=== PATIENT | male | born 1965 | race Caucasian/White ===

== ENCOUNTER 2016-11-26 17:28 | Emergency (ER) | payer MEDICARE, MEDICAID ==
[~2016-11-26] VITALS: Ht 167.6 cm; Wt 93.3 kg
[~2016-11-26 17:28] MED LIST: ALBUAER3 INH; ASPI1TAB69 PO; ATOR40TA16 PO; AZIT250T3 PO; BACT800T5 PO; CYCL1TAB29 PO; GABA300C5 PO; GLIP5TAB8 PO; HYDR-3535 PO; ISOS120T PO; LANTUS2P SQ; LYRI100C PO; MEDR4PAK PO; METO25TA6 PO; NITR0.4S SL; NYST10007 TOPICAL; PANT40TA3 PO; POTA10TA15 PO; PRED20 PO; PROM12.54 PO; RANI150C PO; SPIR25TA PO; SUMA100T2 PO
[2016-11-26 17:36] VITALS: BP 143/63; PULSE 106; RESP 18; TEMP 97.6; O2SAT 97
--- NOTE | 2016-11-26 17:53 | PD ---
HPI Chief Complaint: Pain: Acute or Chronic Time Seen by Provider: 17:47 Travel History International Travel<30 days: No Contact w/Intl Traveler<30days: No Traveled to known affect area: No History of Present Illness HPI PATIENT C/O ACUTE ON CHRONIC RLE PAIN FOR WHICH HE IS BEING FOLLOWED AND HAS HAD AN MRI FOR.....HOWEVER, HE ALSO C/O N/V WHICH OCCURRED [facility]OC WITH SEVERE RT HIP PAIN /LE PAIN.. .AFTER REVIEWING REPORT ON MRI FROM [facility]: MRI LUMBAR SPINE IMPRESSION: SMALL CENTRAL RIGHT PARACENTRAL DISC PROTRUSION AT L4/5 ABUTS THE RIGHT L5 NERVE ROOT IN LATERAL RECESS. THERE IS ARTHROPATHY AND FLUID IN THE FACETS AT L3/4. ALSO MILD BROAD BASED PROTRUSION AT L3/4 ABUTS BOTH L4 NERVE ROOTS IN LATERAL RECESS WELL THE EXITING BILATERAL L3 NERVE ROOTS. Past Medical History Diabetes mellitus type 2, on insulin History of CABG at age 37 5 vessel disease Hyperlipidemia Hypertension Chronic pain: Primarily located in his right leg and buttock. Tobacco abuse, current ENA Heartburn Peripheral neuropathy Past Surgical History Past Surgical History Triple bypass 2002 Stimulator placed 2015 Back surgery 2016 PFS Past Medical History Hx Anticoagulant Therapy: Yes (asa 81mg) Anxiety: Yes Depression: Yes Cardiac Catheterization: Yes Cardiovascular Problems: Yes (triple bypass mar 2003) High Cholesterol: Yes Chest Pain: Yes Coronary Artery Disease: Yes (TRIPLE BYPASS) Diabetes: Yes Diminished Hearing: No GERD: Yes Genitourinary: Yes (IBS) Headaches: Yes (Migraines) Hypertension: Yes Musculoskeletal: Yes ( CHRONIC BACK PROBLEMS) Neurologic: Yes (Neuropathy) Integumentary: Yes (CELLULITIS LEFT LEG 2006) Immunizations Current: Yes Migraines: Yes Myocardial Infarction: Yes ("FIVE HEART ATTACKS SINCE 2002.") Renal Failure: Yes Past Surgical History Body Medical Devices: Implanted spinal cord stimulator Coronary Artery Bypass Graft: Yes (2002) Other Surgery: Yes (Spinal cord stimulator) Social History Alcohol Use: No Tobacco Use: Yes (1 ppd) Substance Use: No Allergies-Medications (Allergen,Severity, Reaction): Coded Allergies: Lipitor (Verified Allergy, Mild, Pt denies allergy- states he currently takes this medication, 11/26/16) Pt denies allergy- states he currently takes this medication 03/08/15 Morphine (Verified Adverse Reaction, Mild, vomiting, 11/26/16) Reported Meds & Prescriptions Reported Meds & Active Scripts Active Proair Hfa 8.5 GM Inh (Albuterol Sulfate) 90 Mcg/Act Aer 1 Puff INH Q4H PRN 108 mcg/actuation Glipizide 5 Mg Tab 5 Mg PO BIDAC Take 30 minutes before a meal Sumatriptan (Sumatriptan Succinate) 100 Mg Tab 100 Mg PO ONCE PRN If a satisfactory response has not been obtained at 2 hours, a second dose may be administered Metoprolol Succinate ER 24 HR (Metoprolol Succinate) 25 Mg Tab 12.5 Mg PO DAILY Potassium Chloride Microencaps 10 Meq Tab 10 Meq PO DAILY Reported Percocet (Oxycodone-Acetaminophen) 10-325 mg Tab 1 Tab PO Q6H PRN Aspirin 81 Mg Chew 81 Mg CHEW DAILY Lantus Inj (Insulin Glargine) 1,000 Unit/10 Ml Vial 45 Units SQ DAILY Nitrostat SL (Nitroglycerin) 0.4 Mg Subl 0.4 Mg SL DIRECTED PRN 1 tablet under the tongue as needed for chest pain. Repeat every 5 minutes for a total of 3 DOSES or call 911 if NO relief. Atorvastatin (Atorvastatin Calcium) 40 Mg Tab 40 Mg PO HS Ranitidine (Ranitidine HCl) 150 Mg Cap 150 Mg PO BID Lyrica (Pregabalin) 100 Mg Cap 150 Mg PO BID Pantoprazole (Pantoprazole Sodium) 40 Mg Tab 40 Mg PO BID Isosorbide Mononitrate ER (Isosorbide Mononitrate) 120 Mg Cat 120 Mg PO DAILY Gabapentin 300 Mg Cap 400 Mg PO TID Review of Systems Except as stated in HPI: all other systems reviewed are Neg Gastrointestinal: Positive: Nausea, Vomiting Physical Exam Narrative GENERAL: SKIN: Warm and dry. HEAD: Atraumatic. Normocephalic. EYES: Pupils equal and round. No scleral icterus. No injection or drainage. ENT: No nasal bleeding or discharge. Mucous membranes pink and moist. NECK: Trachea midline. No JVD. CARDIOVASCULAR: Regular rate and rhythm. RESPIRATORY: No accessory muscle use. Clear to auscultation. Breath sounds equal bilaterally. GASTROINTESTINAL: Abdomen soft, non-tender, nondistended. Hepatic and splenic margins not palpable. MUSCULOSKELETAL: Extremities without clubbing, cyanosis, or edema. No obvious deformities. NEUROLOGICAL: Awake and alert. No obvious cranial nerve deficits. Motor grossly within normal limits. Five out of 5 muscle strength in the arms and legs. Normal speech. PSYCHIATRIC: Appropriate mood and affect; insight and judgment normal. Data Data Last Documented VS Vital Signs Date Time Temp Pulse Resp B/P Pulse Ox O2 Delivery O2 Flow Rate FiO2 11/26/16 19:13 16 11/26/16 18:48 74 110/57 100 Room Air 11/26/16 17:36 97.6 Orders Electrocardiogram (11/26/16 17:54) Complete Blood Count With Diff (11/26/16 17:54) Comprehensive Metabolic Panel (11/26/16 17:54) Ckmb (Isoenzyme) Profile (11/26/16 17:54) Troponin I (11/26/16 17:54) B-Type Natriuretic Peptide (11/26/16 17:54) Prothrombin Time / Inr (Pt) (11/26/16 17:54) Act Partial Throm Time (Ptt) (11/26/16 17:54) Lipase (11/26/16 17:54) Urinalysis - C+S If Indicated (11/26/16 17:54) Influenzae A/B Antigen (11/26/16 17:54) Chest, Single Ap (11/26/16 17:54) Salicylates (Aspirin) (11/26/16 17:54) Tylenol (Acetaminophen) (11/26/16 17:54) Hydromorphone Pf Inj (Dilaudid Pf Inj) (11/26/16 18:15) Ondansetron Inj (Zofran Inj) (11/26/16 18:15) Sodium Chlorid 0.9% 500 Ml Inj (Ns 500 M (11/26/16 18:15) Labs Laboratory Tests Test 11/26/16 11/26/16 11/26/16 18:15 18:30 19:15 Urine Color YELLOW Urine Turbidity CLEAR Urine pH 6.0 Urine Specific [place] 1.035 Urine Protein 30 mg/dL Urine Glucose (UA) 1000 OR GREATER mg/dL Urine Ketones 80 OR GREATER mg/dL Urine Occult Blood NEG Urine Nitrite NEG Urine Bilirubin MOD Urine Leukocyte Esterase NEG Urine RBC 0-3 /hpf Urine WBC 0-2 /hpf Urine Squamous Epithelial 0-5 /hpf Cells Microscopic Urinalysis Comment CULT NOT INDICATED White Blood Count 12.7 TH/MM3 Red Blood Count 6.09 MIL/MM3 Hemoglobin 16.4 GM/DL Hematocrit 49.2 % Mean Corpuscular Volume 80.9 FL Mean Corpuscular Hemoglobin 26.9 PG Mean Corpuscular Hemoglobin 33.3 % Concent Red Cell Distribution Width 13.4 % Platelet Count 199 TH/MM3 Mean Platelet Volume 9.2 FL Neutrophils (%) (Auto) 79.1 % Lymphocytes (%) (Auto) 12.8 % Monocytes (%) (Auto) 5.3 % Eosinophils (%) (Auto) 0.2 % Basophils (%) (Auto) 2.6 % Neutrophils # (Auto) 10.1 TH/MM3 Lymphocytes # (Auto) 1.6 TH/MM3 Monocytes # (Auto) 0.7 TH/MM3 Eosinophils # (Auto) 0.0 TH/MM3 Basophils # (Auto) 0.3 TH/MM3 CBC Comment DIFF FINAL Differential Comment B-Type Natriuretic Peptide 43 PG/ML Prothrombin Time 11.0 SEC Prothromb Time International 1.0 RATIO Ratio Activated Partial 29.9 SEC Thromboplast Time Sodium Level 139 MEQ/L Potassium Level 4.3 MEQ/L Chloride Level 102 MEQ/L Carbon Dioxide Level 25.9 MEQ/L Anion Gap 11 MEQ/L Blood Urea Nitrogen 20 MG/DL Creatinine 1.20 MG/DL Estimat Glomerular Filtration 64 ML/MIN Rate Random Glucose 152 MG/DL Calcium Level 9.2 MG/DL Total Bilirubin 0.5 MG/DL Aspartate Amino Transf 25 U/L (AST/SGOT) Alanine Aminotransferase 30 U/L (ALT/SGPT) Total Protein 7.0 GM/DL Albumin 3.5 GM/DL Lipase 83 U/L [facility] Medical Decision Making Medical Screen Exam Complete: Yes Emergency Medical Condition: Yes Medical Record Reviewed: Yes Interpretation(s) NSR 89, IRBBB, LVH, NONSPECIFIC STT CHANGES Differential Diagnosis ACUTE ON CHRONIC BREAKTHROUGH PAIN V ENTERITIS V SBO V ILEUS V ATYPICAL ND V NONSTEMI Narrative Course PATIENT NO E/O ND ON EKG, NO E/O SBO CLINICALLY, AND TOLERATED PO WELL ( FURTHERMORE PATIENT HIMSELF REFUSED CT HE WAS FEELING GREAT AFTER INITIAL DOSING OF PAIN MEDICATION). Diagnosis Primary Impression: ACUTE ON CHRONIC BREAKTHROUGH PAIN Disposition: 01 DISCHARGE HOME Condition: Stable Anant Morrow MD Nov 26, 2016 17:53
[2016-11-26] MEDS ORDERED: HYDROmorphone HCL PF 1 MG/ML VIAL IV PUSH ONE ×2 (18:15→20:00)
[2016-11-26] MEDS ORDERED: ONDANSETRON HCL 4 MG/2 ML VIAL IV PUSH ONE ×2 (18:15→20:00)
[2016-11-26] MEDS ORDERED: SODIUM CHLORID 0.9% 500 ML INJ 500 ML IV ONE (18:15)
--- NOTE | 2016-11-26 18:15 | RADRPT ---
EXAM DATE/TIME: 11/26/2016 18:00 [facility] COMPARISON: No previous studies available for comparison. INDICATIONS : Shortness of breath. MEDICAL HISTORY : Cardiovascular disease. Hypercholesterolemia. SURGICAL HISTORY : CABG. Spinal stimulator. ENCOUNTER: Initial ACUITY: 1 day PAIN SCORE: 0/10 LOCATION: Bilateral chest FINDINGS: A single view of the chest demonstrates the lungs to be symmetrically aerated without evidence of mas s, infiltrate or effusion. The cardiomediastinal contours are unremarkable. Osseous structures are intact. Evidence of prior median sternotomy.. CONCLUSION: The lungs are clear. Fabio Dockery MD on November 26, 2016 at 18:13 Board Certified Radiologist. This report was verified electronically.
[2016-11-26 18:41] LABS: AUTOMATED NEUTROPHIL # 10.1 TH/MM3 (1.8-7.7); BASOPHIL # 0.3 TH/MM3 (0-0.2); BASOPHIL % 2.6 % (0.0-2.0); EOSINOPHIL % 0.2 % (0.0-4.0); HEMATOCRIT 49.2 % (39.0-51.0); HEMO FLAGS DIFF FINAL; LYMPH % 12.8 % (9.0-44.0); LYMPHOCYTE # 1.6 TH/MM3 (1.0-4.8); MEAN CELL VOLUME 80.9 FL (80.0-100.0); MEAN CORPUSCULAR HEMOGLOBIN 26.9 PG (27.0-34.0); MEAN CORPUSCULAR HGB CONC 33.3 % (32.0-36.0); MONO % 5.3 % (0.0-8.0); NEUT % 79.1 % (16.0-70.0); PLATELET COUNT 199 TH/MM3 (150-450); RED BLOOD COUNT 6.09 MIL/MM3 (4.50-5.90); RED CELL DISTRIBUTION WIDTH 13.4 % (11.6-17.2); WHITE BLOOD COUNT 12.7 TH/MM3 (4.0-11.0)
[2016-11-26 18:45] LABS: BLOOD, URINE NEG (NEG); NITRITE,URINE NEG (NEG)
[2016-11-26] MEDS ORDERED: ASPI81CH CHEW (18:46)
[2016-11-26] MEDS ORDERED: PERC10TA27 PO (18:46)
[2016-11-26 18:48] VITALS: BP 110/57; PULSE 74; RESP 18; O2SAT 100
[2016-11-26 18:51] LABS: GLUCOSE,URINE 1000 OR GREATER mg/dL (NEG); KETONE, URINE 80 OR GREATER mg/dL (NEG)
[2016-11-26 18:52] LABS: URINE COLOR YELLOW (YELLW/STRAW)
[2016-11-26 18:53] LABS: COMMENT (UR) CULT NOT INDICATED; CULTURE IF INDICATED CULT NOT INDICATED; RBC, URINE 0-3 /hpf (0-3); SQUAMOUS EPITHELIAL CELL URINE 0-5 /hpf (0-5); WBC, URINE 0-2 /hpf (0-5)
[2016-11-26 19:06] VITALS: BP 120/63; PULSE 78; RESP 17; O2SAT 95
[2016-11-26 19:35] LABS: CHLORIDE 102 MEQ/L (98-107); POTASSIUM 4.3 MEQ/L (3.5-5.1); SODIUM (NA) 139 MEQ/L (136-145)
[2016-11-26 19:39] LABS: ANION GAP 11 MEQ/L (5-15); BICARBONATE 25.9 MEQ/L (21.0-32.0); BLOOD UREA NITROGEN 20 MG/DL (7-18)
[2016-11-26 19:40] LABS: APTT (PATIENT) 29.9 SEC (24.3-30.1)
[2016-11-26 19:41] LABS: ALT (GPT) 30 U/L (12-78)
[2016-11-26 19:42] LABS: AST (GOT) 25 U/L (15-37); GLOMERULAR FILTRATION RATE 64 ML/MIN (>89)
[2016-11-26 19:43] LABS: TOTAL BILIRUBIN ADULT 0.5 MG/DL (0.2-1.0)
[2016-11-26 19:44] LABS: ALKALINE PHOSPHATASE 97 U/L (45-117)
[2016-11-26] MEDS ORDERED: DEXAMETHASONE SOD PHOS 20 MG/5 ML VIAL IM ONE (20:00)
[2016-11-26 20:23] LABS: CREATINE KINASE 100 U/L (39-308)
[2016-11-26 20:38] VITALS: BP 105/55; PULSE 71; RESP 18; O2SAT 93
[2016-11-26 21:26] LABS: ACETAMINOPHEN LESS THAN 2.0 MCG/ML (10.0-30.0)
[2016-11-26 21:46] VITALS: BP 110/55; TEMP 97.8
--- NOTE | 2016-11-27 13:53 | EKG ---
Date Performed: 11/26/2016 Time Performed: 18:11:17 PTAGE: 51 years EKG: Sinus rhythm MARKED LEFT AXIS DEVIATION PATTERN CONSISTENT WITH PULMONARY DISEASE INCOMPLETE RIGHT BUNDLE BRANCH BLOCK LEFT VENTRICULAR HYPERTROPHY AND ST-T CHANGE Since previous tracing, no significant change note d ABNORMAL ECG PREVIOUS TRACING : 05/06/2015 10.24 DOCTOR: Jarvis Morton Interpretating Date/Time 11/27/2016 13:51:45
== END 2016-11-26 21:56 | disposition home or self-care (01) ==
LOC: PHED 17:28
DX: M79.604 Pain in right leg (principal); M25.551 Pain in right hip; G89.29 Other chronic pain; R11.2 Nausea with vomiting, unspecified; R94.31 Abnormal electrocardiogram [ECG] [EKG]; E11.9 Type 2 diabetes mellitus without complications; E78.5 Hyperlipidemia, unspecified; I10 Essential (primary) hypertension; G47.33 Obstructive sleep apnea (adult) (pediatric); N19 Unspecified kidney failure; I25.2 Old myocardial infarction; F17.200 Nicotine dependence, unspecified, uncomplicated; Z79.4 Long term (current) use of insulin; Z95.1 Presence of aortocoronary bypass graft; Z87.39 Personal history of other diseases of the musculoskeletal system and connective tissue; Z87.19 Personal history of other diseases of the digestive system; Z86.69 Personal history of other diseases of the nervous system and sense organs
CPT/HCPCS: 71010; 80053; 80307; 81001; 82550; 83690; 83880; 84484; 85025; 85610; 85730; 87804; 93005; 96361; 96374; 96375; 96376; 99285; J1100; J1170; J2405; J7040

== ENCOUNTER 2016-11-28 08:28 | Emergency (ER) | payer MEDICARE, MEDICAID ==
[~2016-11-28] VITALS: Ht 167.6 cm; Wt 93.0 kg
[~2016-11-28 08:28] MED LIST changes: +ASPI81CH CHEW; +PERC10TA27 PO
[2016-11-28 08:33] VITALS: BP 113/66; PULSE 82; RESP 16; TEMP 97.3; O2SAT 99
[2016-11-28] MEDS ORDERED: CYCLOBENZAPRINE HCL 10 MG TAB PO ONE (09:00)
[2016-11-28] MEDS ORDERED: HYDROmorphone HCL PF 1 MG/ML VIAL IM ONE (09:00)
[2016-11-28] MEDS ORDERED: KETOROLAC TROMETHAMINE 60 MG/2 ML (IM) VIAL IM ONE (09:00)
[2016-11-28] MEDS ORDERED: MEDR4PAK PO (09:06)
[2016-11-28] MEDS ORDERED: CYCL1TAB29 PO (09:06)
--- NOTE | 2016-11-28 09:07 | PD ---
HPI Chief Complaint: Musculoskeletal Complaint Time Seen by Provider: 08:40 Travel History International Travel<30 days: No Contact w/Intl Traveler<30days: No Traveled to known affect area: No History of Present Illness HPI Patient is a 51 year old male, with history of chronic pain, who comes in complaining of pain to his right hip. He was here 2 days ago for the same thing. He takes Percocet, 10mg, at home, which he says has not been helping. He had an MRI 3 weeks ago that showed and pinched nerve. He says he has been trying to get in to see his doctor because he believes a surgery would help him feel better. He says Saturday, he was helping his son lifting bowling balls when the increased pain started. The pain is in his right hip and shoots down his leg. He denies any direct trauma or falls. He denies any redness or warmth to his joint. PFSH Past Medical History Hx Anticoagulant Therapy: Yes (asa 81mg) Anxiety: Yes Depression: Yes Cardiac Catheterization: Yes Cardiovascular Problems: Yes (triple bypass mar 2003, [place] X 5) High Cholesterol: Yes Chest Pain: Yes Coronary Artery Disease: Yes (TRIPLE BYPASS) Diabetes: Yes Patient Takes Glucophage: No Diminished Hearing: No GERD: Yes Genitourinary: Yes (IBS) Headaches: Yes (Migraines) Hypertension: Yes Musculoskeletal: Yes ( CHRONIC BACK PROBLEMS) Neurologic: Yes (Neuropathy) Integumentary: Yes (CELLULITIS LEFT LEG 2006) Immunizations Current: Yes Migraines: Yes Myocardial Infarction: Yes ("FIVE HEART ATTACKS SINCE 2002.") Renal Failure: Yes Past Surgical History Body Medical Devices: Implanted spinal cord stimulator Coronary Artery Bypass Graft: Yes (2002) Other Surgery: Yes (Spinal cord stimulator) Social History Alcohol Use: No Tobacco Use: No (QUIT 15 DAYS AGO) Substance Use: No Allergies-Medications (Allergen,Severity, Reaction): Coded Allergies: Lipitor (Verified Allergy, Mild, Pt denies allergy- states he currently takes this medication, 11/28/16) Pt denies allergy- states he currently takes this medication 03/08/15 Morphine (Verified Adverse Reaction, Mild, vomiting, 11/28/16) Reported Meds & Prescriptions Reported Meds & Active Scripts Active Proair Hfa 8.5 GM Inh (Albuterol Sulfate) 90 Mcg/Act Aer 1 Puff INH Q4H PRN 108 mcg/actuation Glipizide 5 Mg Tab 5 Mg PO BIDAC Take 30 minutes before a meal Sumatriptan (Sumatriptan Succinate) 100 Mg Tab 100 Mg PO ONCE PRN If a satisfactory response has not been obtained at 2 hours, a second dose may be administered Metoprolol Succinate ER 24 HR (Metoprolol Succinate) 25 Mg Tab 12.5 Mg PO DAILY Potassium Chloride Microencaps 10 Meq Tab 10 Meq PO DAILY Reported Percocet (Oxycodone-Acetaminophen) 10-325 mg Tab 1 Tab PO Q6H PRN Aspirin 81 Mg Chew 81 Mg CHEW DAILY Lantus Inj (Insulin Glargine) 1,000 Unit/10 Ml Vial 45 Units SQ DAILY Nitrostat SL (Nitroglycerin) 0.4 Mg Subl 0.4 Mg SL DIRECTED PRN 1 tablet under the tongue as needed for chest pain. Repeat every 5 minutes for a total of 3 DOSES or call 911 if NO relief. Atorvastatin (Atorvastatin Calcium) 40 Mg Tab 40 Mg PO HS Ranitidine (Ranitidine HCl) 150 Mg Cap 150 Mg PO BID Lyrica (Pregabalin) 100 Mg Cap 150 Mg PO BID Pantoprazole (Pantoprazole Sodium) 40 Mg Tab 40 Mg PO BID Isosorbide Mononitrate ER (Isosorbide Mononitrate) 120 Mg Cat 120 Mg PO DAILY Gabapentin 300 Mg Cap 400 Mg PO TID Review of Systems General / Constitutional: No: Fever HENT: No: Headaches, Lightheadedness Cardiovascular: No: Chest Pain or Discomfort Respiratory: No: Shortness of Breath Gastrointestinal: No: Nausea, Vomiting Genitourinary: No: Dysuria, Decreased Urinary Output Musculoskeletal: Positive: Pain Skin: No Rash, No Change in Pigmentation Neurologic: No: Weakness, Dizziness, Sensory Disturbance Physical Exam Narrative GENERAL: Awake and alert, in no acute distress. SKIN: Focused skin assessment warm/dry. HEAD: Atraumatic. Normocephalic. EYES: Pupils equal and round. No scleral icterus. ENT: Mucous membranes pink and moist. CARDIOVASCULAR: Regular rate and rhythm. No murmur appreciated. RESPIRATORY: No accessory muscle use. Clear to auscultation. Breath sounds equal bilaterally. MUSCULOSKELETAL: No obvious deformities. No clubbing. No cyanosis. No edema. Pain with movement of the right hip. Tender to palpation of the hip and sacroiliac area on the right. No joint erythema, warmth or swelling. NEUROLOGICAL: Awake and alert. No obvious cranial nerve deficits. Motor grossly within normal limits. Normal speech. Data Data Last Documented VS Vital Signs Date Time Temp Pulse Resp B/P Pulse Ox O2 Delivery O2 Flow Rate FiO2 11/28/16 08:33 97.3 82 16 113/66 99 Orders Ketorolac Inj (Toradol Inj) (11/28/16 09:00) Cyclobenzaprine (Flexeril) (11/28/16 09:00) Hydromorphone Pf Inj (Dilaudid Pf Inj) (11/28/16 09:00) [facility] Medical Decision Making Medical Screen Exam Complete: Yes Emergency Medical Condition: Yes Medical Record Reviewed: Yes Differential Diagnosis muscle strain vs sciatica vs chronic pain Narrative Course Patient is a 51 year old male who comes in complaining of pain to his right hip. Exam shows pain with movement and tenderness to palpation. Patient given pain medicine. Will be discharged with Flexeril and a medrol dose pack. He is advised the steroids will raise his blood sugars and to adjust his medications for this. I spent time counseling the patient on other options besides opiates for pain control. I suggested he try NSAIDs and meet with his doctor to get back in physical therapy. Patient advised to follow up with his doctors. Advised to return to the ED as needed for any worsening symptoms. Diagnosis Primary Impression: Hip pain Qualified Code: M25.551 - Pain of right hip joint Patient Instructions: General Instructions, Hip Pain (ED) Additional Instructions: Follow up with your doctor. Try NSAIDs and physical therapy to help with pain. Monitor your sugar while taking the steroids as it will be increased due to the medication. Return to the ED as needed for any worsening symptoms. Scripts Methylprednisolone Dosepak (Medrol Dosepak)4 Mg Dspk4 Mg PO DIRECTED #1 DSPK Ref 0 Per Pharmacist direction Prov:Kimberly Torres MD 11/28/16 Cyclobenzaprine (Flexeril)10 Mg Tab10 Mg PO TID #15 TAB Ref 0 Prov:Kimberly Torres MD 11/28/16 Disposition: 01 DISCHARGE HOME Condition: Stable Kimberly Torres MD Nov 28, 2016 09:06
[2016-11-28 09:43] VITALS: BP 101/61
== END 2016-11-28 09:45 | disposition home or self-care (01) ==
LOC: PHED 08:28
DX: M25.551 Pain in right hip (principal); I10 Essential (primary) hypertension; I25.2 Old myocardial infarction
CPT/HCPCS: 96372; 99284; J1170; J1885

== ENCOUNTER 2016-12-25 09:57 | Emergency (ER) | payer MEDICARE, MEDICAID ==
[~2016-12-25] VITALS: Ht 170.2 cm; Wt 92.0 kg
[~2016-12-25 09:57] MED LIST changes: -ASPI1TAB69 PO; -AZIT250T3 PO; -BACT800T5 PO; -HYDR-3535 PO; -NYST10007 TOPICAL; -PRED20 PO; -PROM12.54 PO; -SPIR25TA PO
[2016-12-25 10:05] VITALS: BP 127/70; PULSE 110; RESP 18; TEMP 97.2; O2SAT 98
--- NOTE | 2016-12-25 11:17 | PD ---
HPI Chief Complaint: Skin Problem Time Seen by Provider: 11:05 Travel History International Travel<30 days: No Contact w/Intl Traveler<30days: No Traveled to known affect area: No History of Present Illness HPI 51-year-old male with past medical history of DM type II since emergency department for evaluation of a groin and penile rash 7 days. Patient reports that the rash is pruritic and painful and weeping. It is not responding to jock itch cream. He reports similar symptoms in the past but this one is more severe. He denies fever or chills. He denies dysuria, frequency, urgency, or testicular pain. Symptom severity moderate. Pain scale 3/10. PFSH Past Medical History Hx Anticoagulant Therapy: Yes (asa 81mg) Anxiety: Yes Depression: Yes Cardiac Catheterization: Yes Cardiovascular Problems: Yes (triple bypass mar 2003, [place] X 5) High Cholesterol: Yes Chest Pain: Yes Coronary Artery Disease: Yes (TRIPLE BYPASS) Diabetes: Yes Patient Takes Glucophage: No Diminished Hearing: No GERD: Yes Genitourinary: Yes (IBS) Headaches: Yes (Migraines) Hypertension: Yes Musculoskeletal: Yes ( CHRONIC BACK PROBLEMS) Neurologic: Yes (Neuropathy) Integumentary: Yes (CELLULITIS LEFT LEG 2006) Immunizations Current: Yes Migraines: Yes Myocardial Infarction: Yes ("FIVE HEART ATTACKS SINCE 2002.") Renal Failure: Yes ?: Not Past Surgical History Body Medical Devices: Implanted spinal cord stimulator Coronary Artery Bypass Graft: Yes (2002) Other Surgery: Yes (Spinal cord stimulator, removed) Social History Alcohol Use: No Tobacco Use: No (QUIT 15 DAYS AGO) Substance Use: No Allergies-Medications (Allergen,Severity, Reaction): Coded Allergies: atorvastatin (Unverified Allergy, Mild, Pt denies allergy- states he currently takes this medication, 12/25/16) Pt denies allergy- states he currently takes this medication 03/08/15 morphine (Unverified Adverse Reaction, Mild, vomiting, 12/25/16) Reported Meds & Prescriptions Reported Meds & Active Scripts Active Proair Hfa 8.5 GM Inh (Albuterol Sulfate) 90 Mcg/Act Aer 1 Puff INH Q4H PRN 108 mcg/actuation Glipizide 5 Mg Tab 5 Mg PO BIDAC Take 30 minutes before a meal Sumatriptan (Sumatriptan Succinate) 100 Mg Tab 100 Mg PO ONCE PRN If a satisfactory response has not been obtained at 2 hours, a second dose may be administered Metoprolol Succinate ER 24 HR (Metoprolol Succinate) 25 Mg Tab 12.5 Mg PO DAILY Potassium Chloride Microencaps 10 Meq Tab 10 Meq PO DAILY Reported Percocet (Oxycodone-Acetaminophen) 10-325 mg Tab 1 Tab PO Q6H PRN Aspirin 81 Mg Chew 81 Mg CHEW DAILY Lantus Inj (Insulin Glargine) 1,000 Unit/10 Ml Vial 45 Units SQ DAILY Nitrostat SL (Nitroglycerin) 0.4 Mg Subl 0.4 Mg SL DIRECTED PRN 1 tablet under the tongue as needed for chest pain. Repeat every 5 minutes for a total of 3 DOSES or call 911 if NO relief. Atorvastatin (Atorvastatin Calcium) 40 Mg Tab 40 Mg PO HS Ranitidine (Ranitidine HCl) 150 Mg Cap 150 Mg PO BID Lyrica (Pregabalin) 100 Mg Cap 150 Mg PO BID Pantoprazole (Pantoprazole Sodium) 40 Mg Tab 40 Mg PO BID Isosorbide Mononitrate ER (Isosorbide Mononitrate) 120 Mg Cat 120 Mg PO DAILY Gabapentin 300 Mg Cap 400 Mg PO TID Review of Systems Except as stated in HPI: all other systems reviewed are Neg General / Constitutional: No: Fever Eyes: No: Visual changes HENT: No: Headaches Cardiovascular: No: Chest Pain or Discomfort Respiratory: No: Shortness of Breath Gastrointestinal: No: Abdominal Pain Genitourinary: No: Dysuria Musculoskeletal: No: Pain Skin: Positive Rash (groin and penile) Physical Exam Narrative GENERAL: Well-nourished, well-developed patient. HEAD: Normocephalic. EYES: No scleral icterus. No injection or drainage. NECK: Supple, trachea midline. No JVD or lymphadenopathy. CARDIOVASCULAR: Regular rate and rhythm without murmurs, gallops, or rubs. RESPIRATORY: Breath sounds equal bilaterally. No accessory muscle use. GASTROINTESTINAL: Abdomen soft, non-tender, nondistended. GENITOURINARY: Circumcised. Testes descended bilaterally without evidence of rotation. No lesions or erythema. No urethral discharge. Confluent erythematous rash to bilateral groins and glans penis. The area has satellite lesions consistent with fungal rash. The area is weeping clear yellowish fluid. There is no induration, abscess, surrounding cellulitis. Data Data Last Documented VS Vital Signs Date Time Temp Pulse Resp B/P (MAP) Pulse Ox O2 Delivery O2 Flow Rate FiO2 12/25/16 10:05 97.2 110 18 127/70 (89) 98 MDM Medical Decision Making Medical Screen Exam Complete: Yes Emergency Medical Condition: Yes Differential Diagnosis Tinea cruris, balanitis, cellulitis Narrative Course 51-year-old male with history of type 2 diabetes presents emergency department for evaluation of painful pruritic weeping rash to his groin and penis 7 days. The rash is not responding to [id number] antifungal cream. Patient reports he's had similar symptoms in the past with jock itch. He reports this rash is more severe than the past. He reports his blood sugars have been under 200. On exam patient has what is consistent with tinea cruris and balanitis. There is areas of excoriation that are weeping and open. Patient will be treated for both fungal and bacterial infection with Diflucan and Keflex. He was instructed to follow-up his primary doctor. Patient verbalizes understanding and agrees to plan Diagnosis Primary Impression: Tinea cruris Additional Impression: Balanitis Referrals: Primary Care Physician Additional Instructions: Take the medication as prescribed. Wash the area with soap and water daily. Keep the area clean and dry. Follow-up with your primary doctor. Scripts Cephalexin (Keflex) 500 Mg Cap 500 MG PO Q12H for Infection for 7 Days, CAP 0 Refills Prov: Lisa Copeland 12/25/16 Fluconazole (Diflucan) 150 Mg Tab 150 MG PO ONCE for Infection, #1 TAB 0 Refills Prov: Lisa Copeland 12/25/16 Disposition: 01 DISCHARGE HOME Condition: Stable Lisa Copeland Dec 25, 2016 11:17
[2016-12-25] MEDS ORDERED: CEPH-460 PO (11:27)
[2016-12-25] MEDS ORDERED: DIFL150T PO (11:27)
[2016-12-25 11:31] VITALS: BP 119/83; PULSE 79; RESP 17; O2SAT 99
== END 2016-12-25 11:40 | disposition home or self-care (01) ==
LOC: PHEFT 09:57
DX: B35.6 Tinea cruris (principal); N48.1 Balanitis; E11.9 Type 2 diabetes mellitus without complications; I10 Essential (primary) hypertension; I25.10 Atherosclerotic heart disease of native coronary artery without angina pectoris; I25.2 Old myocardial infarction; Z79.82 Long term (current) use of aspirin; Z95.1 Presence of aortocoronary bypass graft
CPT/HCPCS: 99284

== ENCOUNTER 2017-01-08 11:00 | Emergency (ER) | payer MEDICAID, MEDICARE ==
[~2017-01-08] VITALS: Ht 170.2 cm; Wt 99.7 kg
[~2017-01-08 11:00] MED LIST changes: +CEPH-460 PO; -CYCL1TAB29 PO; +DIFL150T PO; -MEDR4PAK PO
[2017-01-08 11:29] VITALS: BP 118/75; PULSE 85; RESP 16; TEMP 98.9; O2SAT 94
== END 2017-01-08 13:30 | disposition left against medical advice (07) ==
LOC: PHED 11:00
DX: Z53.9 Procedure and treatment not carried out, unspecified reason (principal)
CPT/HCPCS: 99281

== ENCOUNTER 2017-01-11 10:48 | Emergency (ER) | payer MEDICAID, MEDICARE ==
[~2017-01-11] VITALS: Ht 170.2 cm; Wt 89.8 kg
[2017-01-11 10:54] VITALS: BP 115/70; PULSE 97; RESP 16; TEMP 97.5; O2SAT 97
--- NOTE | 2017-01-11 11:58 | PD ---
HPI Chief Complaint: Skin Problem Time Seen by Provider: 11:44 Travel History International Travel<30 days: No Contact w/Intl Traveler<30days: No Traveled to known affect area: No History of Present Illness HPI This 51-year-old male is complaining of infection of his right second finger in his left leg. He banged the right second finger while sleeping and had a blister. The blister popped and there was pus inside the blister. He has had some redness and swelling of his left leg he has a history of diabetes. He has a history of coronary artery bypass. He has a history of chronic back pain. PFSH Past Medical History Hx Anticoagulant Therapy: Yes Anxiety: Yes Depression: Yes Cardiac Catheterization: Yes Cardiovascular Problems: Yes High Cholesterol: Yes Chest Pain: Yes Coronary Artery Disease: Yes (TRIPLE BYPASS) Diabetes: Yes Patient Takes Glucophage: Yes Diminished Hearing: No GERD: Yes Genitourinary: Yes (IBS) Headaches: Yes (Migraines) Hypertension: Yes Medical other: Yes (BACK STIMULATER REMOVED) Musculoskeletal: Yes ( CHRONIC BACK PROBLEMS) Neurologic: Yes (Neuropathy) Integumentary: Yes (CELLULITIS LEFT LEG 2006) Immunizations Current: Yes Migraines: Yes Myocardial Infarction: Yes ("FIVE HEART ATTACKS SINCE 2002.") Renal Failure: Yes Tetanus Vaccination: > 5 Years Influenza Vaccination: Yes ?: Not Past Surgical History Body Medical Devices: Implanted spinal cord stimulator Coronary Artery Bypass Graft: Yes (2002) Other Surgery: Yes (Spinal cord stimulator, removed) Social History Alcohol Use: No Tobacco Use: No Substance Use: No Allergies-Medications (Allergen,Severity, Reaction): Coded Allergies: atorvastatin (Unverified Allergy, Mild, Pt denies allergy- states he currently takes this medication, 01/11/17) Pt denies allergy- states he currently takes this medication 03/08/15 morphine (Unverified Adverse Reaction, Mild, vomiting, 01/11/17) Reported Meds & Prescriptions Reported Meds & Active Scripts Active Proair Hfa 8.5 GM Inh (Albuterol Sulfate) 90 Mcg/Act Aer 1 Puff INH Q4H PRN 108 mcg/actuation Glipizide 5 Mg Tab 5 Mg PO BIDAC Take 30 minutes before a meal Sumatriptan (Sumatriptan Succinate) 100 Mg Tab 100 Mg PO ONCE PRN If a satisfactory response has not been obtained at 2 hours, a second dose may be administered Metoprolol Succinate ER 24 HR (Metoprolol Succinate) 25 Mg Tab 12.5 Mg PO DAILY Potassium Chloride Microencaps 10 Meq Tab 10 Meq PO DAILY Reported Percocet (Oxycodone-Acetaminophen) 10-325 mg Tab 1 Tab PO Q6H PRN Aspirin 81 Mg Chew 81 Mg CHEW DAILY Lantus Inj (Insulin Glargine) 1,000 Unit/10 Ml Vial 45 Units SQ DAILY Nitrostat SL (Nitroglycerin) 0.4 Mg Subl 0.4 Mg SL DIRECTED PRN 1 tablet under the tongue as needed for chest pain. Repeat every 5 minutes for a total of 3 DOSES or call 911 if NO relief. Atorvastatin (Atorvastatin Calcium) 40 Mg Tab 40 Mg PO HS Ranitidine (Ranitidine HCl) 150 Mg Cap 150 Mg PO BID Lyrica (Pregabalin) 100 Mg Cap 150 Mg PO BID Pantoprazole (Pantoprazole Sodium) 40 Mg Tab 40 Mg PO BID Isosorbide Mononitrate ER (Isosorbide Mononitrate) 120 Mg Cat 120 Mg PO DAILY Gabapentin 300 Mg Cap 400 Mg PO TID Review of Systems General / Constitutional: Positive: Chills, No: Fever Eyes: No: Diploplia, Blurred Vision HENT: No: Headaches, Vertigo Cardiovascular: No: Chest Pain or Discomfort, Palpitations Respiratory: No: Cough, Shortness of Breath Gastrointestinal: No: Nausea, Vomiting Genitourinary: No: Urgency, Frequency Musculoskeletal: No: Myalgias Skin: Positive Rash Neurologic: No: Weakness, Dizziness Physical Exam Narrative GENERAL: Well-developed male SKIN: Focused skin assessment warm/dry. On the right second finger there is an area overlying the proximal phalanx on the dorsum of the finger which appears to be a ruptured blister. He has good flexion and extension of the finger. On the left leg there is erythema and warmth from the knee to the ankle on the lateral aspect of the leg HEAD: Atraumatic. Normocephalic. EYES: Pupils equal and round. No scleral icterus. No injection or drainage. ENT: No nasal bleeding or discharge. Mucous membranes pink and moist. NECK: Trachea midline. No JVD. CARDIOVASCULAR: Regular rate and rhythm. No murmur appreciated. RESPIRATORY: No accessory muscle use. Clear to auscultation. Breath sounds equal bilaterally. GASTROINTESTINAL: Abdomen soft, non-tender, nondistended. Hepatic and splenic margins not palpable. MUSCULOSKELETAL: No obvious deformities. No clubbing. No cyanosis. No edema. NEUROLOGICAL: Awake and alert. No obvious cranial nerve deficits. Motor grossly within normal limits. Normal speech. PSYCHIATRIC: Appropriate mood and affect; insight and judgment normal. Data Data Last Documented VS Vital Signs Date Time Temp Pulse Resp B/P (MAP) Pulse Ox O2 Delivery O2 Flow Rate FiO2 01/11/17 10:54 97.5 97 16 115/70 (85) 97 Orders Orders Piperacil-Tazo 4.5 Gm Premix (Zosyn 4.5 (01/11/17 12:00) Vancomycin Inj (Vancomycin Inj) (01/11/17 12:00) Complete Blood Count With Diff (01/11/17 12:08) Comprehensive Metabolic Panel (01/11/17 12:08) Lactic Acid Sepsis Protocol (01/11/17 12:08) Urinalysis - C+S If Indicated (01/11/17 12:08) Blood Culture (01/11/17 12:08) Wound Culture And Gram Stain (01/11/17 12:08) Blood Glucose (01/11/17 12:08) Ecg Monitoring (01/11/17 12:08) Iv Access Insert/Monitor (01/11/17 12:08) Oximetry (01/11/17 12:08) Oxygen Administration (01/11/17 12:08) Labs Laboratory Tests Test 01/11/17 12:25 White Blood Count 15.3 TH/MM3 Red Blood Count 5.42 MIL/MM3 Hemoglobin 14.6 GM/DL Hematocrit 43.8 % Mean Corpuscular Volume 81.0 FL Mean Corpuscular Hemoglobin 27.0 PG Mean Corpuscular Hemoglobin Concent 33.3 % Red Cell Distribution Width 13.4 % Platelet Count 175 TH/MM3 Mean Platelet Volume 9.8 FL Neutrophils (%) (Auto) 89.7 % Lymphocytes (%) (Auto) 4.3 % Monocytes (%) (Auto) 2.7 % Eosinophils (%) (Auto) 2.7 % Basophils (%) (Auto) 0.6 % Neutrophils # (Auto) 13.7 TH/MM3 Lymphocytes # (Auto) 0.7 TH/MM3 Monocytes # (Auto) 0.4 TH/MM3 Eosinophils # (Auto) 0.4 TH/MM3 Basophils # (Auto) 0.1 TH/MM3 CBC Comment DIFF FINAL Differential Comment Blood Urea Nitrogen 32 MG/DL Creatinine 1.30 MG/DL Random Glucose 191 MG/DL Total Protein 7.5 GM/DL Albumin 3.0 GM/DL Calcium Level 9.5 MG/DL Alkaline Phosphatase 104 U/L Aspartate Amino Transf (AST/SGOT) 20 U/L Alanine Aminotransferase (ALT/SGPT) 34 U/L Total Bilirubin 0.7 MG/DL Sodium Level 130 MEQ/L Potassium Level 4.5 MEQ/L Chloride Level 96 MEQ/L Carbon Dioxide Level 23.4 MEQ/L Anion Gap 11 MEQ/L Estimat Glomerular Filtration Rate 58 ML/MIN Lactic Acid Level 1.6 mmol/L [facility] Medical Decision Making Medical Screen Exam Complete: Yes Emergency Medical Condition: Yes Medical Record Reviewed: Yes Differential Diagnosis Differential includes cellulitis Narrative Course White count is 15,000. Patient was given an initial dose of Zosyn and vancomycin. Initial plan was to admit the patient. He wishes to try outpatient treatment have explained to him that he is at risk for treatment failure due to his diabetes and he understands this. He wishes to try outpatient treatment. I will prescribe Keflex and Bactrim Diagnosis Primary Impression: Cellulitis of left leg Scripts Sulfamethoxazole-Trimethoprim (Bactrim DS) 800-160 Mg Tab 1 TAB PO BID for Infection, #14 TAB 0 Refills Prov: Fritz Ma MD 01/11/17 Cephalexin (Keflex) 500 Mg Capsule 500 MG PO QID for Infection for 7 Days, CAP 0 Refills Prov: Fritz Ma MD 01/11/17 Disposition: 01 DISCHARGE HOME Condition: Stable Fritz Ma MD Jan 11, 2017 11:58
[2017-01-11] MEDS ORDERED: VANCOMYCIN INJ 1,250 MG in SODIUM CHLOR 0.9% 250 ML INJ 250 ML IV ONE (12:00)
[2017-01-11] MEDS ORDERED: PIPERACIL-TAZO 4.5 GM PREMIX 100 ML IV ONE (12:00)
[2017-01-11 12:43] LABS: AUTOMATED NEUTROPHIL # 13.7 TH/MM3 (1.8-7.7); BASOPHIL # 0.1 TH/MM3 (0-0.2); BASOPHIL % 0.6 % (0.0-2.0); EOSINOPHIL # 0.4 TH/MM3 (0-0.4); EOSINOPHIL % 2.7 % (0.0-4.0); HEMATOCRIT 43.8 % (39.0-51.0); LYMPH % 4.3 % (9.0-44.0); LYMPHOCYTE # 0.7 TH/MM3 (1.0-4.8); MEAN CORPUSCULAR HGB CONC 33.3 % (32.0-36.0); MONO % 2.7 % (0.0-8.0); NEUT % 89.7 % (16.0-70.0); PLATELET COUNT 175 TH/MM3 (150-450); RED BLOOD COUNT 5.42 MIL/MM3 (4.50-5.90); RED CELL DISTRIBUTION WIDTH 13.4 % (11.6-17.2); WHITE BLOOD COUNT 15.3 TH/MM3 (4.0-11.0)
[2017-01-11 12:47] LABS: HEMO FLAGS DIFF FINAL
[2017-01-11 12:53] LABS: CHLORIDE 96 MEQ/L (98-107); POTASSIUM 4.5 MEQ/L (3.5-5.1); SODIUM (NA) 130 MEQ/L (136-145)
[2017-01-11 12:57] LABS: ANION GAP 11 MEQ/L (5-15); BICARBONATE 23.4 MEQ/L (21.0-32.0); BLOOD UREA NITROGEN 32 MG/DL (7-18)
[2017-01-11 13:00] LABS: ALT (GPT) 34 U/L (12-78); AST (GOT) 20 U/L (15-37); GLOMERULAR FILTRATION RATE 58 ML/MIN (>89)
[2017-01-11 13:01] LABS: TOTAL BILIRUBIN ADULT 0.7 MG/DL (0.2-1.0)
[2017-01-11 13:03] LABS: ALKALINE PHOSPHATASE 104 U/L (45-117)
[2017-01-11] MEDS ORDERED: CEPH-460 PO (13:48)
[2017-01-11] MEDS ORDERED: BACT800T5 PO (13:48)
[2017-01-11 14:40] LABS: BLOOD, URINE NEG (NEG); GLUCOSE,URINE 1000 OR GREATER mg/dL (NEG); KETONE, URINE 40 mg/dL (NEG); NITRITE,URINE NEG (NEG); PH, URINE 5.5 (5.0-8.5)
[2017-01-11 14:45] LABS: METHOD OF COLLECTION CLEAN CATCH; URINE COLOR YELLOW (YELLW/STRAW)
[2017-01-11 14:46] LABS: COMMENT (UR) CULT NOT INDICATED; CULTURE IF INDICATED CULT NOT INDICATED; RBC, URINE 0-3 /hpf (0-3); SQUAMOUS EPITHELIAL CELL URINE 0-5 /hpf (0-5)
[2017-01-11 15:26] VITALS: O2SAT 98
[2017-01-11 15:27] VITALS: BP 102/56
== END 2017-01-11 15:41 | disposition home or self-care (01) ==
LOC: PHED 10:48
DX: L03.116 Cellulitis of left lower limb (principal); B95.0 Streptococcus, group A, as the cause of diseases classified elsewhere; E11.9 Type 2 diabetes mellitus without complications; Z95.1 Presence of aortocoronary bypass graft; Z79.4 Long term (current) use of insulin
CPT/HCPCS: 80053; 81001; 83605; 85025; 86403; 87040; 87070; 87184; 87186; 87205; 96365; 96366; 96367; 99284; J2543; J3370; J7050

== ENCOUNTER 2017-01-12 10:30 | Inpatient (IN) | payer MEDICARE, MEDICAID ==
[~2017-01-12] VITALS: Ht 170.2 cm; Wt 95.9 kg
[~2017-01-12 10:30] MED LIST changes: +BACT800T5 PO; -DIFL150T PO
[2017-01-12 10:35] VITALS: BP 128/74; PULSE 102; RESP 16; TEMP 97.9; O2SAT 97
[2017-01-12] MEDS ORDERED: SODIUM CHLOR 0.9% 1000 ML INJ 1,000 ML IV ONE ×2 (10:50)
[2017-01-12] MEDS ORDERED: SODIUM CHLOR 0.9% 1000 ML INJ 700 ML IV ONE (10:50)
[2017-01-12] MEDS ORDERED: ACETAMINOPHEN 325 MG TAB PO ONE (11:00)
[2017-01-12] MEDS ORDERED: VANCOMYCIN INJ 1,000 MG in SODIUM CHLOR 0.9% 250 ML INJ 250 ML IV ONE (11:00)
[2017-01-12] MEDS ORDERED: PIPERACIL-TAZO 4.5 GM PREMIX 100 ML IV ONE (11:00)
[2017-01-12] MEDS ORDERED: HYDROmorphone HCL PF 1 MG/ML VIAL IV ONE (11:00)
[2017-01-12] MEDS ORDERED: ONDANSETRON HCL 4 MG/2 ML VIAL IV ONE (11:00)
--- NOTE | 2017-01-12 11:01 | PD ---
HPI Chief Complaint: Skin Problem Time Seen by Provider: 10:41 Travel History International Travel<30 days: No Contact w/Intl Traveler<30days: No Traveled to known affect area: No History of Present Illness HPI The patient is a 51-year-old male who presents to the emergency department for left lower extremity pain. The patient was seen in emergency department on January 11, 2017 and diagnosed with cellulitis of the left lower extremity was recommended to have admission. The patient blood cultures drawn at that time, was noted to have an elevated white count of 15.6 and a normal lactic acid. Dr. Rhodes recommended admission, however, the patient wanted to try outpatient therapy. The patient was discharged home on oral antibiotics, however, his blood cultures became positive this morning a call was placed back to the patient to return to the emergency department. The patient notes no improvement in the left lower extremity cellulitis which extends from the ankle to the knee. He does know some generalized malaise, pain with place the legs down, but denies any actual fever. The patient does have a history of diabetes and is currently on insulin. The patient denies any known trauma to left lower extremity. Symptoms are moderate without any alleviating or exacerbating factors. PFSH Past Medical History Hx Anticoagulant Therapy: Yes Anxiety: Yes Depression: Yes Cardiac Catheterization: Yes Cardiovascular Problems: Yes High Cholesterol: Yes Chest Pain: Yes Coronary Artery Disease: Yes (TRIPLE BYPASS) Diabetes: Yes Patient Takes Glucophage: Yes (not for 4 days) Diminished Hearing: No GERD: Yes Genitourinary: Yes (IBS) Headaches: Yes (Migraines) Hypertension: Yes Musculoskeletal: Yes ( CHRONIC BACK PROBLEMS) Neurologic: Yes (Neuropathy) Integumentary: Yes (cellulitis) Immunizations Current: Yes Migraines: Yes Myocardial Infarction: Yes Renal Failure: Yes Tetanus Vaccination: > 5 Years Influenza Vaccination: Yes Past Surgical History Body Medical Devices: Implanted spinal cord stimulator Coronary Artery Bypass Graft: Yes (2002) Other Surgery: Yes (Spinal cord stimulator, removed) Social History Alcohol Use: No Tobacco Use: Yes (04/30) Substance Use: No Allergies-Medications (Allergen,Severity, Reaction): Coded Allergies: atorvastatin (Unverified Allergy, Mild, Pt denies allergy- states he currently takes this medication, 01/12/17) Pt denies allergy- states he currently takes this medication 03/08/15 morphine (Unverified Adverse Reaction, Mild, vomiting, 01/12/17) Reported Meds & Prescriptions Reported Meds & Active Scripts Active Bactrim DS (Sulfamethoxazole-Trimethoprim) 800-160 Mg Tab 1 Tab PO BID Keflex (Cephalexin) 500 Mg Capsule 500 Mg PO QID 7 Days Proair Hfa 8.5 GM Inh (Albuterol Sulfate) 90 Mcg/Act Aer 1 Puff INH Q4H PRN 108 mcg/actuation Glipizide 5 Mg Tab 5 Mg PO BIDAC Take 30 minutes before a meal Sumatriptan (Sumatriptan Succinate) 100 Mg Tab 100 Mg PO ONCE PRN If a satisfactory response has not been obtained at 2 hours, a second dose may be administered Metoprolol Succinate ER 24 HR (Metoprolol Succinate) 25 Mg Tab 12.5 Mg PO DAILY Potassium Chloride Microencaps 10 Meq Tab 10 Meq PO DAILY Reported Percocet (Oxycodone-Acetaminophen) 10-325 mg Tab 1 Tab PO Q6H PRN Aspirin 81 Mg Chew 81 Mg CHEW DAILY Lantus Inj (Insulin Glargine) 1,000 Unit/10 Ml Vial 45 Units SQ DAILY Nitrostat SL (Nitroglycerin) 0.4 Mg Subl 0.4 Mg SL DIRECTED PRN 1 tablet under the tongue as needed for chest pain. Repeat every 5 minutes for a total of 3 DOSES or call 911 if NO relief. Atorvastatin (Atorvastatin Calcium) 40 Mg Tab 40 Mg PO HS Ranitidine (Ranitidine HCl) 150 Mg Cap 150 Mg PO BID Lyrica (Pregabalin) 100 Mg Cap 150 Mg PO BID Pantoprazole (Pantoprazole Sodium) 40 Mg Tab 40 Mg PO BID Isosorbide Mononitrate ER (Isosorbide Mononitrate) 120 Mg Cat 120 Mg PO DAILY Gabapentin 300 Mg Cap 400 Mg PO TID Review of Systems Except as stated in HPI: all other systems reviewed are Neg General / Constitutional: No: Fever Cardiovascular: No: Chest Pain or Discomfort Respiratory: No: Shortness of Breath Gastrointestinal: Positive: Loss of Appetite, No: Nausea, Vomiting, Abdominal Pain Musculoskeletal: Positive: Weakness, Edema, Pain Neurologic: Positive: Weakness Physical Exam Narrative GENERAL: Awake, alert, pleasant 51-year-old male who appears his stated age and is in no acute respiratory distress. SKIN: Focused skin assessment warm/dry. HEAD: Atraumatic. Normocephalic. EYES: Pupils equal and round. No scleral icterus. No injection or drainage. ENT: No nasal bleeding or discharge. Mucous membranes pink and moist. NECK: Trachea midline. No JVD. CARDIOVASCULAR: Regular, tachycardic with a heart rate of 100, well-healed midline surgical scar. RESPIRATORY: No accessory muscle use. Clear to auscultation. Breath sounds equal bilaterally. GASTROINTESTINAL: Abdomen soft, non-tender, nondistended. No rebound tenderness. MUSCULOSKELETAL: The left lower extremity reveals erythema from the knee inferiorly to the ankle. It is circumferential. Positive dorsalis pedal pulse. Previous vein harvesting scar noted on the left lower extremity. Neurologic: A and O 4. Follows commands without difficulty. Sensation is intact on the left lower extremity. PSYCHIATRIC: Appropriate mood and affect; insight and judgment normal. Data Data Last Documented VS Vital Signs Date Time Temp Pulse Resp B/P (MAP) Pulse Ox O2 Delivery O2 Flow Rate FiO2 01/12/17 10:35 97.9 102 16 128/74 (92) 97 Orders Orders Electrocardiogram (01/12/17 10:50) Complete Blood Count With Diff (01/12/17 10:50) Comprehensive Metabolic Panel (01/12/17 10:50) Lactic Acid Sepsis Protocol (01/12/17 10:50) Urinalysis - C+S If Indicated (01/12/17 10:50) Blood Culture (01/12/17 10:50) Blood Glucose (01/12/17 10:50) Ecg Monitoring (01/12/17 10:50) Iv Access Insert/Monitor (01/12/17 10:50) Oximetry (01/12/17 10:50) Oxygen Administration (01/12/17 10:50) Acetaminophen (Tylenol) (01/12/17 11:00) Hydromorphone Pf Inj (Dilaudid Pf Inj) (01/12/17 11:00) Ondansetron Inj (Zofran Inj) (01/12/17 11:00) Sodium Chlor 0.9% 1000 Ml Inj (Ns 1000 M (01/12/17 10:50) Sodium Chlor 0.9% 1000 Ml Inj (Ns 1000 M (01/12/17 10:50) Sodium Chlor 0.9% 1000 Ml Inj (Ns 1000 M (01/12/17 10:50) Vancomycin Inj (Vancomycin Inj) (01/12/17 11:00) Piperacil-Tazo 4.5 Gm Premix (Zosyn 4.5 (01/12/17 11:00) Admit Order (Ed Use Only) (01/12/17 11:07) Labs Laboratory Tests Test 01/12/17 10:38 01/12/17 11:03 White Blood Count 13.8 TH/MM3 Red Blood Count 5.59 MIL/MM3 Hemoglobin 15.1 GM/DL Hematocrit 45.0 % Mean Corpuscular Volume 80.5 FL Mean Corpuscular Hemoglobin 27.1 PG Mean Corpuscular Hemoglobin Concent 33.6 % Red Cell Distribution Width 13.6 % Platelet Count 199 TH/MM3 Mean Platelet Volume 9.3 FL Neutrophils (%) (Auto) 87.2 % Lymphocytes (%) (Auto) 5.5 % Monocytes (%) (Auto) 3.9 % Eosinophils (%) (Auto) 2.4 % Basophils (%) (Auto) 1.0 % Neutrophils # (Auto) 12.1 TH/MM3 Lymphocytes # (Auto) 0.8 TH/MM3 Monocytes # (Auto) 0.5 TH/MM3 Eosinophils # (Auto) 0.3 TH/MM3 Basophils # (Auto) 0.1 TH/MM3 CBC Comment DIFF FINAL Differential Comment Blood Urea Nitrogen 26 MG/DL Creatinine 1.20 MG/DL Random Glucose 311 MG/DL Total Protein 8.0 GM/DL Albumin 3.0 GM/DL Calcium Level 9.5 MG/DL Alkaline Phosphatase 111 U/L Aspartate Amino Transf (AST/SGOT) 19 U/L Alanine Aminotransferase (ALT/SGPT) 26 U/L Total Bilirubin 0.8 MG/DL Sodium Level 129 MEQ/L Potassium Level 4.2 MEQ/L Chloride Level 94 MEQ/L Carbon Dioxide Level 21.6 MEQ/L Anion Gap 13 MEQ/L Estimat Glomerular Filtration Rate 64 ML/MIN Lactic Acid Level 1.6 mmol/L MDM Medical Decision Making Medical Screen Exam Complete: Yes Emergency Medical Condition: Yes Medical Record Reviewed: Yes Interpretation(s) EKG reveals normal sinus rhythm with a rate 84. RSR prime in V1 with QRS of 114 ms consistent with incomplete right bundle branch block. Nonspecific T wave changes. Differential Diagnosis Differential diagnosis includes cellulitis, sepsis, bacteremia, septicemia, infected wound, diabetes, dehydration. Narrative Course IV was established, labs are drawn and sent, and the patient was placed on cardiac telemetry monitoring and continuous pulse oximetry monitoring. EKG was ordered and interpreted. I reviewed the EMR from the patient's visit yesterday , 3-4 blood cultures are growing gram-positive cocci, the fourth one is currently pending. The patient's white count at that time was 15.6, lactic acid was normal at 1.6. With a white count greater than 15 and tachycardia the patient meets sepsis criteria. Therefore, repeat blood culture and lactic gas were sent to lab. 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 A call was placed to the on-call medical service for admission. The patient's primary physician is Dr. Asiya Cerna. Sepsis Criteria SIRS Criteria (2 or more): Heart rate over 90, WBC > 14108, < 4000 or > 10% bands Sepsis Criteria (SIRS+source): Infect source susp/known Criteria Outcome: Meets sepsis criteria Physician Communication Physician Communication [facility] were paged for admission. I discussed the patient with Dr. Tarango who agrees with admission. Diagnosis Primary Impression: Sepsis affecting skin Additional Impression: Cellulitis of left leg Condition: Stable Chacho Wiseman MD Jan 12, 2017 11:01
[2017-01-12 11:14] LABS: AUTOMATED NEUTROPHIL # 12.1 TH/MM3 (1.8-7.7); BASOPHIL # 0.1 TH/MM3 (0-0.2); EOSINOPHIL # 0.3 TH/MM3 (0-0.4); EOSINOPHIL % 2.4 % (0.0-4.0); LYMPH % 5.5 % (9.0-44.0); LYMPHOCYTE # 0.8 TH/MM3 (1.0-4.8); MEAN CELL VOLUME 80.5 FL (80.0-100.0); MEAN CORPUSCULAR HEMOGLOBIN 27.1 PG (27.0-34.0); MEAN CORPUSCULAR HGB CONC 33.6 % (32.0-36.0); MONO % 3.9 % (0.0-8.0); NEUT % 87.2 % (16.0-70.0); PLATELET COUNT 199 TH/MM3 (150-450); RED BLOOD COUNT 5.59 MIL/MM3 (4.50-5.90); RED CELL DISTRIBUTION WIDTH 13.6 % (11.6-17.2); WHITE BLOOD COUNT 13.8 TH/MM3 (4.0-11.0)
[2017-01-12 11:15] LABS: HEMO FLAGS DIFF FINAL
[2017-01-12 11:21] VITALS: O2SAT 97
[2017-01-12 11:24] LABS: CHLORIDE 94 MEQ/L (98-107); POTASSIUM 4.2 MEQ/L (3.5-5.1); SODIUM (NA) 129 MEQ/L (136-145)
[2017-01-12 11:27] LABS: ANION GAP 13 MEQ/L (5-15); BICARBONATE 21.6 MEQ/L (21.0-32.0)
[2017-01-12 11:37] LABS: ALKALINE PHOSPHATASE 111 U/L (45-117); ALT (GPT) 26 U/L (12-78); AST (GOT) 19 U/L (15-37); BLOOD UREA NITROGEN 26 MG/DL (7-18); GLOMERULAR FILTRATION RATE 64 ML/MIN (>89); TOTAL BILIRUBIN ADULT 0.8 MG/DL (0.2-1.0)
[2017-01-12 11:48] LABS: BLOOD, URINE NEG (NEG); GLUCOSE,URINE 1000 OR GREATER mg/dL (NEG); KETONE, URINE 40 mg/dL (NEG); NITRITE,URINE NEG (NEG)
[2017-01-12 11:49] LABS: METHOD OF COLLECTION CATH; URINE COLOR YELLOW (YELLW/STRAW)
[2017-01-12 11:53] LABS: COMMENT (UR) CULT NOT INDICATED; CULTURE IF INDICATED CULT NOT INDICATED; SQUAMOUS EPITHELIAL CELL URINE 0-5 /hpf (0-5)
[2017-01-12 12:02] VITALS: BP 122/65; PULSE 78; RESP 18; TEMP 98.2; O2SAT 97
[2017-01-12 12:15] VITALS: BP 118/81; PULSE 84; RESP 20; TEMP 96.8; O2SAT 98
[2017-01-12] MEDS ORDERED: GLUCAGON 1 MG/ML VIAL OTHER PRN (14:15)
[2017-01-12] MEDS ORDERED: ONDANSETRON HCL 4 MG/2 ML VIAL IVP PRN (14:15)
[2017-01-12] MEDS ORDERED: SODIUM CHLORIDE 0.9% FLUSH 10 ML FLUSH IV FLUSH PRN (14:15)
[2017-01-12] MEDS ORDERED: DEXTROSE 50% IN WATER 50 ML VIAL(D50) IV PRN (14:15)
[2017-01-12] MEDS ORDERED: NALOXONE HCL 0.4 MG/ML AMP IV PUSH PRN (14:15)
[2017-01-12] MEDS ORDERED: LACTULOSE SYRUP 20 GM/30 ML CUP PO PRN (14:15)
[2017-01-12] MEDS ORDERED: MAGNESIUM HYDROXIDE SUSP 30 ML CUP PO PRN (14:15)
[2017-01-12] MEDS ORDERED: BISACODYL 10 MG SUPP RECTAL PRN (14:15)
[2017-01-12] MEDS ORDERED: ACETAMINOPHEN/HYDROcodone 325 MG/5 MG TAB PO PRN (14:15)
[2017-01-12] MEDS ORDERED: SENNOSIDES 8.6 MG TAB PO PRN (14:15)
[2017-01-12] MEDS ORDERED: VANCOMYCIN TROUGH ONE (15:00)
[2017-01-12] MEDS ORDERED: Vancomycin Consult Pharmacy 1 EA OTHER SCH (15:00)
[2017-01-12] MEDS: SODIUM CHLOR 0.9% 1000 ML INJ 1,000 ML IV SCH (15:01)
[2017-01-12 15:54] VITALS: BP 124/79; PULSE 83; RESP 20; TEMP 96; O2SAT 95
[2017-01-12] MEDS: ENOXAPARIN SODIUM 40 MG/0.4 ML SYRINGE SQ SCH (16:18)
[2017-01-12] MEDS: INSULIN ASPART SUPPLEMENTAL SCALE SQ SCH ×2 (16:43→20:37)
--- NOTE | 2017-01-12 17:32 | HHI.HP ---
HPI Service [facility] Primary Care Physician Asiya Cerna MD Admission Diagnosis sepsis, cellulitis left lower extremity Diagnoses: (1) Sepsis Diagnosis: Principal (2) Bacteremia Diagnosis: Principal (3) Cellulitis of left leg Diagnosis: Principal (4) Wound, open, finger Diagnosis: Principal Chief Complaint: Patient called to come in because of positive blood cultures Travel History International Travel<30 Days: No Contact w/Intl Traveler <30 Da: No Traveled to Known Affected Are: No History of Present Illness Written by Robert Quick, acting as scribe for Dr. Tarango on on 01/12/17 at 17:24. 51-year-old male with known history of hypertension, hyperlipidemia, coronary artery disease, diabetes, gastroesophageal reflux, chronic kidney disease stage II, chronic back pain who presented to the hospital at the request of the ER because of positive blood cultures. Patient indicates that 4 days ago he started developing some erythema and pain in his left lower extremity as well as a blister type wound on his finger in which he states that he accidentally hit his head board while he was asleep. It progressively got worse so he came to the hospital yesterday. Patient was evaluated in emergency department and was recommended by the ER physician that the patient be admitted for further evaluation management, however the patient wanted outpatient treatment and was discharged home on Bactrim and Keflex. Patient had blood cultures drawn at that time and has subsequently became positive with 3/4 blood cultures with gram-positive cocci. Wound culture of the finger does indicate a beta strep. Patient came back into the hospital at the request of the ER and was admitted for IV antibiotics and further evaluation and management. Review of Systems Musculoskeletal: COMPLAINS OF: Muscle aches Except as stated in HPI: all other systems reviewed are Neg Past Family Social History Past Medical History Hypertension Hyperlipidemia Coronary artery disease Anxiety/depression Diabetes Gastroesophageal reflux Chronic back pain Migraine cephalgia Peripheral neuropathy Chronic kidney disease stage II Past Surgical History Coronary bypass surgery Spinal stimulator insertion and removal Reported Medications Reported Meds & Active Scripts Active Bactrim DS (Sulfamethoxazole-Trimethoprim) 800-160 Mg Tab 1 Tab PO BID Keflex (Cephalexin) 500 Mg Capsule 500 Mg PO QID 7 Days Proair Hfa 8.5 GM Inh (Albuterol Sulfate) 90 Mcg/Act Aer 1 Puff INH Q4H PRN 108 mcg/actuation Glipizide 5 Mg Tab 5 Mg PO BIDAC Take 30 minutes before a meal Sumatriptan (Sumatriptan Succinate) 100 Mg Tab 100 Mg PO ONCE PRN If a satisfactory response has not been obtained at 2 hours, a second dose may be administered Metoprolol Succinate ER 24 HR (Metoprolol Succinate) 25 Mg Tab 12.5 Mg PO DAILY Potassium Chloride Microencaps 10 Meq Tab 10 Meq PO DAILY Reported Percocet (Oxycodone-Acetaminophen) 10-325 mg Tab 1 Tab PO Q6H PRN Aspirin 81 Mg Chew 81 Mg CHEW DAILY Lantus Inj (Insulin Glargine) 1,000 Unit/10 Ml Vial 45 Units SQ DAILY Nitrostat SL (Nitroglycerin) 0.4 Mg Subl 0.4 Mg SL DIRECTED PRN 1 tablet under the tongue as needed for chest pain. Repeat every 5 minutes for a total of 3 DOSES or call 911 if NO relief. Atorvastatin (Atorvastatin Calcium) 40 Mg Tab 40 Mg PO HS Ranitidine (Ranitidine HCl) 150 Mg Cap 150 Mg PO BID Lyrica (Pregabalin) 100 Mg Cap 150 Mg PO BID Pantoprazole (Pantoprazole Sodium) 40 Mg Tab 40 Mg PO BID Isosorbide Mononitrate ER (Isosorbide Mononitrate) 120 Mg Cat 120 Mg PO DAILY Gabapentin 300 Mg Cap 400 Mg PO TID Allergies: Coded Allergies: atorvastatin (Unverified Allergy, Mild, Pt denies allergy- states he currently takes this medication, 01/12/17) Pt denies allergy- states he currently takes this medication 03/08/15 morphine (Unverified Adverse Reaction, Mild, vomiting, 01/12/17) Family History Reviewed is significant for mother at age 70 from renal failure, heart disease, father at age 55 from not getting attention to his medical conditions Social History Patient continues to smoke one half pack a cigarettes a day since he was 15 years old. Patient denies any alcohol or illicit drugs Physical Exam Vital Signs Vital Signs Date Time Temp Pulse Resp B/P (MAP) Pulse Ox O2 Delivery O2 Flow Rate FiO2 01/12/17 15:54 96.0 83 20 124/79 (94) 95 01/12/17 12:25 01/12/17 12:15 96.8 84 20 118/81 (93) 98 01/12/17 12:02 98.2 78 18 122/65 (84) 97 Room Air 01/12/17 11:21 97 Room Air 01/12/17 11:21 97 Room Air 01/12/17 10:35 97.9 102 16 128/74 (92) 97 Physical Exam GENERAL: Well-developed, well-nourished, in no acute distress. alert and orientated HEENT: Head is normocephalic without any lesions or masses noted. Facial features are symmetric. Eyes: Pupils equal round reactive to light. Extraocular muscles are intact. Conjunctivae were clear. Oropharyngeal: Pharynx without any erythema edema. Tongue is midline without deviation. Buccal mucosa is moist without any masses or lesions NECK: Supple without any masses. Trachea midline no deviation. No JVD, no bruits are appreciated CARDIAC: Regular rhythm, regular rate. S1/S2 are heard. No murmurs gallops or rubs. LUNGS: Clear to auscultation bilaterally. No wheeze, rhonchi or rales. No use of accessory muscles on inspiration or expiration. ABDOMEN: Soft, nontender. Nondistended. Bowel sounds heard in all 4 quadrants. No organomegaly or masses. Negative rebound, negative guarding EXTREMITIES: No edema, pulses are equal bilaterally. No cyanosis or clubbing NEUROLOGY: Mood and affect appear appropriate. Cranial nerves II through XII grossly intact. Muscle strength 5/5 in upper and lower extremities bilaterally. Deep tendon reflexes are 2+ in upper and lower extremities bilaterally. LEFT LOWER EXTREMITY: Patient does have significant cellulitis marked from just distal to the patella down to his ankle with circumferential erythema. Worsening darker cellulitis noted on the lateral aspect of his mid tibia, patient does have vein harvesting scar noted on the medial aspect of his lower extremity. BRIGHT HAND: Patient second digit does have a blister type wound noted that encompasses the entire area from the metacarpal joint to the proximal interphalangeal joint Laboratory Laboratory Tests Test 01/12/17 10:38 01/12/17 11:03 01/12/17 11:30 White Blood Count 13.8 Red Blood Count 5.59 Hemoglobin 15.1 Hematocrit 45.0 Mean Corpuscular Volume 80.5 Mean Corpuscular Hemoglobin 27.1 Mean Corpuscular Hemoglobin Concent 33.6 Red Cell Distribution Width 13.6 Platelet Count 199 Mean Platelet Volume 9.3 Neutrophils (%) (Auto) 87.2 Lymphocytes (%) (Auto) 5.5 Monocytes (%) (Auto) 3.9 Eosinophils (%) (Auto) 2.4 Basophils (%) (Auto) 1.0 Neutrophils # (Auto) 12.1 Lymphocytes # (Auto) 0.8 Monocytes # (Auto) 0.5 Eosinophils # (Auto) 0.3 Basophils # (Auto) 0.1 CBC Comment DIFF FINAL Differential Comment Blood Urea Nitrogen 26 Creatinine 1.20 Random Glucose 311 Total Protein 8.0 Albumin 3.0 Calcium Level 9.5 Alkaline Phosphatase 111 Aspartate Amino Transf (AST/SGOT) 19 Alanine Aminotransferase (ALT/SGPT) 26 Total Bilirubin 0.8 Sodium Level 129 Potassium Level 4.2 Chloride Level 94 Carbon Dioxide Level 21.6 Anion Gap 13 Estimat Glomerular Filtration Rate 64 Lactic Acid Level 1.6 Urine Collection Type CATH Urine Color YELLOW Urine Turbidity CLEAR Urine pH 6.0 Urine Specific [place] 1.030 Urine Protein NEG Urine Glucose (UA) 1000 OR GREATER Urine Ketones 40 Urine Occult Blood NEG Urine Nitrite NEG Urine Bilirubin NEG Urine Leukocyte Esterase NEG Urine Squamous Epithelial Cells 0-5 Microscopic Urinalysis Comment CULT NOT INDICATED Date/Time Source Procedure Growth Status 01/12/17 11:03 Blood Peripheral Aerobic Blood Culture Pending Received 01/12/17 11:03 Blood Peripheral Anaerobic Blood Culture Pending Received 01/12/17 11:30 Wound Finger Gram Stain Pending Received 01/12/17 11:30 Wound Finger Wound Culture Pending Received Result Diagram: 01/12/17 1038 01/12/17 1038 Septic Shock Reassessment Heart: Regular rate and rhythm Lungs: Clear Skin: Warm, [place] Peripheral Pulses: Bounding Right Radial Bounding Left Radial Capillary Refill: Brisk, <2 seconds Caprini VTE Risk Assessment Caprini VTE Risk Assessment: Mod/High Risk (score >= 2) Caprini Risk Assessment Model Point Value = 1 Point Value = 2 Point Value = 3 Point Value = 5 Age 41-60 Minor surgery BMI > 25 kg/m2 Swollen legs Varicose veins or History of unexplained or recurrent spontaneous Oral contraceptives or hormone replacement Sepsis (< 1 month) Serious lung disease, including pneumonia (< 1 month) Abnormal pulmonary function Acute myocardial infarction Congestive heart failure (< 1 month) History of inflammatory bowel disease Medical patient at bed rest Age 61-74 Arthroscopic surgery Major open surgery (> 45 min) Laparoscopic surgery (> 45 min) Malignancy Confined to bed (> 72 hours) Immobilizing plaster cast Central venous access Age >= 75 History of VTE Family history of VTE Factor V Leiden Prothrombin [id number] Lupus anticoagulant Anticardiolipin antibodies Elevated serum homocysteine Heparin-induced thrombocytopenia Other congenital or acquired thrombophilia Stroke (< 1 month) Elective arthroplasty Hip, pelvis, or leg fracture Acute spinal cord injury (< 1 month) Prophylaxis Regimen Total Risk Factor Score Risk Level Prophylaxis Regimen 0-1 Low Early ambulation 2 Moderate Order ONE of the following: *Sequential Compression Device (SCD) *Heparin 5000 units SQ BID 3-4 Higher Order ONE of the following medications: *Heparin 5000 units SQ TID *Enoxaparin/Lovenox 40 mg SQ daily (WT < 150 kg, CrCl > 30 mL/min) *Enoxaparin/Lovenox 30 mg SQ daily (WT < 150 kg, CrCl > 10-29 mL/min) *Enoxaparin/Lovenox 30 mg SQ BID (WT < 150 kg, CrCl > 30 mL/min) AND/OR *Sequential Compression Device (SCD) 5 or more Highest Order ONE of the following medications: *Heparin 5000 units SQ TID (Preferred with Epidurals) *Enoxaparin/Lovenox 40 mg SQ daily (WT < 150 kg, CrCl > 30 mL/min) *Enoxaparin/Lovenox 30 mg SQ daily (WT < 150 kg, CrCl > 10-29 mL/min) *Enoxaparin/Lovenox 30 mg SQ BID (WT < 150 kg, CrCl > 30 mL/min) AND *Sequential Compression Device (SCD) Assessment and Plan Assessment and Plan Sepsis Patient with leukocytosis, tachycardia, positive blood cultures, cellulitis of the lower extremity and finger Patient made with vancomycin and Zosyn Initial blood cultures show 3/4 positive blood cultures with gram-positive cocci Repeat blood cultures have been ascertained Continue to follow finger culture Continue pain control Diabetes Accu-Cheks with sliding scale insulin Hypertension, hyperlipidemia, coronary disease Continue home medications Right index finger wound - no sign of infection, continue dressing changes daily DVT prevention Subcutaneous Lovenox Discussed Condition With This note was transcribed by scribe. I, Dr. Smitha Tarango personally performed the history, physical exam, and medical decision making; and confirmed the accuracy of the information in the transcribed note. Physician Certification 2 Midnight Certification Type: Admission for Inpatient Services Order for Inpatient Services The services are ordered in accordance with Medicare regulations or non- Medicare payer requirements, as applicable. In the case of services not specified as inpatient-only, they are appropriately provided as inpatient services in accordance with the 2-midnight benchmark. Estimated LOS (days): 2 days is the estimated time the patient will need to remain in the hospital, assuming treatment plan goals are met and no additional complications. Post-Hospital Plan: Not yet determined Robert Quick Jan 12, 2017 17:32 Smitha Tarango MD Jan 12, 2017 17:35
[2017-01-12] MEDS ORDERED: PILL SPLITTER OTHER PRN (18:00)
[2017-01-12] MEDS: PIPERACIL-TAZO 3.375 GM PREMIX 50 ML IV SCH ×2 (18:11→22:43)
[2017-01-12] MEDS: GABAPENTIN 400 MG CAP PO SCH (18:11)
[2017-01-12] MEDS: PANTOPRAZOLE SOD 40 MG DELAYED RELEASE TAB PO SCH (20:33)
[2017-01-12] MEDS: PREGABALIN 75 MG CAP PO SCH (20:33)
[2017-01-12] MEDS: DOCUSATE SODIUM 50 MG/SENNA 8.6 MG TAB PO SCH (20:33)
[2017-01-12] MEDS: ATORVASTATIN 40 MG TAB PO SCH (20:33)
[2017-01-12] MEDS: SODIUM CHLORIDE 0.9% FLUSH 10 ML FLUSH IV FLUSH SCH (20:35)
[2017-01-12 21:27] VITALS: BP 159/72; PULSE 86; RESP 20; TEMP 98.8; O2SAT 94
[2017-01-12] MEDS ORDERED: HYDROmorphone HCL PF 1 MG/ML VIAL IV PUSH ONE (21:45)
[2017-01-12] MEDS: VANCOMYCIN INJ 1,400 MG in SODIUM CHLORID 0.9% 500 ML INJ 500 ML IV SCH (23:44)
[2017-01-13] MEDS: SODIUM CHLOR 0.9% 1000 ML INJ 1,000 ML IV SCH ×2 (00:12→08:14)
[2017-01-13 01:15] VITALS: BP 140/68; PULSE 80; RESP 16; TEMP 98; O2SAT 95
[2017-01-13] MEDS: ISOSORBIDE MONONITRATE 60 MG TAB PO SCH (05:57)
[2017-01-13] MEDS: PIPERACIL-TAZO 3.375 GM PREMIX 50 ML IV SCH ×4 (05:57→23:15)
[2017-01-13 07:17] LABS: AUTOMATED NEUTROPHIL # 5.2 TH/MM3 (1.8-7.7); BASOPHIL # 0.2 TH/MM3 (0-0.2); BASOPHIL % 2.4 % (0.0-2.0); EOSINOPHIL # 0.7 TH/MM3 (0-0.4); EOSINOPHIL % 8.3 % (0.0-4.0); HEMATOCRIT 41.9 % (39.0-51.0); HEMO FLAGS DIFF FINAL; LYMPH % 15.3 % (9.0-44.0); LYMPHOCYTE # 1.2 TH/MM3 (1.0-4.8); MEAN CELL VOLUME 81.4 FL (80.0-100.0); MEAN CORPUSCULAR HEMOGLOBIN 26.8 PG (27.0-34.0); MEAN CORPUSCULAR HGB CONC 32.9 % (32.0-36.0); MONO % 8.1 % (0.0-8.0); NEUT % 65.9 % (16.0-70.0); PLATELET COUNT 180 TH/MM3 (150-450); RED BLOOD COUNT 5.15 MIL/MM3 (4.50-5.90); RED CELL DISTRIBUTION WIDTH 13.7 % (11.6-17.2); WHITE BLOOD COUNT 7.9 TH/MM3 (4.0-11.0)
[2017-01-13 07:50] LABS: BICARBONATE 24.3 MEQ/L (21.0-32.0); POTASSIUM 3.7 MEQ/L (3.5-5.1)
[2017-01-13 08:00] VITALS: BP 99/63; PULSE 65; RESP 18; TEMP 97.9; O2SAT 95
[2017-01-13] MEDS: INSULIN ASPART SUPPLEMENTAL SCALE SQ SCH ×4 (08:00→21:15)
[2017-01-13] MEDS: GABAPENTIN 400 MG CAP PO SCH ×3 (08:11→17:45)
[2017-01-13] MEDS: POTASSIUM CHLORIDE 10 MEQ CONTROLLED RELEASE TAB PO SCH (08:11)
[2017-01-13] MEDS: PREGABALIN 75 MG CAP PO SCH ×2 (08:11→21:05)
[2017-01-13] MEDS: PANTOPRAZOLE SOD 40 MG DELAYED RELEASE TAB PO SCH ×2 (08:12→21:05)
[2017-01-13] MEDS: ASPIRIN 81 MG CHEW TAB CHEW SCH (08:12)
[2017-01-13] MEDS: METOPROLOL SUCCINATE 25 MG EXTENDED RELEASE TAB PO SCH (08:12)
[2017-01-13] MEDS: DOCUSATE SODIUM 50 MG/SENNA 8.6 MG TAB PO SCH ×3 (08:24→21:05)
[2017-01-13] MEDS: SODIUM CHLORIDE 0.9% FLUSH 10 ML FLUSH IV FLUSH SCH ×2 (08:25→21:06)
[2017-01-13 12:00] VITALS: BP 100/70; PULSE 62; RESP 18; TEMP 97.7; O2SAT 95
--- NOTE | 2017-01-13 13:01 | EKG ---
Date Performed: 01/12/2017 Time Performed: 11:21:02 PTAGE: 51 years EKG: Sinus rhythm LEFT AXIS DEVIATION INCOMPLETE RIGHT BUNDLE BRANCH BLOCK MINIMAL VOLTAGE CRITERIA FOR LVH, CONSIDER NORMAL VARIANT NONSPECIFIC ST & T-WAVE ABNORMALITY ABNORMAL ECG PREVIOUS TRACING : 11/26/2016 18.11 No significant change from previous tracing noted. DOCTOR: Girma Pham Interpretating Date/Time 01/13/2017 13:00:52
--- NOTE | 2017-01-13 13:25 | HHI.PR ---
Subjective Remarks Redness and pain of LLE improved, he has been ambulating. No fevers/ chills. Patient states that he stubbed his middle left toe a week ago. Objective Vitals Vital Signs Date Time Temp Pulse Resp B/P (MAP) Pulse Ox O2 Delivery O2 Flow Rate FiO2 01/13/17 12:00 97.7 62 18 100/70 (80) 95 01/13/17 09:11 18 01/13/17 09:11 18 01/13/17 08:00 97.9 65 18 99/63 (75) 95 01/13/17 05:05 01/13/17 01:15 98.0 80 16 140/68 (92) 95 01/12/17 21:27 98.8 86 20 159/72 (101) 94 01/12/17 15:54 96.0 83 20 124/79 (94) 95 I/O 01/12/17 01/12/17 01/12/17 01/13/17 01/13/17 01/13/17 07:00 15:00 23:00 07:00 15:00 23:00 Intake Total 4150 ml 220 ml 1000 ml Output Total 600 ml 750 ml Balance 4150 ml -380 ml -750 ml 1000 ml Intake IV Total 4150 ml 220 ml 1000 ml Output Urine Total 600 ml 750 ml # Bowel Movements 0 Result Diagram: 01/13/17 0647 01/13/17 0647 Objective Remarks GENERAL: Well-developed, well-nourished, in no acute distress. alert and orientated HEENT: Head is normocephalic without any lesions or masses noted. Facial features are symmetric. Eyes: Pupils equal round reactive to light. Extraocular muscles are intact. Conjunctivae were clear. Oropharyngeal: Pharynx without any erythema edema. Tongue is midline without deviation. Buccal mucosa is moist without any masses or lesions NECK: Supple without any masses. Trachea midline no deviation. No JVD, no bruits are appreciated CARDIAC: Regular rhythm, regular rate. S1/S2 are heard. No murmurs gallops or rubs. LUNGS: Clear to auscultation bilaterally. No wheeze, rhonchi or rales. No use of accessory muscles on inspiration or expiration. ABDOMEN: Soft, nontender. Nondistended. Bowel sounds heard in all 4 quadrants. No organomegaly or masses. Negative rebound, negative guarding LEFT LOWER EXTREMITY: improving cellulitis/erythema of LLE much receded from pen markings. middle toe has small wound on posterior metatarsal phalangeal joint with scant yellow drainage. RIGHT HAND: Patient second digit does have a blister type wound noted that encompasses the entire area from the metacarpal joint to the proximal interphalangeal joint A/P Problem List: (1) Sepsis ICD Code: A41.9 - Sepsis, unspecified organism (2) Bacteremia ICD Code: R78.81 - Bacteremia (3) Cellulitis of left leg ICD Code: L03.116 - Cellulitis of left lower limb Status: Acute (4) Wound, open, finger ICD Code: S61.209A - Unspecified open wound of unspecified finger without damage to nail, initial encounter Assessment and Plan Sepsis/cellulitis Patient with leukocytosis, tachycardia, positive blood cultures group A beta strep, cellulitis of the lower extremity and finger cont vancomycin and Zosyn Repeat blood cultures have been ascertained infectious disease consult -Right index finger wound - no evidence of infection, cont dressing changes daily. -Diabetes type 2 Accu-Cheks with sliding scale insulin -Small wound posterior right third toe - check xray r/o foreign body, monitor site, consult podiatry if worsens Hypertension, hyperlipidemia, coronary disease Continue home medications Right index finger wound - no sign of infection, continue dressing changes daily DVT prevention Subcutaneous Lovenox Smitha Tarango MD Jan 13, 2017 13:25
[2017-01-13] MEDS ORDERED: TETANUS/DIPHTHERIA TOXOID ADULT 0.5 ML VIAL IM ONE (14:00)
--- NOTE | 2017-01-13 14:52 | RADRPT ---
EXAM DATE/TIME: 01/13/2017 14:22 [facility] COMPARISON: FOOT RIGHT COMPLETE ([id number]), October 06, 2014, 11:46. INDICATIONS : Cellulitis left lower leg, has wound from plywood to base 3rd toe MEDICAL HISTORY : Renal failure, chronic. Diabetes mellitus type II. Cardiovascular disease. SURGICAL HISTORY : CABG. ENCOUNTER: Subsequent ACUITY: 1 week PAIN SCORE: 0/10 LOCATION: Left foot FINDINGS: There is a slightly expansile somewhat ill-defined lytic lesion involving the distal third metatarsal with central increased density. No significant associated periosteal reaction. The osseous structure s are otherwise intact. There is soft tissue prominence overlying the plantar forefoot. CONCLUSION: Slightly expansile somewhat ill-defined lytic lesion involving the distal third metatarsal, as above. This may reflect a small Saravanan's abscess in the appropriate clinical setting. Further evaluation ma y be performed with MRI exam as clinically warranted. Hay Tierney MD on January 13, 2017 at 14:46 Board Certified Radiologist. This report was verified electronically.
[2017-01-13 16:00] VITALS: BP 103/67; PULSE 74; RESP 18; TEMP 97.9; O2SAT 95
[2017-01-13] MEDS: ENOXAPARIN SODIUM 40 MG/0.4 ML SYRINGE SQ SCH (16:19)
[2017-01-13] MEDS: VANCOMYCIN INJ 1,400 MG in SODIUM CHLORID 0.9% 500 ML INJ 500 ML IV SCH (16:46)
[2017-01-13 20:00] VITALS: BP 105/69; PULSE 75; RESP 16; TEMP 98; O2SAT 97
[2017-01-13] MEDS: ATORVASTATIN 40 MG TAB PO SCH (21:05)
[2017-01-13] MEDS: HYDROmorphone HCL PF 1 MG/ML VIAL IV PUSH PRN (21:09)
[2017-01-14] VITALS: BP 100/64; PULSE 74; RESP 16; TEMP 98.6; O2SAT 98
[2017-01-14] MEDS: ISOSORBIDE MONONITRATE 60 MG TAB PO SCH (05:59)
[2017-01-14] MEDS: PIPERACIL-TAZO 3.375 GM PREMIX 50 ML IV SCH ×4 (05:59→23:18)
[2017-01-14 08:00] VITALS: BP_SYST 104; BP_SYST 106; BP_DIAS 76; BP_DIAS 77; PULSE 76; PULSE 88; RESP 18; TEMP 96.9; TEMP 98.1; O2SAT 95; O2SAT 97
[2017-01-14] MEDS: INSULIN ASPART SUPPLEMENTAL SCALE SQ SCH ×4 (08:28→21:04)
[2017-01-14] MEDS: GABAPENTIN 400 MG CAP PO SCH ×3 (08:29→17:23)
[2017-01-14] MEDS: PREGABALIN 75 MG CAP PO SCH ×2 (08:29→20:48)
[2017-01-14] MEDS: SODIUM CHLORIDE 0.9% FLUSH 10 ML FLUSH IV FLUSH SCH ×2 (08:30→20:48)
[2017-01-14] MEDS: PANTOPRAZOLE SOD 40 MG DELAYED RELEASE TAB PO SCH ×2 (08:30→20:47)
[2017-01-14] MEDS: METOPROLOL SUCCINATE 25 MG EXTENDED RELEASE TAB PO SCH (08:30)
[2017-01-14] MEDS: ASPIRIN 81 MG CHEW TAB CHEW SCH (08:30)
[2017-01-14] MEDS: HYDROmorphone HCL PF 1 MG/ML VIAL IV PUSH PRN ×3 (08:31→23:20)
[2017-01-14] MEDS: DOCUSATE SODIUM 50 MG/SENNA 8.6 MG TAB PO SCH ×2 (08:31→20:48)
[2017-01-14] MEDS: POTASSIUM CHLORIDE 10 MEQ CONTROLLED RELEASE TAB PO SCH (08:32)
--- NOTE | 2017-01-14 11:21 | PD.ID.CON ---
History of Present Illness Service ID Consult Requested By Dr. Sandhu Reason for Consult Evaluation and management of strep bacteremia as well as left lower extremity cellulitis. Primary Care Physician Asiya Cerna MD Diagnoses: History of Present Illness is a 51 y/o CM with known h/o hypertension, hyperlipidemia, coronary artery disease, diabetes, gastroesophageal reflux, chronic kidney disease stage II, chronic back pain who presented to the hospital as he received call from ER because of positive blood cultures. Patient indicates that 4 days ago he started developing some erythema and pain in his left lower extremity as well as a blister type wound on his finger in which he states that he accidentally hit his head board while he was asleep. It progressively got worse so he came to the hospital yesterday. Patient was evaluated in emergency department and was recommended by the ER physician that the patient be admitted for further evaluation management, however the patient wanted outpatient treatment and was discharged home on Bactrim and Keflex. Patient had blood cultures drawn at that time and has subsequently became positive with 3/4 blood cultures with gram-positive cocci. Wound culture of the finger does indicate a beta strep. Patient came back into the hospital at the request of the ER and was admitted for IV antibiotics and further evaluation and management. ID consulted for evaluation and M'ment of Strep bacteremia, RLE cellulitis and Review of Systems ROS Limitations: Poor Historian Constitutional: DENIES: Diaphoretic episodes, Fatigue, Fever, Weight gain, Weight loss, Chills, Dizziness, Change in appetite, Night Sweats Endocrine: DENIES: Heat/cold intolerance, Polydipsia, Polyuria, Polyphagia Eyes: DENIES: Blurred vision, Diplopia, Eye inflammation, Eye pain, Vision loss , Photosensitivity, Double Vision Ears, nose, mouth, throat: DENIES: Tinnitus, Hearing loss, Vertigo, Nasal discharge, Oral lesions, Throat pain, Hoarseness, Ear Pain, Running Nose, Epistaxis, Sinus Pain, Toothache, Odynophagia Respiratory: DENIES: Apneas, Cough, Snoring, Wheezing, Hemoptysis, Sputum production, Shortness of breath Cardiovascular: DENIES: Chest pain, Palpitations, Syncope, Dyspnea on Exertion , PND, Lower Extremity Edema, Orthopnea, Claudication Gastrointestinal: DENIES: Abdominal pain, Black stools, Bloody stools, Constipation, Diarrhea, Nausea, Vomiting, Difficulty Swallowing, Anorexia Genitourinary: DENIES: Sexual dysfunction, Urinary frequency, Urinary incontinence, Urgency, Hematuria, Dysuria, Nocturia, Penile Discharge, Testicular Pain, Testicular Swelling Musculoskeletal: COMPLAINS OF: Joint pain, DENIES: Muscle aches, Stiffness, Joint Swelling, Back pain, Neck pain Integumentary: COMPLAINS OF: Abnormal pigmentation, DENIES: Nail changes, Pruritus, Rash Hematologic/lymphatic: DENIES: Bruising, Lymphadenopathy Immunologic/allergic: DENIES: Eczema, Urticaria Neurologic: DENIES: Abnormal gait, Headache, Localized weakness, Paresthesias, Seizures, Speech Problems, Tremor, Poor Balance Psychiatric: DENIES: Anxiety, Confusion, Mood changes, Depression, Hallucinations, Agitation, Suicidal Ideation, Homicidal Ideation, Delusions Except as stated in HPI: all other systems reviewed are Neg Past Family Social History Allergies: Coded Allergies: atorvastatin (Unverified Allergy, Mild, Pt denies allergy- states he currently takes this medication, 01/12/17) Pt denies allergy- states he currently takes this medication 03/08/15 morphine (Unverified Adverse Reaction, Mild, vomiting, 01/12/17) Past Medical History Hypertension Hyperlipidemia Coronary artery disease Anxiety/depression Diabetes Gastroesophageal reflux Chronic back pain Migraine cephalgia Peripheral neuropathy Chronic kidney disease stage II Past Surgical History Coronary bypass surgery Spinal stimulator insertion and removal Reported Medications Reported Meds & Active Scripts Active Proair Hfa 8.5 GM Inh (Albuterol Sulfate) 90 Mcg/Act Aer 1 Puff INH Q4H PRN 108 mcg/actuation Glipizide 5 Mg Tab 5 Mg PO BIDAC Take 30 minutes before a meal Sumatriptan (Sumatriptan Succinate) 100 Mg Tab 100 Mg PO ONCE PRN If a satisfactory response has not been obtained at 2 hours, a second dose may be administered Metoprolol Succinate ER 24 HR (Metoprolol Succinate) 25 Mg Tab 12.5 Mg PO DAILY Potassium Chloride Microencaps 10 Meq Tab 10 Meq PO DAILY Reported Percocet (Oxycodone-Acetaminophen) 10-325 mg Tab 1 Tab PO Q6H PRN Aspirin 81 Mg Chew 81 Mg CHEW DAILY Lantus Inj (Insulin Glargine) 1,000 Unit/10 Ml Vial 45 Units SQ DAILY Nitrostat SL (Nitroglycerin) 0.4 Mg Subl 0.4 Mg SL DIRECTED PRN 1 tablet under the tongue as needed for chest pain. Repeat every 5 minutes for a total of 3 DOSES or call 911 if NO relief. Atorvastatin (Atorvastatin Calcium) 40 Mg Tab 40 Mg PO HS Ranitidine (Ranitidine HCl) 150 Mg Cap 150 Mg PO BID Lyrica (Pregabalin) 100 Mg Cap 150 Mg PO BID Pantoprazole (Pantoprazole Sodium) 40 Mg Tab 40 Mg PO BID Isosorbide Mononitrate ER (Isosorbide Mononitrate) 120 Mg Cat 120 Mg PO DAILY Gabapentin 300 Mg Cap 400 Mg PO TID Active Ordered Medications Current Medications Medications (Trade) Dose Ordered Sig/Tisha Route Start Time Stop Time Status Last Admin Pharmacy Profile Note 0 ml @ 0 mls/hr UNSCH OTHER 01/12/17 15:00 Piperacillin Sod/ Tazobactam Sod 50 ml @ 100 mls/hr Q6H IV 01/12/17 17:00 01/14/17 11:29 (D50w (Vial) Inj) 50 ml UNSCH PRN IV 01/12/17 14:15 (Glucagon Inj) 1 mg UNSCH PRN OTHER 01/12/17 14:15 (NovoLOG SUPPLEMENTAL SCALE) 1 ACHS SLIDING SCALE SQ 01/12/17 17:00 01/14/17 12:08 (NS Flush) 2 ml UNSCH PRN IV FLUSH 01/12/17 14:15 (NS Flush) 2 ml BID IV FLUSH 01/12/17 21:00 01/14/17 08:30 (Zofran Inj) 4 mg Q6H PRN IVP 01/12/17 14:15 (Lovenox Inj) 40 mg Q24H SQ 01/12/17 15:00 01/13/17 16:19 (Narcan Inj) 0.4 mg UNSCH PRN IV PUSH 01/12/17 14:15 (Janeth-Colace) 1 tab BID PO 01/12/17 21:00 01/12/17 20:33 (Milk Of Magnesia Liq) 30 ml Q12H PRN PO 01/12/17 14:15 (Senokot) 17.2 mg Q12H PRN PO 01/12/17 14:15 (Dulcolax Supp) 10 mg DAILY PRN RECTAL 01/12/17 14:15 (Lactulose Liq) 30 ml DAILY PRN PO 01/12/17 14:15 Vancomycin HCl 1400 mg/Sodium Chloride 514 ml @ 250 mls/hr Q18H IV 01/13/17 00:00 01/14/17 12:08 Miscellaneous Information SPECIFIC LAB TO BE DRAWN:VANCOMY... ONCE ONCE .XX 01/15/17 05:45 01/15/17 05:46 (Aspirin Chew) 81 mg DAILY CHEW 01/13/17 09:00 01/14/17 08:30 (Lipitor) 40 mg HS PO 01/12/17 21:00 01/13/17 21:05 (Neurontin) 400 mg TID PO 01/12/17 18:00 01/14/17 12:11 (Imdur) 120 mg DAILY@0600 PO 01/13/17 06:00 01/14/17 05:59 (Toprol Xl) 12.5 mg DAILY PO 01/13/17 09:00 01/13/17 08:12 (Protonix) 40 mg BID PO 01/12/17 21:00 01/14/17 08:30 (KCl) 10 meq DAILY PO 01/13/17 09:00 01/13/17 08:11 (Lyrica) 150 mg BID PO 01/12/17 21:00 01/14/17 08:29 (Pill Splitter) 1 ea UNSCH PRN OTHER 01/12/17 18:00 (Roxicodone) 10 mg Q4H PRN PO 01/12/17 18:30 01/14/17 08:29 (Dilaudid Pf Inj) 0.5 mg Q8H PRN IV PUSH 01/13/17 13:45 01/14/17 08:31 Family History Reviewed is significant for mother at age 70 from renal failure, heart disease, father at age 55 from not getting attention to his medical conditions. Social History Patient continues to smoke one half pack a cigarettes a day since he was 15 years old. Patient denies any alcohol or illicit drugs Physical Exam Vital Signs Vital Signs Date Time Temp Pulse Resp B/P (MAP) Pulse Ox O2 Delivery O2 Flow Rate FiO2 01/14/17 09:17 18 01/14/17 09:17 18 01/14/17 09:17 18 01/14/17 08:00 98.1 88 18 106/76 (86) 97 01/14/17 00:00 98.6 74 16 100/64 (76) 98 01/13/17 20:00 98.0 75 16 105/69 (81) 97 01/13/17 16:00 97.9 74 18 103/67 (79) 95 01/13/17 12:00 97.7 62 18 100/70 (80) 95 Physical Exam GENERAL: This is a well-nourished, well-developed patient, in no apparent distress. SKIN: No rashes, ecchymoses or lesions. Cool and dry. HEAD: Atraumatic. Normocephalic. No temporal or scalp tenderness. EYES: Pupils equal round and reactive. Extraocular motions intact. No scleral icterus. No injection or drainage. ENT: Nose without bleeding, purulent drainage or septal hematoma. Throat without erythema, tonsillar hypertrophy or exudate. Uvula midline. Airway patent. NECK: Trachea midline. No JVD or lymphadenopathy. Supple, nontender, no meningeal signs. CARDIOVASCULAR: Regular rate and rhythm without murmurs, gallops, or rubs. RESPIRATORY: Clear to auscultation. Breath sounds equal bilaterally. No wheezes , rales, or rhonchi. GASTROINTESTINAL: Abdomen soft, non-tender, nondistended. No hepato-splenomegaly , or palpable masses. No guarding. MUSCULOSKELETAL: LLE with erythema, tenderness. Left 3rd metatarsal plantar aspect with ulcer noted with some minimal discharge. Right index finger with blister and area of cellulitis. Unable to flex finger completely. NEUROLOGICAL: Awake and alert. Grossly non focal Psych: cooperative IV line sites with no e.o infection. Laboratory Laboratory Tests Test 01/14/17 06:22 Creatinine 0.98 Estimat Glomerular Filtration Rate 81 Date/Time Source Procedure Growth Status 01/12/17 11:03 Blood Peripheral Aerobic Blood Culture - Preliminary NO GROWTH IN 2 DAYS Resulted 01/12/17 11:03 Blood Peripheral Anaerobic Blood Culture - Preliminary NO GROWTH IN 2 DAYS Resulted 01/12/17 11:30 Wound Finger Gram Stain - Final Complete 01/12/17 11:30 Wound Culture - Final Group A Beta Strep Complete Result Diagram: 01/13/17 0647 01/14/17 0622 Imaging Last Impressions Foot X-Ray 01/13/17 0000 Signed Impressions: Service Date/Time: Friday, January 13, 2017 14:22 - CONCLUSION: Slightly expansile somewhat ill-defined lytic lesion involving the distal third metatarsal, as above. This may reflect a small Saravanan's abscess in the appropriate clinical setting. Further evaluation may be performed with MRI exam as clinically warranted. Hay Tierney MD Assessment and Plan Assessment and Plan Grp A Strep bacteremia appears transient. Grp A Strep in wound infection site. 3rd metatarsal left foot with ? abscess or osteomyelitis. Left leg cellulitis. Diabetes uncontrolled with neuropathy Right index finger cellulitis possible abscess. Recs: Continue Zosyn IV DC Vanco IV. Follow cultures. follow clinically. Check MRI left foot (r/o osteomyelitis 3rd metatarsal) Consult podiatry Consult hand surgery (right index finger abscess ? tenosynovitis (unable to flex finger completely) Dr.Reba Guzman and other ID MDs based director of education and training schedule to cover for me starting tomorrow. Anna Damon MD Jan 14, 2017 11:21
[2017-01-14 12:00] VITALS: BP 104/77; PULSE 76; RESP 18; TEMP 96.9; O2SAT 95
[2017-01-14] MEDS: VANCOMYCIN INJ 1,400 MG in SODIUM CHLORID 0.9% 500 ML INJ 500 ML IV SCH (12:08)
--- NOTE | 2017-01-14 13:11 | HHI.PR ---
Subjective Remarks Follow-up on left lower leg cellulitis and hand infection. Case discussed with ID - continue antibiotics, await sensitivities, considering hand surgery consult Objective Vital Signs Date Time Temp Pulse Resp B/P (MAP) Pulse Ox O2 Delivery O2 Flow Rate FiO2 01/14/17 09:17 18 01/14/17 09:17 18 01/14/17 09:17 18 01/14/17 08:00 98.1 88 18 106/76 (86) 97 01/14/17 00:00 98.6 74 16 100/64 (76) 98 01/13/17 20:00 98.0 75 16 105/69 (81) 97 01/13/17 16:00 97.9 74 18 103/67 (79) 95 I/O 01/13/17 01/13/17 01/13/17 01/14/17 01/14/17 01/14/17 07:00 15:00 23:00 07:00 15:00 23:00 Intake Total 1050 ml 770 ml 340 ml Output Total 750 ml 1000 ml 300 ml Balance -750 ml 1050 ml -230 ml 40 ml Intake Oral 240 ml IV Total 1050 ml 770 ml 100 ml Output Urine Total 750 ml 1000 ml 300 ml # Voids 2 # Bowel Movements 0 Result Diagram: 01/13/17 0647 01/14/17 0622 Objective Remarks No acute distress Open wound on posterior surface of skin overlying the proximal phalanx of right hand, no obvious drainage but appears erythematous with patient having limited flexion of index finger with resulting pain, no edema noted over palmar or dorsal surface of the hand otherwise, no MCP tenderness or erythema noted. Left lower leg with erythema, worse on midshaft posterior aspect of calf - erythema overall has improved compared to marked boundaries since yesterday, has mild pedal edema that is not erythematous and nontender Plantar aspect of left 3rd toe w/ tender scab w/ erythematous base A/P Assessment and Plan LE cellulitis - sepsis component resolved, likely source was toe innoculation injury cont vancomycin and Zosyn Repeat blood cultures so far NG infectious disease consult - appreciate recommendations -Right index finger wound - wound culture growing group A beta strep. -Diabetes type 2 Accu-Cheks with sliding scale insulin -Small wound posterior right third toe - check xray r/o foreign body, monitor site, consult podiatry if worsens Hypertension, hyperlipidemia, coronary disease Continue home medications DVT prevention Subcutaneous Lovenox Jaycob Hawley MD Jan 14, 2017 13:11
[2017-01-14] MEDS: diphenhydrAMINE HCL 2%/ZINC ACETATE 0.1% CREAM 30 APPLIC/30 GM TUBE TOPICAL PRN ×2 (15:26→21:13)
[2017-01-14] MEDS: ENOXAPARIN SODIUM 40 MG/0.4 ML SYRINGE SQ SCH (15:26)
[2017-01-14] MEDS ORDERED: GADODIAMIDE PF 287 MG/ML 5 ML VIAL (for RAD MRI) IVCONTRAST ONE (16:20)
--- NOTE | 2017-01-14 17:21 | RADRPT ---
EXAM DATE/TIME: 01/14/2017 17:03 [facility] COMPARISON: No previous studies available for comparison. INDICATIONS : Right hand, second digit pain. MEDICAL HISTORY : None. SURGICAL HISTORY : None. ENCOUNTER: Initial ACUITY: 4 - 6 days PAIN SCORE: 4/10 LOCATION: Right hand, 2nd digit. FINDINGS: Three view examination of the right hand demonstrates no soft tissue swelling, dislocation, or fractu re. The carpal bones appear intact. The interphalangeal and metacarpophalangeal joints are intact. Bony mineralization is normal. CONCLUSION: Negative for soft tissue swelling or fracture. Ke Galeano MD FACR on January 14, 2017 at 17:19 Board Certified Radiologist. This report was verified electronically.
[2017-01-14 18:00] VITALS: BP 110/78; PULSE 77; RESP 18; TEMP 97; O2SAT 95
[2017-01-14] MEDS: BACITRACIN TOP OINT 15 GM TUBE TOPICAL SCH (18:47)
[2017-01-14 20:00] VITALS: BP 121/81; PULSE 80; RESP 20; TEMP 96.6; O2SAT 98
[2017-01-14] MEDS: ATORVASTATIN 40 MG TAB PO SCH (20:47)
[2017-01-15] VITALS: BP 108/62; PULSE 71; RESP 20; TEMP 95.5; O2SAT 95
--- NOTE | 2017-01-15 00:02 | MB ---
cc: TORI GUTIÉRREZ DATE OF CONSULTATION 01/14/17 CHIEF COMPLAINT Left foot ulceration with cellulitis, possible sepsis. HISTORY OF PRESENT ILLNESS Mr. Jose is a 51-year-old male that states that about 4 days ago he developed erythema and pain to his left lower extremity, started as a blister. He has tenderness to the left third digit and also tenderness to a right index finger wound as well. He stated that the pain was getting progressively worse and he went to the hospital for evaluation. He was discharged home with Bactrim and Keflex at his urging as he did not want to be admitted at the time. However, three out of four blood cultures came back as gram-positive cocci so the ER contacted the patient and requested he come back in for IV antibiotics which he has done. He states that since receiving the IV antibiotics he is feeling better. His appetite has returned and his pain has decreased. He is uncertain how the wound on his foot or in his finger first began. He denies any current nausea, vomiting, fever, headaches or chills. PAST MEDICAL HISTORY Includes hypertension, hyperlipidemia. Coronary artery disease, diabetes, GERD, chronic kidney disease, chronic back pain. Migraines, anxiety. PAST SURGICAL HISTORY Coronary bypass, spinal stimulator insertion and removal. MEDICATIONS Please see list. ALLERGIES ATORVASTATIN, MORPHINE. FAMILY HISTORY Noncontributory. SOCIAL HISTORY The patient smokes half a pack of cigarettes per day since he was [id number]. Denies any alcohol or drug abuse. VITAL SIGNS: Temperature is 96.9 with a T-max of 98.0, pulse is 76, respiratory rate 18, blood pressure 104/__, pulse ox 95% O2 on room air. LABORATORY DATA White count is 7.9 down from 13.8. Hemoglobin 13.8, hematocrit 41.9, platelets 180, sodium 136, potassium 3.7, chloride 103, carbon dioxide 24.3, BUN 15. Blood cultures from January 12 are negative x2 days. Wound culture of the finger shows moderate growth of positive cocci in pairs and group A beta strep. IMAGING STUDIES Foot x-ray shows a small occlusion cyst in the third metatarsal head in the lateral aspect, questionable Saravanan's abscess. No gas in the soft tissue. No true cortical erosion, however, there is bulging and thinning of the lateral cortex at the site of the cyst. An MRI has been done but the read is still pending. No obvious signs of abscess on MRI to me. PHYSICAL EXAMINATION The patient has palpable DP pulses, diminished PT pulses. Cap fill time less than 3 seconds. Gross sensation is diminished but intact. Active range of motion to all digits. The right foot is unremarkable. The left third digit is tender to touch and at the plantar aspect of the MPJ crease there is a small ulceration 4 mm x 6 mm x 0. No deep probing, granular wound bed, no erythema, no drainage. No malodor. ASSESSMENT 1. Left foot stage II ulceration with resolving cellulitis, questionable osteomyelitis. - The patient appears low risk for osteomyelitis to me based on physical presentation as well as radiographs but I will wait for the final MRI report before making any treatment. PLAN 1. The patient is aware that if the MRI is positive for osteomyelitis we need to discuss surgical options versus prolonged IV antibiotic usage. 2. Daily wound care orders have been placed for nursing staff. 3. Will continue to check on the patient as well as check his results on a regular basis. 4. The patient should follow up with me in the office 5 days after discharge. Thanks for this consultation and allowing me to be involved in this patient's care. Tori ENGEL /6:07 PM /11:45 PM REG
[2017-01-15] MEDS: PIPERACIL-TAZO 3.375 GM PREMIX 50 ML IV SCH ×4 (05:29→22:59)
[2017-01-15] MEDS ORDERED: VANCOMYCIN TROUGH ONE (05:45)
[2017-01-15] MEDS: ISOSORBIDE MONONITRATE 60 MG TAB PO SCH (06:00)
--- NOTE | 2017-01-15 07:39 | MB ---
cc: ALLYSSA VAZQUEZ DATE OF CONSULTATION 01/14/2017 REASON FOR CONSULT Infection right index finger. HISTORY OF PRESENT ILLNESS Ke Jose is a 51-year-old male on disability who initially presented to the emergency room on 01/12/2017 after noted to have positive blood culture. The patient also has a history of diabetes. He states his A1c is around 8 but this is not documented in the current chart. The patient states that he struck the dorsum of his right index finger on his bed prior to presentation. A culture from the right index finger on 01/12/2017 was positive for a Group A Beta Strep. I was consulted by Infectious Disease for evaluation. The patient is right-hand dominant. He also is a history of coronary artery disease and chronic kidney disease. He does smoke one pack per day. An admission glucose was 311, decreased to 155. White count was 13.8, decreased to 7.9. The patient reports no significant discomfort over the index finger and reports baseline paresthesias in the hands. X-ray of the right hand shows no evidence of osteomyelitis or fracture. ALLERGIES ATORVASTATIN. MORPHINE. PAST MEDICAL HISTORY 1. Hypertension. 2. Coronary artery disease. 3. Diabetes. 4. Back pain. 5. Peripheral neuropathy. 6. Chronic kidney disease. PAST SURGICAL HISTORY 1. Spinal stimulator. 2. Coronary bypass. MEDICATIONS 1. ProAir. 2. Glipizide. 3. Sumatriptan. 4. Metoprolol. 5. Potassium. PHYSICAL EXAMINATION VITAL SIGNS: Stable. Temperature 98.1, pulse 74, blood pressure 106/76. RIGHT HAND: Exam of the right index finger shows an abrasion over the dorsum of the right index finger with a mild amount of superficial purulence. No active extension, full flexion. No pain over the PIP or MP joint. Sensation present but decreased on the radioulnar side. Less than 2-second capillary refill. ASSESSMENT A 51-year-old male with a superficial abscess growing Strep A over the right index finger. PLAN 1. No indication for surgical intervention at this time. 2. The patient will continue recommendations of Infectious Disease. Daily dressing changes. Antibiotic Management per Infectious Disease. 3. Followup in the office on discharge in likely 1-2 weeks. 4. Also close glucose control as the patient had significantly elevated glucose on admission. MD FELIPE Singh /8:27 PM /7:23 AM MTDNathan
[2017-01-15 08:00] VITALS: BP 136/92; PULSE 76; RESP 18; TEMP 97.6; O2SAT 95
[2017-01-15] MEDS: ASPIRIN 81 MG CHEW TAB CHEW SCH (08:28)
[2017-01-15] MEDS: DOCUSATE SODIUM 50 MG/SENNA 8.6 MG TAB PO SCH ×3 (08:29→20:04)
[2017-01-15] MEDS: PREGABALIN 75 MG CAP PO SCH ×2 (08:29→20:02)
[2017-01-15] MEDS: PANTOPRAZOLE SOD 40 MG DELAYED RELEASE TAB PO SCH ×2 (08:30→20:02)
[2017-01-15] MEDS: POTASSIUM CHLORIDE 10 MEQ CONTROLLED RELEASE TAB PO SCH (08:30)
[2017-01-15] MEDS: METOPROLOL SUCCINATE 25 MG EXTENDED RELEASE TAB PO SCH (08:31)
[2017-01-15] MEDS: GABAPENTIN 400 MG CAP PO SCH ×3 (08:31→16:13)
[2017-01-15] MEDS: BACITRACIN TOP OINT 15 GM TUBE TOPICAL SCH (08:32)
[2017-01-15] MEDS: SODIUM CHLORIDE 0.9% FLUSH 10 ML FLUSH IV FLUSH SCH ×2 (08:32→20:49)
[2017-01-15] MEDS: HYDROmorphone HCL PF 1 MG/ML VIAL IV PUSH PRN ×2 (08:34→16:31)
--- NOTE | 2017-01-15 08:51 | RADRPT ---
EXAM DATE/TIME: 01/14/2017 16:12 [facility] COMPARISON: FOOT LEFT LIMITED (2VWS), January 13, 2017, 14:22. INDICATIONS : Abscess. Left foot third digit pain, osteomyelitis. CONTRAST: 19 cc Omniscan (gadodiamide) IV MEDICAL HISTORY : Hypertension. Diabetes mellitus type 2. Renal insufficiency. SURGICAL HISTORY : CABG Spinal Stimular removed 11/2016, ENCOUNTER: Initial ACUITY: 1 week PAIN SCORE: 05/08 LOCATION: Left foot, 3rd digit TECHNIQUE: Multiplanar, multisequence MRI examination was performed without contrast and after the intravenous a dministration of gadolinium. FINDINGS: BONE/CARTILAGE: Within the lateral aspect of the third metatarsal neck there is a cystic lesion, the same lesion seen on the plain film. The lesion measures 7 x 10 mm . Expands the lateral cortex but remains well-circ umscribed . The lesions are cystic on the T2 images and shows very low-grade enhancement . Could be intraosseous hemangioma or conceivably a chondroid lesion . It does not have the appearance of an e rosion . Articular cartilage signal is within normal limits. TENDONS: All of the visualized tendons are intact. MISCELLANEOUS: Diffuse soft tissue edema across the dorsum of the foot and around the ankle . Plantar aponeurosis i s intact. Sinus tarsi is within normal limits. POST-CONTRAST: There are no abnormal areas of enhancement on the post-contrast images. CONCLUSION: 1. Expansile lesion in the distal lateral third metatarsal neck with imaging characteristics suspicio us for a enchondroma. With cortical expansion laterally it certainly should be followed at least rad iography. Transition to chondrosarcoma is are incredibly rare but do occur. I don't see any signific ant enhancement at this point already surrounding soft tissue mass. 2. Diffuse soft tissue edema without evidence of osteomyelitis Elias Steward MD on January 15, 2017 at 8:41 Board Certified Radiologist. This report was verified electronically.
[2017-01-15] MEDS: INSULIN ASPART SUPPLEMENTAL SCALE SQ SCH ×4 (08:54→20:49)
[2017-01-15 12:00] VITALS: BP 128/78; PULSE 72; RESP 19; TEMP 97.7; O2SAT 96
[2017-01-15] MEDS: ENOXAPARIN SODIUM 40 MG/0.4 ML SYRINGE SQ SCH (14:13)
--- NOTE | 2017-01-15 15:52 | HHI.PR ---
Subjective Remarks Follow-up on left lower leg cellulitis and hand infection. Nursing reports no acute events since last night. Patient states that his leg is less red today, no fevers or chills. Objective Vital Signs Date Time Temp Pulse Resp B/P (MAP) Pulse Ox O2 Delivery O2 Flow Rate FiO2 01/15/17 12:00 97.7 72 19 128/78 (95) 96 01/15/17 08:00 97.6 76 18 136/92 (107) 95 01/15/17 00:00 95.5 71 20 108/62 (77) 95 01/14/17 20:00 96.6 80 20 121/81 (94) 98 01/14/17 18:00 97.0 77 18 110/78 (89) 95 I/O 01/14/17 01/14/17 01/14/17 01/15/17 01/15/17 01/15/17 07:00 15:00 23:00 07:00 15:00 23:00 Intake Total 340 ml 600 ml 570 ml Output Total 300 ml 400 ml Balance 40 ml 600 ml 170 ml Intake Oral 240 ml 600 ml 520 ml IV Total 100 ml 50 ml Output Urine Total 300 ml 400 ml # Voids 2 # Bowel Movements 0 Result Diagram: 01/13/17 0647 01/14/17 0622 Objective Remarks No acute distress Right hand is wrapped, no erythema noted wrist or forearm Left lower leg with erythema, worse on midshaft posterior aspect of calf - erythema overall continues to improve with mild pedal edema Left third toe in gauze wrapping, intact plantar flexion dorsiflexion of foot and toes A/P Assessment and Plan LE cellulitis - sepsis component resolved, likely source was toe innoculation injury cont vancomycin and Zosyn blood cultures so far NG infectious disease consult - appreciate recommendations -Right index finger wound - wound culture growing group A beta strep. -Diabetes type 2 Accu-Cheks with sliding scale insulin -Small wound posterior right third toe - check xray r/o foreign body, monitor site. Podiatry consulted, appreciate recommendations, MRI is unremarkable for any osteomyelitis Hypertension, hyperlipidemia, coronary disease Continue home medications DVT prevention Subcutaneous Lovenox Jaycob Hawley MD Jan 15, 2017 15:52
[2017-01-15 16:00] VITALS: BP 136/75; PULSE 69; RESP 18; TEMP 98.2; O2SAT 95
--- NOTE | 2017-01-15 18:05 | PD.POD ---
Subjective Podiatric Problems Left 3rd toe ulcer with resolving infection to LLE. Patient denies any n/v/f/h/c /sob. He states that he only has pain with direct pressure applied to the toe, and no pain to the leg. Pain score: 0 Past Med/Surg/Social History Social History Smoking Status: Current Every Day Smoker Objective Vital Signs Vital Signs Date Time Temp Pulse Resp B/P (MAP) Pulse Ox O2 Delivery O2 Flow Rate FiO2 01/15/17 16:00 98.2 69 18 136/75 (95) 95 01/15/17 12:00 97.7 72 19 128/78 (95) 96 01/15/17 08:00 97.6 76 18 136/92 (107) 95 01/15/17 00:00 95.5 71 20 108/62 (77) 95 01/14/17 20:00 96.6 80 20 121/81 (94) 98 Coded Allergies: atorvastatin (Unverified Allergy, Mild, Pt denies allergy- states he currently takes this medication, 01/12/17) Pt denies allergy- states he currently takes this medication 03/08/15 morphine (Unverified Adverse Reaction, Mild, vomiting, 01/12/17) Exam-Podiatry Remarks Left 3rd plantar MPJ ulcer 0.4cm x 0.5cm x 0, no erythema, minimal sanginous drainage, no malodor, minimal edema. Left posterior calf with red brownish discoloration and superficial plaque lesions. No warmth to the leg and no open wounds. Assessment & Plan A/P 1)left foot stage II ulcer with resolving infection -MRI is more consistent with enchondroma and not osteomyletis. I discussed this with the patient in detail and spoke with him about the importance of routine radiographs to monitor the area -Cont daily wound care -WBAT -ok for d/c from a podiatry stand point -discussed with ID in detail -Follow up with 3-5 days after d/c Tori Briceno DPM Jan 15, 2017 18:05
--- NOTE | 2017-01-15 19:11 | HHI.IDPN ---
Subjective Subjective Remarks ID FU DR POTTER PT SITTING UP IN CHAIR FEELS BETTER AFEBRILE AND WITH OUT COMPLAINT Allergies: Coded Allergies: atorvastatin (Unverified Allergy, Mild, Pt denies allergy- states he currently takes this medication, 01/12/17) Pt denies allergy- states he currently takes this medication 03/08/15 morphine (Unverified Adverse Reaction, Mild, vomiting, 01/12/17) Objective . Vital Signs Date Time Temp Pulse Resp B/P (MAP) Pulse Ox O2 Delivery O2 Flow Rate FiO2 01/15/17 16:00 98.2 69 18 136/75 (95) 95 01/15/17 12:00 97.7 72 19 128/78 (95) 96 01/15/17 08:00 97.6 76 18 136/92 (107) 95 01/15/17 00:00 95.5 71 20 108/62 (77) 95 01/14/17 20:00 96.6 80 20 121/81 (94) 98 01/15/17 01/15/17 01/16/17 15:00 23:00 07:00 Intake Total 50 ml 50 ml Balance 50 ml 50 ml IV Total 50 ml 50 ml . Laboratory Tests Test 01/14/17 06:22 Creatinine 0.98 MG/DL Estimat Glomerular Filtration Rate 81 ML/MIN Physical Exam AWAKE / OX3 PERRL NS CHEST : RRR LUNGS CTA ABD: SOFT ACTIVE BS EXT. RIGHT INDEX FINGER REDNESS MUCH BETTER, SOME MACERATION BUT SUPERIFICAL AND HEALING. LLE REDNESS IS BETTER AND MORE CENTRAL AT CALF. WARMTH NEARLY RESOLVED Assessment & Plan Diagnosis: (1) Neuropathy, peripheral ICD Codes: G62.9 - Polyneuropathy, unspecified Status: Acute (2) Cellulitis of left leg ICD Codes: L03.116 - Cellulitis of left lower limb Status: Acute Plan: REPEAT CULTURES NEGATIVE CULTURES + STREP WILL DC ZOSYN START ROCEPHIN IF CONTINUES TO IMPROVE KEFLEX ON DC X 14DAYS FU (3) Sepsis affecting skin ICD Codes: A41.9 - Sepsis, unspecified organism Status: Acute (4) Bacteremia ICD Codes: R78.81 - Bacteremia (5) Hx of CABG ICD Codes: Z95.1 - Presence of aortocoronary bypass graft Status: Acute Antonia Hollingsworth Jan 15, 2017 19:11
[2017-01-15 20:00] VITALS: BP 143/98; PULSE 70; RESP 20; TEMP 97.7; O2SAT 94
[2017-01-15] MEDS: ATORVASTATIN 40 MG TAB PO SCH (20:02)
[2017-01-16] VITALS: BP 121/84; PULSE 72; RESP 20; TEMP 98; O2SAT 98
[2017-01-16] MEDS: diphenhydrAMINE HCL 2%/ZINC ACETATE 0.1% CREAM 30 APPLIC/30 GM TUBE TOPICAL PRN ×3 (00:04→22:07)
[2017-01-16] MEDS: HYDROmorphone HCL PF 1 MG/ML VIAL IV PUSH PRN ×3 (00:49→16:17)
[2017-01-16 04:00] VITALS: BP 112/64; PULSE 76; RESP 20; TEMP 96; O2SAT 96
[2017-01-16] MEDS: PIPERACIL-TAZO 3.375 GM PREMIX 50 ML IV SCH ×4 (05:16→23:01)
[2017-01-16] MEDS: ISOSORBIDE MONONITRATE 60 MG TAB PO SCH (05:50)
[2017-01-16] MEDS: GABAPENTIN 400 MG CAP PO SCH ×3 (07:54→16:18)
[2017-01-16] MEDS: PREGABALIN 75 MG CAP PO SCH ×2 (07:55→20:08)
[2017-01-16] MEDS: DOCUSATE SODIUM 50 MG/SENNA 8.6 MG TAB PO SCH ×2 (07:55→20:06)
[2017-01-16] MEDS: ASPIRIN 81 MG CHEW TAB CHEW SCH (07:56)
[2017-01-16] MEDS: POTASSIUM CHLORIDE 10 MEQ CONTROLLED RELEASE TAB PO SCH (07:56)
[2017-01-16] MEDS: PANTOPRAZOLE SOD 40 MG DELAYED RELEASE TAB PO SCH ×2 (07:56→20:08)
[2017-01-16] MEDS: METOPROLOL SUCCINATE 25 MG EXTENDED RELEASE TAB PO SCH (07:57)
[2017-01-16] MEDS: INSULIN ASPART SUPPLEMENTAL SCALE SQ SCH ×4 (07:58→20:09)
[2017-01-16 08:00] VITALS: BP 113/76; PULSE 82; RESP 18; TEMP 97.8; O2SAT 93
[2017-01-16] MEDS: SODIUM CHLORIDE 0.9% FLUSH 10 ML FLUSH IV FLUSH SCH ×2 (09:00→20:09)
[2017-01-16] MEDS: BACITRACIN TOP OINT 15 GM TUBE TOPICAL SCH ×2 (09:00→09:41)
[2017-01-16 12:00] VITALS: BP 116/75; PULSE 77; RESP 19; TEMP 97.7; O2SAT 95
[2017-01-16] MEDS: FUROSEMIDE 20 MG TAB PO SCH (14:25)
[2017-01-16] MEDS: ENOXAPARIN SODIUM 40 MG/0.4 ML SYRINGE SQ SCH (14:27)
--- NOTE | 2017-01-16 15:50 | HHI.PR ---
Subjective Remarks Follow-up on left lower leg cellulitis and hand infection. Nursing reports no acute events since last night. Patient states that he has chronic lower extremity edema on the left lower leg and would like Lasix as well as slightly increased pain dosing. Says that he can move his finger much more now. Objective Vital Signs Date Time Temp Pulse Resp B/P (MAP) Pulse Ox O2 Delivery O2 Flow Rate FiO2 01/16/17 12:00 97.7 77 19 116/75 (89) 95 01/16/17 10:59 20 01/16/17 08:51 20 01/16/17 08:51 20 01/16/17 08:00 97.8 82 18 113/76 (88) 93 01/16/17 04:00 96.0 76 20 112/64 (80) 96 01/16/17 00:00 98.0 72 20 121/84 (96) 98 01/15/17 20:00 97.7 70 20 143/98 (113) 94 01/15/17 16:00 98.2 69 18 136/75 (95) 95 I/O 01/15/17 01/15/17 01/15/17 01/16/17 01/16/17 01/16/17 07:00 15:00 23:00 07:00 15:00 23:00 Intake Total 570 ml 50 ml 950 ml 300 ml Output Total 400 ml Balance 170 ml 50 ml 950 ml 300 ml Intake Oral 520 ml 900 ml 300 ml IV Total 50 ml 50 ml 50 ml Output Urine Total 400 ml # Voids 5 3 # Bowel Movements 0 0 0 Result Diagram: 01/13/17 0647 01/14/17 0622 Objective Remarks No acute distress Right hand is wrapped, no erythema noted wrist or forearm, good almost full intact active range of motion of index finger, no drainage noted from wound on dorsal aspect of index finger Left lower leg with erythema, worse on midshaft posterior aspect of calf - erythema is stable Left third toe in gauze wrapping, intact plantar flexion dorsiflexion of foot and toes A/P Assessment and Plan LE cellulitis likely source was toe inoculation injury cont vancomycin and Zosyn blood cultures so far NG infectious disease consult - appreciate recommendations - will let ID decided if PICC line now or transition to PO is medically appropriate since pt is asking for prompt discharge 2/2 social stressors. -Right index finger wound - wound culture growing group A beta strep. Clinically improving. Hand surgery sees no need for any intervention, appreciate recommendations -Diabetes type 2 Accu-Cheks with sliding scale insulin -Small wound posterior right third toe - check xray r/o foreign body, monitor site. Podiatry consulted, appreciate recommendations with no need for seen for surgical intervention at this time, MRI is unremarkable for any osteomyelitis Hypertension, hyperlipidemia, coronary disease Continue home medications DVT prevention Subcutaneous Lovenox Discharge Planning per ID recs since pt is otherwise clinically stable and ambulatory. Jaycob Hawley MD Jan 16, 2017 15:50
[2017-01-16 16:00] VITALS: BP 109/70; PULSE 80; RESP 18; TEMP 97.6; O2SAT 96
[2017-01-16 20:00] VITALS: BP 119/82; PULSE 69; RESP 20; O2SAT 95
[2017-01-16] MEDS: ATORVASTATIN 40 MG TAB PO SCH (20:08)
[2017-01-17] VITALS: BP 114/82; PULSE 70; RESP 20; TEMP 98; O2SAT 94
[2017-01-17] MEDS: HYDROmorphone HCL PF 1 MG/ML VIAL IV PUSH PRN (00:19)
[2017-01-17] MEDS: PIPERACIL-TAZO 3.375 GM PREMIX 50 ML IV SCH ×2 (05:44→11:48)
[2017-01-17] MEDS: ISOSORBIDE MONONITRATE 60 MG TAB PO SCH (06:33)
[2017-01-17 08:00] VITALS: BP 108/74; PULSE 71; RESP 19; TEMP 96.1; O2SAT 92
[2017-01-17] MEDS: INSULIN ASPART SUPPLEMENTAL SCALE SQ SCH ×2 (08:04→11:17)
[2017-01-17] MEDS: DOCUSATE SODIUM 50 MG/SENNA 8.6 MG TAB PO SCH (08:05)
[2017-01-17] MEDS: METOPROLOL SUCCINATE 25 MG EXTENDED RELEASE TAB PO SCH (08:05)
[2017-01-17] MEDS ORDERED: CEPH500C PO (08:27)
--- NOTE | 2017-01-17 08:36 | HHI.IDPN ---
Subjective Subjective Remarks NO FEVERS SOME SWELLING IN LEGS BUT REDNESS NEAR RESOLVED ANXIOUS TO GO HOME Antibiotics CEFTRIAXONE Lines PERIPHERAL IV Past Medical History CAD Allergies: Coded Allergies: atorvastatin (Unverified Allergy, Mild, Pt denies allergy- states he currently takes this medication, 01/12/17) Pt denies allergy- states he currently takes this medication 03/08/15 morphine (Unverified Adverse Reaction, Mild, vomiting, 01/12/17) Objective . Vital Signs Date Time Temp Pulse Resp B/P (MAP) Pulse Ox O2 Delivery O2 Flow Rate FiO2 01/17/17 00:50 18 01/17/17 00:00 98.0 70 20 114/82 (93) 94 01/16/17 23:13 16 01/16/17 21:23 18 01/16/17 20:00 69 20 119/82 (94) 95 01/16/17 16:00 97.6 80 18 109/70 (83) 96 01/16/17 12:00 97.7 77 19 116/75 (89) 95 01/16/17 08:51 20 Physical Exam AWAKE / OX3 PERRL NS CHEST : RRR LUNGS CTA ABD: SOFT ACTIVE BS EXT. RIGHT INDEX FINGER REDNESS NEAR RESOLVED 2PLUS EDEMA OF LEGS BUT LLE CELLULITIS MARKEDLY BETTER Assessment & Plan Diagnosis: (1) Cellulitis of left leg ICD Codes: L03.116 - Cellulitis of left lower limb Status: Acute Plan: PATIENT CAN BE CHANGED TO PO CEPHALEXIN 500 MG QID X 14 DAYS AND DISCHARGED FROM ID POINT OF VIEW (2) Sepsis affecting skin ICD Codes: A41.9 - Sepsis, unspecified organism Status: Acute (3) Wound, open, finger ICD Codes: S61.209A - Unspecified open wound of unspecified finger without damage to nail, initial encounter (4) Bacteremia ICD Codes: R78.81 - Bacteremia Plan: REPEAT BLOOD CULTURE IS NEGATIVE Elizabet Guzman MD Jan 17, 2017 08:36
[2017-01-17] MEDS: PREGABALIN 75 MG CAP PO SCH (08:58)
[2017-01-17] MEDS: POTASSIUM CHLORIDE 10 MEQ CONTROLLED RELEASE TAB PO SCH (08:58)
[2017-01-17] MEDS: GABAPENTIN 400 MG CAP PO SCH ×2 (08:58→11:48)
[2017-01-17] MEDS: PANTOPRAZOLE SOD 40 MG DELAYED RELEASE TAB PO SCH (08:59)
[2017-01-17] MEDS: ASPIRIN 81 MG CHEW TAB CHEW SCH (08:59)
[2017-01-17] MEDS: FUROSEMIDE 20 MG TAB PO SCH (08:59)
[2017-01-17] MEDS ORDERED: INSULIN DETEMIR 100 UNITS/ML VIAL SQ SCH (09:00)
[2017-01-17] MEDS: SODIUM CHLORIDE 0.9% FLUSH 10 ML FLUSH IV FLUSH SCH (09:00)
[2017-01-17 11:52] VITALS: BP 109/83; PULSE 85; RESP 18; TEMP 96.5; O2SAT 95
--- NOTE | 2017-01-17 12:16 | HHI.DS ---
Discharge Summary Admission Date Jan 12, 2017 at 11:09 Discharge Date: Jan 17, 2017 Admitting Diagnosis sepsis, cellulitis left lower extremity (1) Sepsis ICD Code: A41.9 - Sepsis, unspecified organism Diagnosis: Principal (2) Bacteremia ICD Code: R78.81 - Bacteremia Diagnosis: Principal (3) Cellulitis of left leg ICD Code: L03.116 - Cellulitis of left lower limb Diagnosis: Principal Status: Acute (4) Wound, open, finger ICD Code: S61.209A - Unspecified open wound of unspecified finger without damage to nail, initial encounter Diagnosis: Principal (5) Neuropathy, peripheral ICD Code: G62.9 - Polyneuropathy, unspecified Status: Acute (6) DM (diabetes mellitus), type 2, uncontrolled ICD Code: E11.65 - Type 2 diabetes mellitus with hyperglycemia Status: Acute (7) Ulcer of right foot due to type 2 diabetes mellitus ICD Code: E11.621 - Type 2 diabetes mellitus with foot ulcer; L97.519 - Non- pressure chronic ulcer of other part of right foot with unspecified severity Procedures None Brief History - From Admission 51-year-old male with known history of hypertension, hyperlipidemia, coronary artery disease, diabetes, gastroesophageal reflux, chronic kidney disease stage II, chronic back pain who presented to the hospital at the request of the ER because of positive blood cultures. Patient indicates that 4 days ago he started developing some erythema and pain in his left lower extremity as well as a blister type wound on his finger in which he states that he accidentally hit his head board while he was asleep. It progressively got worse so he came to the hospital. Patient was evaluated in emergency department and was recommended by the ER physician that the patient be admitted for further evaluation management, however the patient wanted outpatient treatment and was discharged home on Bactrim and Keflex. Patient had blood cultures drawn at that time and has subsequently became positive with 3/4 blood cultures with gram-positive cocci. Wound culture of the finger also indicated a beta strep. Patient came back into the hospital at the request of the ER and was admitted for IV antibiotics and further evaluation and management. CBC/BMP: 01/13/17 0647 01/14/17 0622 Imaging Last Impressions Hand X-Ray 01/14/17 0000 Signed Impressions: Service Date/Time: Saturday, January 14, 2017 17:03 - CONCLUSION: Negative for soft tissue swelling or fracture. Ke Galeano MD FACR Foot MRI 01/14/17 0000 Signed Impressions: Service Date/Time: Saturday, January 14, 2017 16:12 - CONCLUSION: 1. Expansile lesion in the distal lateral third metatarsal neck with imaging characteristics suspicious for a enchondroma. With cortical expansion laterally it certainly should be followed at least radiography. Transition to chondrosarcoma is are incredibly rare but do occur. I don't see any significant enhancement at this point already surrounding soft tissue mass. 2. Diffuse soft tissue edema without evidence of osteomyelitis Elias Steward MD Foot X-Ray 01/13/17 0000 Signed Impressions: Service Date/Time: Friday, January 13, 2017 14:22 - CONCLUSION: Slightly expansile somewhat ill-defined lytic lesion involving the distal third metatarsal, as above. This may reflect a small Saravanan's abscess in the appropriate clinical setting. Further evaluation may be performed with MRI exam as clinically warranted. Hay Tierney MD PE at Discharge GENERAL: Well-developed, well-nourished, in no acute distress. alert and orientated HEENT: Head is normocephalic without any lesions or masses noted. Facial features are symmetric. Eyes: Pupils equal round reactive to light. Extraocular muscles are intact. Conjunctivae were clear. NECK: Trachea midline no deviation. CARDIAC: Regular rhythm, regular rate. S1/S2 are heard. No murmurs gallops or rubs. LUNGS: Clear to auscultation bilaterally. No wheeze, rhonchi or rales. No use of accessory muscles on inspiration or expiration. ABDOMEN: Soft, nontender. Nondistended. LEFT LOWER EXTREMITY: no erythema. middle toe has small wound on posterior metatarsal phalangeal joint without drainage foul smell or erythema. RIGHT HAND: Patient second digit does have a superficial wound with some scabbing. no redness or drainage. have a blister type wound noted that encompasses the entire area from the metacarpal joint to the proximal interphalangeal joint Hospital Course The patient was admitted to the hospital and treated with IV antibiotics. Infectious disease was consulted. Podiatry and hand surgery were also consulted. No surgical care was required for the left toe wound or finger wound. Repeat blood cultures were negative. Local wound care was provided. MRI of the foot showed probable endochondroma, serial x-rays were recommended by podiatry. The patient has been transitioned to by mouth antibiotics to complete a course of Keflex for 2 weeks. He is to follow-up with Dr. Briceno of podiatry in 3-5 days as well as with Dr. Maxwell within 1-2 weeks. Patient was advised to ensure he does follow-up for continued good wound healing as he is at risk for complications and worsening wounds. Continue dressing changes daily. Plan for discharge home today. Pt Condition on Discharge: Stable Discharge Disposition: Discharge Home Discharge Time: > 30 minutes Discharge Instructions DIET: Follow Instructions for: Diabetic Diet Activities you can perform: Regular-No Restrictions Follow up Referrals: Hand Surgery - 2 Weeks with Deborah Maxwell MD PCP Follow-up - 1 Week Podiatry - 1 Week with Tori Briceno DPM New Medications: Cephalexin (Cephalexin) 500 Mg Cap 500 MG PO Q6H for Infection for 14 Days, #56 CAP 0 Refills Continued Medications: Albuterol 8.5 GM Inh (Proair Hfa 8.5 GM Inh) 90 Mcg/Act Aer 1 PUFF INH Q4H PRN for SHORTNESS OF BREATH, #1 INHALER 3 Refills 108 mcg/actuation Aspirin (Aspirin) 81 Mg Chew 81 MG CHEW DAILY, TAB 0 Refills Atorvastatin (Atorvastatin) 40 Mg Tab 40 MG PO HS for Cholesterol Management, #30 TAB 0 Refills Gabapentin (Gabapentin) 300 Mg Cap 400 MG PO TID, #90 CAP 0 Refills Glipizide (Glipizide) 5 Mg Tab 5 MG PO BIDAC for Blood Sugar Management, #60 TAB 12 Refills Take 30 minutes before a meal Insulin Glargine Inj (Lantus Inj) 1,000 Unit/10 Ml Vial 45 UNITS SQ DAILY for Blood Sugar Management, VIAL 0 Refills Isosorbide Mononitrate ER (Isosorbide Mononitrate ER) 120 Mg Cat 120 MG PO DAILY for Prevent Chest Pain, #30 TAB 0 Refills Metoprolol Succinate ER 24 HR (Metoprolol Succinate ER 24 HR) 25 Mg Tab 12.5 MG PO DAILY, #30 TAB 0 Refills Nitroglycerin SL (Nitrostat SL) 0.4 Mg Subl 0.4 MG SL DIRECTED PRN for CHEST PAIN, #100 TAB.SL 0 Refills 1 tablet under the tongue as needed for chest pain. Repeat every 5 minutes for a total of 3 DOSES or call 911 if NO relief. Oxycodone-Acetaminophen (Percocet) 10-325 mg Tab 1 TAB PO Q6H PRN for PAIN, TAB 0 Refills Pantoprazole (Pantoprazole) 40 Mg Tab 40 MG PO BID for Reflux, #30 TAB 0 Refills Potassium Chloride Microencaps (Potassium Chloride Microencaps) 10 Meq Tab 10 MEQ PO DAILY for Electrolyte Replacement, #90 TAB 1 Refill Pregabalin (Lyrica) 100 Mg Cap 150 MG PO BID, #60 CAP 0 Refills Ranitidine (Ranitidine) 150 Mg Cap 150 MG PO BID, #60 CAP 0 Refills Sumatriptan (Sumatriptan) 100 Mg Tab 100 MG PO ONCE PRN for MIGRAINE HEADACHE, #30 TAB 0 Refills If a satisfactory response has not been obtained at 2 hours, a second dose may be administered Smitha Tarango MD Jan 17, 2017 12:16
== END 2017-01-17 13:01 | disposition home or self-care (01) | DRG 872 ==
LOC: PHED 10:30 → PHEDA 11:09 → PH3A 12:13
PROVIDERS: ADMIT Family Medicine; ATTEND Family Medicine
DX: A41.9 Sepsis, unspecified organism (principal); E11.22 Type 2 diabetes mellitus with diabetic chronic kidney disease; E11.40 Type 2 diabetes mellitus with diabetic neuropathy, unspecified; L03.116 Cellulitis of left lower limb; I12.9 Hypertensive chronic kidney disease with stage 1 through stage 4 chronic kidney disease, or unspecified chronic kidney disease; N18.2 Chronic kidney disease, stage 2 (mild); E78.5 Hyperlipidemia, unspecified; I25.10 Atherosclerotic heart disease of native coronary artery without angina pectoris; K21.9 Gastro-esophageal reflux disease without esophagitis; M54.9 Dorsalgia, unspecified; G89.29 Other chronic pain; B95.0 Streptococcus, group A, as the cause of diseases classified elsewhere; L03.011 Cellulitis of right finger; E11.621 Type 2 diabetes mellitus with foot ulcer; L97.519 Non-pressure chronic ulcer of other part of right foot with unspecified severity; L97.529 Non-pressure chronic ulcer of other part of left foot with unspecified severity; E11.65 Type 2 diabetes mellitus with hyperglycemia; F17.210 Nicotine dependence, cigarettes, uncomplicated; I25.2 Old myocardial infarction; K58.9 Irritable bowel syndrome, unspecified; Z79.4 Long term (current) use of insulin; Z95.1 Presence of aortocoronary bypass graft; Z79.01 Long term (current) use of anticoagulants; F41.8 Other specified anxiety disorders; G43.909 Migraine, unspecified, not intractable, without status migrainosus; R00.0 Tachycardia, unspecified
CPT/HCPCS: 73130; 73620; 73720; 80048; 80053; 81001; 82565; 82948; 83605; 85025; 86403; 87040; 87070; 87184; 87186; 87205; 90714; 93005; 96365; 96366; 96367; A9579; J1170; J1650; J1815; J2405; J2543; J3370; J7030; J7040; J7050

== ENCOUNTER 2017-03-25 09:35 | Emergency (ER) | payer MEDICARE, MEDICAID ==
[~2017-03-25] VITALS: Ht 167.6 cm; Wt 91.0 kg
[~2017-03-25 09:35] MED LIST changes: +ASPI-516 CHEW; -ASPI81CH CHEW; -BACT800T5 PO; -CEPH-460 PO; +CEPH500C PO; +METO1TAB42 PO; -METO25TA6 PO; +PROM12.54 PO
[2017-03-25 09:48] VITALS: BP 113/62; PULSE 79; RESP 18; TEMP 97.2; O2SAT 96
[2017-03-25] MEDS ORDERED: PRED20 PO (10:19)
--- NOTE | 2017-03-25 10:20 | PD ---
HPI Chief Complaint: Back/ Neck Pain or Injury Time Seen by Provider: 10:10 Travel History International Travel<30 days: No Contact w/Intl Traveler<30days: No Traveled to known affect area: No History of Present Illness HPI 51-year-old male presents to the emergency department for evaluation of chronic low back pain. Patient states he has had chronic back pain for 2 years. He currently sees Dr. Bergman, orthopedist, pain management physician. He is currently prescribed Dilaudid 4 mg tablets. Patient states that he did not take her Dilaudid this morning because he was going to come here. He last took a Dilaudid last night. Patient states this is a typical exacerbation of his pain. He states he is at high tolerance to pain medication. He denies any fevers or chills. No loss of bowel or bladder control. No saddle anesthesias. No recent injury. Severity is moderate. Exacerbating factor is movement. Alleviating factor is medication. PFSH Past Medical History Hx Anticoagulant Therapy: Yes Anxiety: Yes Depression: Yes Heart Rhythm Problems: No Cancer: No Cardiac Catheterization: Yes Cardiovascular Problems: Yes High Cholesterol: Yes Chest Pain: Yes Congestive Heart Failure: No Cerebrovascular Accident: No Coronary Artery Disease: Yes (TRIPLE BYPASS) Diabetes: Yes Patient Takes Glucophage: No Diminished Hearing: No Endocrine: Yes GERD: Yes Genitourinary: Yes Headaches: Yes (Migraines) Hypertension: Yes Immune Disorder: No Musculoskeletal: Yes Neurologic: Yes Psychiatric: Yes Reproductive: Yes Respiratory: Yes Integumentary: Yes (cellulitis) Immunizations Current: Yes Migraines: Yes (Imitrex as needed) Myocardial Infarction: Yes Renal Failure: Yes Sleep Apnea: Yes (Apnea Machine at home) Past Surgical History Abdominal Surgery: No Body Medical Devices: Implanted spinal cord stimulator Cardiac Surgery: Yes (Triple Bypass- 2002) Coronary Artery Bypass Graft: Yes (2002) Ear Surgery: No Endocrine Surgery: No Eye Surgery: No Genitourinary Surgery: No Neurologic Surgery: Yes (Pain Stimulator Removed 2016) Oral Surgery: No Thoracic Surgery: No Other Surgery: Yes (Spinal cord stimulator, removed) Social History Alcohol Use: No Tobacco Use: Yes (04/30) Substance Use: No Allergies-Medications (Allergen,Severity, Reaction): Coded Allergies: atorvastatin (Unverified Allergy, Mild, Pt denies allergy- states he currently takes this medication, 03/25/17) Pt denies allergy- states he currently takes this medication 03/08/15 morphine (Unverified Adverse Reaction, Mild, vomiting, 03/25/17) Reported Meds & Prescriptions Reported Meds & Active Scripts Active Proair Hfa 8.5 GM Inh (Albuterol Sulfate) 90 Mcg/Act Aer 1 Puff INH Q4H PRN 108 mcg/actuation Glipizide 5 Mg Tab 5 Mg PO BIDAC Take 30 minutes before a meal Sumatriptan (Sumatriptan Succinate) 100 Mg Tab 100 Mg PO ONCE PRN If a satisfactory response has not been obtained at 2 hours, a second dose may be administered Metoprolol Succinate ER 24 HR (Metoprolol Succinate) 25 Mg Tab 12.5 Mg PO DAILY Potassium Chloride Microencaps 10 Meq Tab 10 Meq PO DAILY Reported Aspirin 81 Mg Chew 81 Mg CHEW DAILY Lantus Inj (Insulin Glargine) 1,000 Unit/10 Ml Vial 45 Units SQ DAILY Nitrostat SL (Nitroglycerin) 0.4 Mg Subl 0.4 Mg SL DIRECTED PRN 1 tablet under the tongue as needed for chest pain. Repeat every 5 minutes for a total of 3 DOSES or call 911 if NO relief. Atorvastatin (Atorvastatin Calcium) 40 Mg Tab 40 Mg PO HS Ranitidine (Ranitidine HCl) 150 Mg Cap 150 Mg PO BID Lyrica (Pregabalin) 100 Mg Cap 150 Mg PO BID Pantoprazole (Pantoprazole Sodium) 40 Mg Tab 40 Mg PO BID Isosorbide Mononitrate ER (Isosorbide Mononitrate) 120 Mg Cat 120 Mg PO DAILY Gabapentin 300 Mg Cap 400 Mg PO TID Review of Systems Except as stated in HPI: all other systems reviewed are Neg Physical Exam Narrative GENERAL: Well-nourished, well-developed male patient, afebrile. SKIN: Focused skin assessment warm/dry. HEAD: Normocephalic. Atraumatic. EYES: No scleral icterus. No injection or drainage. NECK: Supple, trachea midline. No JVD or lymphadenopathy. CARDIOVASCULAR: Regular rate and rhythm without murmurs, gallops, or rubs. Bilateral radial and pedal pulses are 2+. RESPIRATORY: Breath sounds equal bilaterally. No accessory muscle use. Lungs sounds are clear to auscultation. GASTROINTESTINAL: Abdomen soft, non-tender, nondistended. MUSCULOSKELETAL: No cyanosis, or edema. Bilateral upper and lower extremity strength 5/5. BACK: Nontender without obvious deformity. No CVA tenderness. Patient has tenderness to palpation midline lumbar spine and bilateral lumbar paraspinal musculature. Data Data Last Documented VS Vital Signs Date Time Temp Pulse Resp B/P (MAP) Pulse Ox O2 Delivery O2 Flow Rate FiO2 03/25/17 09:48 97.2 79 18 113/62 (79) 96 Orders Orders Dexamethasone Inj (Decadron Inj) (03/25/17 10:30) Orphenadrine Inj (Norflex Inj) (03/25/17 10:30) Ed Discharge Order (03/25/17 10:20) [facility] Medical Decision Making Medical Screen Exam Complete: Yes Emergency Medical Condition: Yes Medical Record Reviewed: Yes Differential Diagnosis Acute exacerbation of chronic back pain versus chronic pain syndrome versus herniated disc Narrative Course 51-year-old male presents to the emergency department for evaluation of chronic back pain. He is currently prescribed Dilaudid at home which she did not take this morning. I discussed the patient and need to follow up with his pain management physician as well as Dr. Bergman. He verbalizes agreement. Patient states he is diabetic, but tolerates steroids well and will monitor his blood sugar. Patient is given dexamethasone 8 mg IM, Norflex 60 mg IM. He'll be discharged with prescription for prednisone. He is to continue his Dilaudid as well as his tizanidine which he is prescribed by his pain management physician. He verbalizes agreement and understanding. The patient was discharged in stable condition with instructions, including return instructions and follow up instructions. Diagnosis Primary Impression: Chronic pain disorder Referrals: Pain Management 1 day Patient Instructions: Chronic Back Pain (ED), General Instructions Additional Instructions: Continue prescribed Dilaudid as directed as needed for pain. Continue prescribed muscle relaxant as directed as needed. Take prednisone as directed. Start this tomorrow. Follow-up with your pain management doctor. Return to the emergency department for any acute worsening of symptoms. Med/Other Pt SpecificInfo: Prescription(s) given Disposition: 01 DISCHARGE HOME Condition: Stable Cierra Langston MIGUE Mar 25, 2017 10:20
[2017-03-25] MEDS ORDERED: DEXAMETHASONE SOD PHOS 4 MG/ML VIAL IM ONE (10:30)
[2017-03-25] MEDS ORDERED: ORPHENADRINE INJ 60 MG/2 ML AMP IM ONE (10:30)
[2017-03-27] MEDS ORDERED: HYDR4TAB PO (13:24)
[2017-03-27] MEDS ORDERED: TIZA4TAB PO (13:24)
[2017-03-27] MEDS ORDERED: GABA600T PO (13:32)
[2017-03-29] MEDS ORDERED: GLIP10TA6 PO (13:44)
[2017-03-29] MEDS ORDERED: CITA10TA4 PO (13:44)
== END 2017-03-25 10:36 | disposition home or self-care (01) ==
LOC: PHED 09:35
DX: G89.29 Other chronic pain (principal); M54.5 Low back pain; E11.9 Type 2 diabetes mellitus without complications; I10 Essential (primary) hypertension; N19 Unspecified kidney failure; E78.00 Pure hypercholesterolemia, unspecified; G47.30 Sleep apnea, unspecified; I25.2 Old myocardial infarction; Z72.0 Tobacco use; Z79.4 Long term (current) use of insulin; Z79.01 Long term (current) use of anticoagulants; Z87.39 Personal history of other diseases of the musculoskeletal system and connective tissue; Z86.79 Personal history of other diseases of the circulatory system; Z86.59 Personal history of other mental and behavioral disorders; Z87.19 Personal history of other diseases of the digestive system; Z87.448 Personal history of other diseases of urinary system; Z86.69 Personal history of other diseases of the nervous system and sense organs
CPT/HCPCS: 99284; J1100; J2360

== ENCOUNTER 2018-04-09 13:28 | Observation (INO) ==
[2018-04-09] MEDS ORDERED: Methocarbamol 500 MG Tablet PO ONE (14:09)
[2018-04-09] MEDS ORDERED: HYDROmorphone PF Inj 2 MG/ML Vial IV.PUSH ONE ×2 (14:09→16:26)
--- NOTE | 2018-04-09 14:17 | ED ---
HPI General Chief complaint: Extremity Problem,Nontraumatic Stated complaint: neck/lt arm pain x 2 wks Time Seen by Provider: 04/09/18 13:53 Source: patient and family (Spouse) Mode of arrival: wheelchair Limitations: no limitations History of Present Illness HPI narrative: 52-year-old male with history of CAD, CABG in 2002, insulin dependent diabetes, hypertension, IBS, recent L3/L4 fusion in January of this year, here with his for evaluation of 2 weeks of neck pain as well as abdominal pain and bloating. Patient reports that for the last year he has been on Dilaudid for chronic low back pain. Since his lumbar fusion his pain has significantly improved, and 2 weeks ago he began the process of weaning himself off of his Dilaudid. Initially he was taking four or five 4 mg of oral Dilaudid pills daily. 2 weeks ago he cut this down to 2 pills daily. About the same time he began to noticed posterior neck pain which has been progressively worsening. He states the pain started spontaneously. He denies trauma. Pain is described as cramping, severe, constant, worse with movements. The pain occasionally radiates down his left arm and is described as sharp. He experiences occasional numbness to his left arm. He reports having 2 episodes of shortness of breath that lasted about 10-15 minutes in the last 2 weeks and has had a cough productive of yellowish sputum. No hemoptysis. No history of DVT or PE. He denies having chest pain. Patient reports that he had two bowel movements a day, however has had increasing abdominal pain throughout the day today described as bloating. This pain is moderate, constant , worse with movements. He has not had any vomiting. History of cholecystectomy earlier this year. He has felt cold, but denies having had a fever. He has had nasal congestion and mild upper respiratory symptoms. He also complains of diminished appetite because of his symptoms. Currently he does not have any numbness to any of his extremities. He denies IV substance abuse. Related Data Home Medications Medication Instructions Recorded Confirmed aspirin 81 mg PO DAILY 04/09/18 04/09/18 glipizide 15 mg PO BID 04/09/18 04/09/18 hydromorphone [Dilaudid] 4 mg PO BID PRN 04/09/18 04/09/18 insulin glargine [Lantus U-100 0 unit SUBCUT DAILY 04/09/18 04/09/18 Insulin] isosorbide mononitrate 120 mg PO QAM 04/09/18 04/09/18 oxycodone [OxyContin] 13.5 mg PO Q12H 04/09/18 04/09/18 pantoprazole 40 mg PO BID 04/09/18 04/09/18 pregabalin [Lyrica] 150 mg PO BID 04/09/18 04/09/18 ranitidine HCl 150 mg PO BID 04/09/18 04/09/18 Allergies Allergy/AdvReac Type Severity Reaction Status Date / Time morphine AdvReac Mild vomiting Verified 04/09/18 13:30 Review of Systems ROS: all other systems reviewed are negative [facility] Medical History Medical History CAD (coronary artery disease) (Acute) Cervical vertebral fusion (Acute) Diabetes (Acute) Neck pain (Acute) Neuropathy (Acute) Restless leg syndrome (Acute) Surgical History Surgical History History of lumbar fusion (Acute) Hx of cholecystectomy (Acute) Hx of coronary artery bypass surgery (Acute) Family History Family History Other CAD (coronary artery disease) Diabetes Social History Social History Substance History: No History of Abuse Smoking Status: Former smoker How Often Do You Have a Drink Containing Alcohol: Never Recent Travel in [facility] within the Last 8 Weeks: No Recent Out of Country Travel within the Last 8 Weeks: No Exam Narrative Exam Narrative: GENERAL: Well-developed, well-nourished, awake, keeps eyes closed, no apparent distress. SKIN: Focused skin assessment warm/dry. No rashes. Several well-healed surgical scars throughout his body which include median sternotomy scar, right upper quadrant abdominal scar from cholecystectomy. HEAD: Atraumatic. Normocephalic. EYES: Pupils equal, round, 3 mm, reactive to light. No scleral icterus. No injection or drainage. ENT: No nasal bleeding or discharge. Mucous membranes pink and moist. NECK: Trachea midline. No JVD. Significant midline cervical spine tenderness without step-off. CARDIOVASCULAR: Regular rate and rhythm. No murmur appreciated. Distal pulses brisk and equal bilaterally. RESPIRATORY: No accessory muscle use. Clear to auscultation. Breath sounds equal bilaterally. GASTROINTESTINAL: Abdomen soft, mildly distended, moderate diffuse tenderness, no peritoneal signs, no hernias, normal bowel sounds. MUSCULOSKELETAL: No obvious deformities. No clubbing. No cyanosis. No edema. Significant midline cervical spine tenderness without step-off. No midline thoracic or lumbar spine tenderness or step-off. Normal range of motion in bilateral upper and lower extremities with normal muscle strength. NEUROLOGICAL: Awake and alert. No obvious cranial nerve deficits. Motor grossly within normal limits. Normal speech. Normal range of motion in bilateral upper and lower extremities with normal strength and sensation. Normal woods warden strength bilaterally. PSYCHIATRIC: Appropriate mood and affect; insight and judgment normal. Course Initial Documented Vital Signs Temperature 97.3 F L 04/09/18 13:29 Pulse Rate 85 04/09/18 13:29 Respiratory Rate 20 04/09/18 13:29 Blood Pressure 157/94 H 04/09/18 13:29 Pulse Oximetry 97 04/09/18 13:29 Last Documented Vital Signs Temperature 97.3 F L 04/09/18 13:29 Pulse Rate 80 04/09/18 16:05 Respiratory Rate 18 04/09/18 17:25 Blood Pressure 134/71 04/09/18 16:05 Pulse Oximetry 95 04/09/18 16:15 Sign Out Sign Out Data: Patient Sign Out occurred on 04/09/18 at 16:49. Patient's care was discussed, and care was transferred from Timmy Avendaño MD to Osiel Smith MD. Sign Out Comment: Follow-up with neurosurgery recommendations and disposition. Last updated by Timmy Avendaño MD at 04/09/18 16:29 Post-Handoff Eval: Please refer to Dr Avendaño's note. The patient has LUE tingling and pain. Abdominal pain is reported. Pt has been tapering down his oral diluadid regimen for the past week. The Tn is 0.2. CT cervical spine with multiple findings, unlikely acute. Calls placed to Dr Inman of cardiology and Dr Jose Maria Bergman, neurosurgery, were paged at 505pm. Call to [facility] at 510PM. D/w Dr Cerna, who is covering for Dr Bergman. CT cspine findings do not reflect neurosurgical emergency. Pt ok to follow up as outpatient at pt's convenience. D/w Dr Sarmiento who is covering for Dr Inman or cardiology. Recommendation for transfer to [facility] was made in case of need for cath however pt had, in the interim, spoken with Dr Bond and refused cardiology consultation for this visit. Pt stated his main concern was pain control. Pt advised to cardiology recommendation however refused transfer. A discussion regarding inherent risks in so doing did not change the patient's mind. D/w Dr Bond for [facility], admission appreciated. Pt reported to Dr Bond that he does no want to see a salvage mend worker. Pt only wants pain control. Pt refused transfer to [facility]. Medical Decision Making MDM Narrative Medical decision making narrative: Vital signs reviewed. CBC and CMP reviewed. Patient was given 10 units of IV insulin for her BGL of 410. Lipase is 94. Troponin is 0.20. CT abdomen pelvis: CONCLUSION: 1. Status post interval cholecystectomy. 2. Unremarkable bowel gas pattern with no inflammatory change or obstruction. 3. Simple cysts again noted in both kidneys. 4. Mild hepatic steatosis. CT cervical spine: CONCLUSION: 1. Focal central bulging/protrusion and right paracentral bulging/protrusion with disc osteophyte complex at C3-4. 2. Broad-based bulging with disc osteophyte complex C4-5 3. Mild broad-based bulging C5-6 4. Mild to moderate central bulging C7-T1 5. Bilateral facet arthritis at multiple levels. 6. Primary degenerative changes, disc degeneration and disc space narrowing involving the mid to lower cervical spine. The patient and the patient's were made aware of all findings and provided a copy of both CT abdomen pelvis and CT cervical spine reports. Patient is requesting IV fluids because he feels dehydrated as well as more pain medication. I will give him another dose of 2 mg of IV Dilaudid. The patient's EKG shows slight changes from prior with changes in inferior leads of T wave flattening as well as in the lateral precordial leads. With this and slightly elevated troponin, the patient will be admitted for further cardiac eval. At approximately 4:00 PM at the end of my shift the patient was signed out to Dr. Smith who will discuss the case with on-call neurosurgeon for recommendations regarding the patient's CT cervical spine findings. He will also disposition the patient. Medical Screen Exam Complete: Yes Emergency Medical Condition: Yes Differential Diagnosis Differential Diagnosis: Cervicalgia, torticollis, cervical spinal stenosis, epidural abscess, gastritis, pancreatitis, hepatobiliary disease, ACS, Lab Data Result diagrams: 04/09/18 14:30 04/09/18 14:30 Lab Results 04/09/18 04/09/18 04/09/18 Range/Units 14:30 14:30 14:30 CBC w Diff Auto diff final WBC 11.0 (4.0-11.0) th/mm3 RBC 5.87 (4.50-5.90) mil/mm3 Hgb 15.6 (13.0-17.0) gm/dL Hct 47.7 (39.0-51.0) % MCV 81.2 (80.0-100.0) fL MCH 26.5 L (27.0-34.0) pg MCHC 32.6 (32.0-36.0) % RDW 13.5 (11.6-17.2) % Plt Count 228 (150-450) th/mm3 MPV 9.3 (7.0-11.0) fL Neut % (Auto) 84.3 H (16.0-70.0) % Lymph % (Auto) 11.3 (9.0-44.0) % Reeves % (Auto) 3.2 (0.0-8.0) % Eos % (Auto) 0.6 (0.0-4.0) % Baso % (Auto) 0.6 (0.0-2.0) % Neut # (Auto) 9.2 H (1.8-7.7) th/mm3 Lymph # (Auto) 1.2 (1.0-4.8) th/mm3 Reeves # (Auto) 0.4 (0.0-0.9) th/mm3 Eos # (Auto) 0.1 (0.0-0.4) th/mm3 Baso # (Auto) 0.1 (0.0-0.2) th/mm3 WBC Differential . Differential Comment . PT 10.6 (9.8-11.6) sec INR 1.0 Ratio APTT 24.5 (23.4-31.7) sec Sodium 131 L (136-145) meq/L Potassium 4.3 (3.5-5.1) meq/L Chloride 96 L (98-107) meq/L Carbon Dioxide 25.9 (21.0-32.0) meq/L Anion Gap 9 (5-15) meq/L BUN 16 (7-18) mg/dL Creatinine 1.20 (0.60-1.30) mg/dL Estimated GFR 64 L (>89) mL/min Random Glucose 410 H (74-106) mg/dL Calcium 8.9 (8.5-10.1) mg/dL Total Bilirubin 0.6 (0.2-1.0) mg/dL AST 29 (15-37) U/L ALT 32 (12-78) U/L Alkaline Phosphatase 146 H (45-117) U/L Total Creatine Kinase 76 (39-308) U/L Troponin I 0.20 H (0.02-0.05) ng/mL Total Protein 7.8 (6.4-8.2) g/dL Albumin 3.7 (3.4-5.0) g/dL Lipase 94 (73-393) U/L Imaging Data Radiologist's impression: Abdomen/Pelvis CT 04/09/18 14:09 CONCLUSION: 1. Status post interval cholecystectomy. 2. Unremarkable bowel gas pattern with no inflammatory change or obstruction. 3. Simple cysts again noted in both kidneys. 4. Mild hepatic steatosis. Cervical Spine CT 04/09/18 14:09 CONCLUSION: 1. Focal central bulging/protrusion and right paracentral bulging/protrusion with disc osteophyte complex at C3-4. 2. Broad-based bulging with disc osteophyte complex C4-5 3. Mild broad-based bulging C5-6 4. Mild to moderate central bulging C7-T1 5. Bilateral facet arthritis at multiple levels. 6. Primary degenerative changes, disc degeneration and disc space narrowing involving the mid to lower cervical spine. Chest X-Ray 04/09/18 14:09 CONCLUSION: Mild cardiomegaly with no acute cardiopulmonary disease. ECG Data Attestation: I personally reviewed and interpreted this ECG as follows: ( Ectopic atrial rhythm, rate 65, leftward axis, incomplete RBBB, LVH,) Discharge Plan Discharge Disposition Patient Disposition: ED Admit(ED Internal Use Only) Discharge Order Discharge Orders: ED Use Only Admit Order (Routine); Ordered 04/09/18 Ordered By: Osiel Smith Physicians Team ED Provider: Osiel Smith Primary Care Provider: Irlanda Jaramillo Attending Provider: Xiang Bond Other Providers: Mango Inman Status ED Status: Admitted Observation Patient
--- NOTE | 2018-04-09 14:45 | XR ---
EXAM DATE: 04/09/2018 2:29 PM EST AGE/SEX: 52 years / Male INDICATIONS: Left arm/upper chest/neck pain x 2 weeks. CLINICAL DATA: This is the patient's initial encounter. Patient reports that signs and symptoms have been present for 2 weeks and indicates a pain score of 10/10. MEDICAL/SURGICAL HISTORY: Diabetes. Hypertension. CAD. Neuropathy. CABG. Fusion, lumbar. C holecystectomy. COMPARISON: [facility], CHEST SINGLE AP, 11/26/2016. . FINDINGS: A single AP view of the chest demonstrates the lungs to be symmetrically aerated without evidence of mass, infiltrate or effusion. The heart size appears mildly prominent. Osseous structures are intact . The patient is status post median sternotomy. There are overlying electrocardiogram leads. CONCLUSION: Mild cardiomegaly with no acute cardiopulmonary disease. Electronically signed by: Xiang Mena MD 04/09/2018 2:43 PM EST
[2018-04-09 14:47] LABS: Baso # (Auto) 0.1 th/mm3 (0.0-0.2); Baso % (Auto) 0.6 % (0.0-2.0); Eos # (Auto) 0.1 th/mm3 (0.0-0.4); Eos % (Auto) 0.6 % (0.0-4.0); Hematocrit 47.7 % (39.0-51.0); Hemoglobin 15.6 gm/dL (13.0-17.0); Lymph # (Auto) 1.2 th/mm3 (1.0-4.8); Lymph % (Auto) 11.3 % (9.0-44.0); Mean Corpuscular HGB Conc 32.6 % (32.0-36.0); Mean Corpuscular Hemoglobin 26.5 pg (27.0-34.0); Mean Corpuscular Volume 81.2 fL (80.0-100.0); Mean Platelet Volume 9.3 fL (7.0-11.0); Mono # (Auto) 0.4 th/mm3 (0.0-0.9); Mono % (Auto) 3.2 % (0.0-8.0); Neut # (Auto) 9.2 th/mm3 (1.8-7.7); Neut % (Auto) 84.3 % (16.0-70.0); Platelet Count 228 th/mm3 (150-450); Red Blood Count 5.87 mil/mm3 (4.50-5.90); Red Cell Distribution Width 13.5 % (11.6-17.2)
[2018-04-09 14:50] LABS: Chloride 96 meq/L (98-107); Potassium 4.3 meq/L (3.5-5.1); Sodium 131 meq/L (136-145)
[2018-04-09 14:53] LABS: Calcium 8.9 mg/dL (8.5-10.1)
[2018-04-09 14:54] LABS: Albumin 3.7 g/dL (3.4-5.0); Anion Gap 9 meq/L (5-15); Carbon Dioxide 25.9 meq/L (21.0-32.0); Lipase 94 U/L (73-393)
[2018-04-09 14:56] LABS: Activated Partial Thrombo Time 24.5 sec (23.4-31.7); Prothrombin Time 10.6 sec (9.8-11.6)
[2018-04-09 15:00] LABS: Alanine Aminotransferase 32 U/L (12-78); Alkaline Phosphatase 146 U/L (45-117); Aspartate Aminotransferase 29 U/L (15-37); Blood Urea Nitrogen 16 mg/dL (7-18); Glomerular Filtration Rate 64 mL/min (>89); Glucose,Random 410 mg/dL (74-106); Total Protein 7.8 g/dL (6.4-8.2)
[2018-04-09 15:01] LABS: Creatine Kinase 76 U/L (39-308)
--- NOTE | 2018-04-09 15:51 | ECG ---
Date Performed: 04/09/2018 Time Performed: 14:35:14 PTAGE: 52 years EKG: One of the leads appears to be missing and I would repeat the EKG. PREVIOUS TRACING : 01/12/2017 11.21 DOCTOR: Jean Lynch Interpretating Date/Time 04/09/2018 15:49:56
--- NOTE | 2018-04-09 16:03 | CT ---
EXAM DATE: 04/09/2018 3:54 PM EST AGE/SEX: 52 years / Male INDICATIONS: Diffuse abdominal pain. Bloating. CLINICAL DATA: This is the patient's initial encounter. Patient reports that signs and symptoms have been present for 2 weeks and indicates a pain score of 5/10. MEDICAL/SURGICAL HISTORY: Diabetes. Cardiovascular disease. Irritable bowel syndrome. Hypert ension. Cholecystectomy. Fusion, cervical. Fusion, lumbar. CABG. ORAL CONTRAST: No oral contrast ingested. RADIATION DOSE: 21.17 CTDI (mGy) COMPARISON: [facility], CT ABDOMEN & PELVIS W CONTRAST, 05/06/2015. . TECHNIQUE: Multiple contiguous axial images were obtained through the abdomen and pelvis following b olus infusion of 95 ml Omnipaque 350 (iohexol) nonionic water-soluble contrast as a single exam dos e. No oral contrast ingested. Using automated exposure control and adjustment of the mA and/or kV ac cording to patient size, radiation dose was kept as low as reasonably achievable to obtain optimal di agnostic quality images. DICOM format image data is available electronically for review and comparis on. FINDINGS: Lower Lungs: The visualized lower lungs are clear. The patient is status post median sternotomy. Liver: The liver has a homogeneous density without space-occupying lesion. There is no dilation of th e biliary tree. The patient is status post interval cholecystectomy. There is mild hepatic steatosis again noted. Spleen: Homogeneous density without enlargement. Pancreas: Unremarkable without mass or calcification. Kidneys: Normal in size and shape. No evidence of a solid mass or hydronephrosis. There are multiple small bilateral cysts again noted. Adrenal Glands: Unremarkable. Aorta: The aorta and proximal iliac vessels are grossly unremarkable without aneurysmal dilation. Bowel/Mesentery: The bowel loops are grossly unremarkable. The cecum and sigmoid colon have a normal configuration. Abdominal Wall: Intact. Retroperitoneum: No evidence of adenopathy in the retrocrural, para-aortic, or deep pelvic regions. Bladder: Contours are smooth. Reproductive Organs: No abnormal masses or calcifications seen. Inguinal: The inguinal region is unremarkable without evidence of adenopathy. Bony Structures: Osteopenia, degenerative change and mild scoliosis are noted. Postsurgical changes are again noted in the lumbar spine. CONCLUSION: 1. Status post interval cholecystectomy. 2. Unremarkable bowel gas pattern with no inflammatory change or obstruction. 3. Simple cysts again noted in both kidneys. 4. Mild hepatic steatosis. Electronically signed by: Xiang Mena MD 04/09/2018 4:02 PM EST
--- NOTE | 2018-04-09 16:09 | CT ---
EXAM DATE: 04/09/2018 4:03 PM EST AGE/SEX: 52 years / Male INDICATIONS: Neck pain x 2 weeks. CLINICAL DATA: This is the patient's initial encounter. Patient reports that signs and symptoms have been present for 2 weeks and indicates a pain score of 7/10. MEDICAL/SURGICAL HISTORY: Diabetes. Cardiovascular disease. Irritable bowel syndrome. Hypert ension. Cholecystectomy. Fusion, cervical. Fusion, lumbar. CABG. RADIATION DOSE: 26.63 CTDI (mGy) COMPARISON: No prior exams available for comparison. TECHNIQUE: Contiguous axial images were obtained using helical multirow detector technique. The vol umetric data was post-processed with multiplanar reconstruction in oblique axial, sagittal, and coron al planes. Using automated exposure control and adjustment of the mA and/or kV according to patient s ize, radiation dose was kept as low as reasonably achievable to obtain optimal diagnostic quality emanuel ges. DICOM format image data is available electronically for review and comparison. FINDINGS: Vertebrae: Normal vertebral body height. There are some mild degenerative changes noted throughout t he cervical spine. There is some disc space narrowing at C3-4, C4-5, C5-6 and C6-7. No compression fr acture injuries are demonstrated. j Alignment: Normal. No subluxation. C2-3: The bony spinal canal is normal in size. No evidence of disc bulge or herniation. The neural foramina are bilaterally patent. C3-4: Focal central bulging/protrusion and right paracentral bulging/protrusion with disc osteophyte complex. The neural foramina are patent bilaterally. No significant spinal canal stenosis. C4-5: Broad-based bulging with disc osteophyte complex. The neural foramina are patent bilaterally. No significant spinal canal stenosis. C5-6: Mild broad-based bulging. The neural foramina are patent bilaterally. Mild facet arthritis. C6-7: The bony spinal canal is normal in size. No evidence of disc bulge or herniation. The neural foramina are bilaterally patent. Bilateral facet arthritis. C7-T1: Mild to moderate central bulging. The neural foramina are patent bilaterally. Mild facet arth ritis. CONCLUSION: 1. Focal central bulging/protrusion and right paracentral bulging/protrusion with disc osteophyte co mplex at C3-4. 2. Broad-based bulging with disc osteophyte complex C4-5 3. Mild broad-based bulging C5-6 4. Mild to moderate central bulging C7-T1 5. Bilateral facet arthritis at multiple levels. 6. Primary degenerative changes, disc degeneration and disc space narrowing involving the mid to low er cervical spine. Electronically signed by: Agustin Jain MD 04/09/2018 4:08 PM EST
[2018-04-09] MEDS ORDERED: Sod Chloride 0.9% Inj 1,000 ML IV.SIG SCH (16:30)
[2018-04-09] MEDS ORDERED: Bisacodyl 10 MG Supp RECTAL PRN (17:38)
[2018-04-09] MEDS ORDERED: Acetaminophen 325 MG Tablet PO PRN (17:38)
[2018-04-09] MEDS ORDERED: Dextrose 50% in Water 50 ML Vial IV.PUSH PRN (17:41)
--- NOTE | 2018-04-09 17:44 | P.HPIM ---
History of Present Illness Primary Care Physician: MOR Navarro Chief Complaint: Neck pain History of Present Illness: The patient is a 52-year-old male with a past medical history of CAD status post CABG and diabetes who is presenting to the hospital with significant neck pain. He states he has had neck pain for the past few weeks. He describes the pain as a cramping type of pain. He says that the pain gets so bad that it radiates down his left arm. He says the pain gets worse with movement. He says he does follow with the neurosurgeon and is status post L3-L4 fusion in January. He says his chronic back pain has improved but he has not had his neck pain worked up. He says he is on p.o. Dilaudid via his pain management specialists. He says he is currently on 4 mg of Dilaudid twice a day. He has had associated constipation. He denies any chest pain or shortness of breath. He states he has had 5 heart attacks in his past. He does follow with a label pinker regularly. He said there was a period of time where he stopped taking his M door but has recently restarted that medication. He is not interested in transfer to the main hospital for neurosurgical workup at this time as he has a special needs son and does not want to be far away from him. Review of Systems All other systems reviewed negative except as stated in HPI PMFSH - History History Provided By: Patient - Medical History Medical History: Medical History (Last Updated 04/09/18 @ 17:43 by Xiang Bond DO) CAD (coronary artery disease) Cervical vertebral fusion Diabetes Neck pain Neuropathy Restless leg syndrome - Surgical History Surgical History: Surgical History (Last Updated 04/09/18 @ 17:42 by Xiang Bond DO) History of lumbar fusion Hx of cholecystectomy Hx of coronary artery bypass surgery - Family History Family History: Family History (Last Updated 04/09/18 @ 17:43 by Xiang Bond DO) Other CAD (coronary artery disease) Diabetes - Social History I have reviewed the patient's Social History: Yes - Tobacco History Tobacco Use In Past 30 Days: Yes Smoking Status: Former smoker - Alcohol History How Often Do You Have a Drink Containing Alcohol: Never - Substance Use History Substance History: No History of Abuse - Travel History Recent Travel in the [facility] Within the Last 8 Weeks: No Recent Travel Out of the Country Within the Last 8 Weeks: No - Immunization History Tetanus Immunization: Unsure Medications and Allergies Active Medications: Active Medications Acetaminophen (Tylenol) 650 mg PO Q4H PRN PRN Reason: Temp > 100.4, pain 1-2 Al Hydroxide/Mg Hydroxide (Milk Of Magnesia Liq) 30 ml PO Q12H PRN PRN Reason: Mild Constipation Aspirin (Ecotrin) 81 mg PO DAILY [facility] Bisacodyl (Dulcolax Supp) 10 mg RECTAL DAILY PRN PRN Reason: SEVERE CONSITIPATION Dextrose (D50w Vial) 50 ml IV.PUSH UNSCH PRN PRN Reason: PER HYPOGLYCEMIA PROTOCOL Enoxaparin Sodium (Lovenox Inj) 40 mg SQ Q24H [facility] Glucagon (Glucagon Inj) 1 mg OTHER PRN PRN PRN Reason: for Hypoglycemia Protocol Hydromorphone HCl (Dilaudid Pf Inj) 1 mg IV.PUSH Q4H PRN PRN Reason: BREAKTHROUGH PAIN Hydromorphone HCl (Dilaudid) 2 mg PO Q4H PRN PRN Reason: pain 3-10 Insulin Aspart (Novolog Insulin Correctional Sugar Inj) 0 unit SQ Q6HR [facility]; Protocol Lactulose (Lactulose Liq) 30 ml PO DAILY PRN PRN Reason: SEVERE CONSITIPATION Non-Formulary Medication (Pregabalin [Lyrica]) 150 mg PO BID [facility] Ondansetron HCl (Zofran Inj) 4 mg IV.PUSH Q6H PRN PRN Reason: NAUSEA OR VOMITING Pantoprazole Sodium (Protonix) 40 mg PO BID [facility] Senna/Docusate Sodium (Janeth-Colace) 1 tab PO BID [facility] Sennosides (Senokot) 17.2 mg PO Q12H PRN PRN Reason: Moderate Constipation Sodium Chloride (Ns Flush) 2 ml IV.FLUSH UNSCH PRN PRN Reason: FLUSH AFTER USING IV ACCESS Sodium Chloride (Ns Flush) 2 ml IV.FLUSH PRN PRN PRN Reason: FLUSH AFTER USING IV ACCESS Sodium Chloride (Ns Flush) 2 ml IV.FLUSH BID [facility] Allergies Allergy/AdvReac Type Severity Reaction Status Date / Time morphine AdvReac Mild vomiting Verified 04/09/18 13:30 Home Medications Medication Instructions Recorded Confirmed Type aspirin 81 mg PO DAILY 04/09/18 04/09/18 History glipizide 15 mg PO BID 04/09/18 04/09/18 History hydromorphone [Dilaudid] 4 mg PO BID PRN 04/09/18 04/09/18 History insulin glargine [Lantus U-100 0 unit SUBCUT DAILY 04/09/18 04/09/18 History Insulin] isosorbide mononitrate 120 mg PO QAM 04/09/18 04/09/18 History oxycodone [OxyContin] 13.5 mg PO Q12H 04/09/18 04/09/18 History pantoprazole 40 mg PO BID 04/09/18 04/09/18 History pregabalin [Lyrica] 150 mg PO BID 04/09/18 04/09/18 History ranitidine HCl 150 mg PO BID 04/09/18 04/09/18 History Exam Vital signs: Vital Signs 04/09/18 13:29 04/09/18 14:09 04/09/18 14:15 Temperature 97.3 F L Pulse Rate 85 Respiratory Rate 20 Blood Pressure 157/94 H Pulse Oximetry 97 92 L 96 04/09/18 15:11 04/09/18 15:15 04/09/18 16:05 Temperature Pulse Rate 69 80 Respiratory Rate 18 17 18 Blood Pressure 143/70 H 134/71 Pulse Oximetry 95 Intake & Output 04/08/18 04/09/18 04/09/18 18:59 06:59 18:59 Output Total 500 / 500 Balance -500 / -500 Weight 91 kg Output: Urine 500 / 500 Narrative: GENERAL: Well-developed, well-nourished, no apparent distress. SKIN: Focused skin assessment warm/dry. No rashes. Several well-healed surgical scars throughout his body which include median sternotomy scar, right upper quadrant abdominal scar from cholecystectomy. HEAD: Atraumatic. Normocephalic. EYES: Pupils equal, round, 3 mm, reactive to light. No scleral icterus. No injection or drainage. ENT: No nasal bleeding or discharge. Mucous membranes pink and moist. NECK: Trachea midline. No JVD. Significant midline cervical spine tenderness without step-off. CARDIOVASCULAR: Regular rate and rhythm. No murmur appreciated. Distal pulses brisk and equal bilaterally. RESPIRATORY: No accessory muscle use. Clear to auscultation. Breath sounds equal bilaterally. GASTROINTESTINAL: Abdomen soft, mildly distended, moderate diffuse tenderness, no peritoneal signs, no hernias, normal bowel sounds. MUSCULOSKELETAL: No obvious deformities. No clubbing. No cyanosis. No edema. NEUROLOGICAL: Awake and alert. No obvious cranial nerve deficits. Motor grossly within normal limits. Normal speech. Normal range of motion in bilateral upper and lower extremities with normal strength and sensation. Normal data sme strength bilaterally. PSYCHIATRIC: Appropriate mood and affect; insight and judgment normal. Results - Labs CBC & Chem 7: 04/09/18 14:30 04/09/18 14:30 Labs: Short CBC 04/09/18 Range/Units 14:30 WBC 11.0 (4.0-11.0) th/mm3 Hgb 15.6 (13.0-17.0) gm/dL Hct 47.7 (39.0-51.0) % Plt Count 228 (150-450) th/mm3 BMP 04/09/18 14:30 Sodium 131 L Potassium 4.3 Chloride 96 L Carbon Dioxide 25.9 BUN 16 Creatinine 1.20 Calcium 8.9 Cardiac Enzymes 04/09/18 Range/Units 14:30 Total Creatine Kinase 76 (39-308) U/L Troponin I 0.20 H (0.02-0.05) ng/mL Liver Function 04/09/18 Range/Units 14:30 Total Bilirubin 0.6 (0.2-1.0) mg/dL AST 29 (15-37) U/L ALT 32 (12-78) U/L Alkaline Phosphatase 146 H (45-117) U/L Albumin 3.7 (3.4-5.0) g/dL - Imaging Impressions Abdomen/Pelvis CT 04/09/18 14:09 CONCLUSION: 1. Status post interval cholecystectomy. 2. Unremarkable bowel gas pattern with no inflammatory change or obstruction. 3. Simple cysts again noted in both kidneys. 4. Mild hepatic steatosis. Cervical Spine CT 04/09/18 14:09 CONCLUSION: 1. Focal central bulging/protrusion and right paracentral bulging/protrusion with disc osteophyte complex at C3-4. 2. Broad-based bulging with disc osteophyte complex C4-5 3. Mild broad-based bulging C5-6 4. Mild to moderate central bulging C7-T1 5. Bilateral facet arthritis at multiple levels. 6. Primary degenerative changes, disc degeneration and disc space narrowing involving the mid to lower cervical spine. Chest X-Ray 04/09/18 14:09 CONCLUSION: Mild cardiomegaly with no acute cardiopulmonary disease. Caprini VTE Risk Assessment Caprini VTE Risk Assessment: Moderate/High Risk (score >= 2) Caprini Risk Assessment Model: Point Value = 1 Point Value = 2 Point Value = 3 Point Value = 5 Age 41-60 Minor surgery BMI > 25 kg/m2 Swollen legs Varicose veins or History of unexplained or recurrent spontaneous Oral contraceptives or hormone replacement Sepsis (< 1 month) Serious lung disease, including pneumonia (< 1 month) Abnormal pulmonary function Acute myocardial infarction Congestive heart failure (< 1 month) History of inflammatory bowel disease Medical patient at bed rest Age 61-74 Arthroscopic surgery Major open surgery (> 45 min) Laparoscopic surgery (> 45 min) Malignancy Confined to bed (> 72 hours) Immobilizing plaster cast Central venous access Age >= 75 History of VTE Family history of VTE Factor V Leiden Prothrombin 11304K Lupus anticoagulant Anticardiolipin antibodies Elevated serum homocysteine Heparin-induced thrombocytopenia Other congenital or acquired thrombophilia Stroke (< 1 month) Elective arthroplasty Hip, pelvis, or leg fracture Acute spinal cord injury (< 1 month) Prophylaxis Regimen: Total Risk Factor Score Risk Level Prophylaxis Regimen 0-1 Low Early ambulation 2 Moderate Order ONE of the following: *Sequential Compression Device (SCD) *Heparin 5000 units SQ BID 3-4 Higher Order ONE of the following medications: *Heparin 5000 units SQ TID *Enoxaparin/Lovenox 40 mg SQ daily (WT < 150 kg, CrCl > 30 mL/min) *Enoxaparin/Lovenox 30 mg SQ daily (WT < 150 kg, CrCl > 10-29 mL/min) *Enoxaparin/Lovenox 30 mg SQ BID (WT < 150 kg, CrCl > 30 mL/min) AND/OR *Sequential Compression Device (SCD) 5 or more Highest Order ONE of the following medications: *Heparin 5000 units SQ TID (Preferred with Epidurals) *Enoxaparin/Lovenox 40 mg SQ daily (WT < 150 kg, CrCl > 30 mL/min) *Enoxaparin/Lovenox 30 mg SQ daily (WT < 150 kg, CrCl > 10-29 mL/min) *Enoxaparin/Lovenox 30 mg SQ BID (WT < 150 kg, CrCl > 30 mL/min) AND *Sequential Compression Device (SCD) Assessment and Plan - Plan Neck pain The patient had a CT of the cervical spine which revealed: Focal central bulging /protrusion and right paracentral bulging/protrusion with disc osteophyte complex at C3-4; Broad-based bulging with disc osteophyte complex C4-5; Mild broad-based bulging C5-6; Mild to moderate central bulging C7-T1; Bilateral facet arthritis at multiple levels; Primary degenerative changes, disc degeneration and disc space narrowing involving the mid to lower cervical spine. -the pt would like to follow with his neurosurgeon either as an outpt or at another hospital. He does not want to be transferred to the main hospital for neurosurgery evaluation at this time. -pain control with PO and IV Dilaudid. Continue bowel regimen. -PT eval. Elevated troponin No chest pain or shortness of breath. CXR unremarkable. EKG appears unchanged. -telemetry. -trend trops. -repeat EKG. -cardiology consult requested. Chronic pain On PO Dilaudid as an outpt. He is trying to wean off. -wean down narcotics as able. -outpt follow-up with pain management. DM Poorly controlled. He is not compliant with diet or his medication regimen. -insulin sliding scale, Levemir HS and aspart with meals. Adjust as needed. -education. Hyponatremia Likely s/t hyperglycemia. -follow BMP. PPx: Lovenox
[2018-04-09] MEDS: Insulin NovoLOG Aspart Correctional Sugar Inj SQ SCH (18:37)
[2018-04-09] MEDS ORDERED: Insulin Detemir Inj 1,000 UNIT/10 ML Vial SQ SCH (21:00)
--- NOTE | 2018-04-09 21:00 | ECG ---
Date Performed: 04/09/2018 Time Performed: 17:43:36 PTAGE: 52 years EKG: Sinus rhythm LEFT ATRIAL ENLARGEMENT BORDERLINE LEFT AXIS DEVIATION INCOMPLETE RIGHT BUNDLE BRANCH BLOCK LEFT YOLANDA TRICULAR HYPERTROPHY AND ST-T CHANGE ABNORMAL ECG Nonspecific T wave changes PREVIOUS TRACING : 04/09/2018 14.35 DOCTOR: Jean Lynch Interpretating Date/Time 04/09/2018 20:59:07
[2018-04-09] MEDS: Enoxaparin Inj 40 MG/0.4 ML Syringe SQ SCH (21:15)
[2018-04-09] MEDS: Senna/Docusate Sodium 8.6/50 MG Tablet PO SCH (21:16)
[2018-04-09] MEDS: Pregabalin 75 MG Capsule PO SCH (21:16)
[2018-04-09] MEDS: HYDROmorphone PF Inj 2 MG/ML Vial IV.PUSH PRN (22:29)
[2018-04-10] MEDS: Insulin NovoLOG Aspart Correctional Sugar Inj SQ SCH ×4 (00:21→17:20)
[2018-04-10] MEDS: HYDROmorphone PF Inj 2 MG/ML Vial IV.PUSH PRN ×4 (03:58→21:02)
[2018-04-10 06:38] LABS: Baso # (Auto) 0.1 th/mm3 (0.0-0.2); Baso % (Auto) 0.6 % (0.0-2.0); Eos # (Auto) 0.2 th/mm3 (0.0-0.4); Eos % (Auto) 2.4 % (0.0-4.0); Hematocrit 44.4 % (39.0-51.0); Hemoglobin 14.6 gm/dL (13.0-17.0); Lymph # (Auto) 3.4 th/mm3 (1.0-4.8); Lymph % (Auto) 36.2 % (9.0-44.0); Mean Corpuscular HGB Conc 32.8 % (32.0-36.0); Mean Corpuscular Hemoglobin 26.6 pg (27.0-34.0); Mean Corpuscular Volume 81.1 fL (80.0-100.0); Mono # (Auto) 0.7 th/mm3 (0.0-0.9); Mono % (Auto) 7.4 % (0.0-8.0); Neut # (Auto) 4.9 th/mm3 (1.8-7.7); Neut % (Auto) 53.4 % (16.0-70.0); Platelet Count 218 th/mm3 (150-450); Red Blood Count 5.48 mil/mm3 (4.50-5.90); Red Cell Distribution Width 13.4 % (11.6-17.2); White Blood Count 9.3 th/mm3 (4.0-11.0)
[2018-04-10 06:44] LABS: Chloride 101 meq/L (98-107); Potassium 3.9 meq/L (3.5-5.1); Sodium 136 meq/L (136-145)
[2018-04-10 06:50] LABS: Calcium 8.7 mg/dL (8.5-10.1)
[2018-04-10 06:51] LABS: Albumin 3.4 g/dL (3.4-5.0); Anion Gap 8 meq/L (5-15); Carbon Dioxide 26.8 meq/L (21.0-32.0)
[2018-04-10 07:20] LABS: Alanine Aminotransferase 29 U/L (12-78); Alkaline Phosphatase 128 U/L (45-117); Aspartate Aminotransferase 22 U/L (15-37); Blood Urea Nitrogen 16 mg/dL (7-18); Glomerular Filtration Rate 70 mL/min (>89); Glucose,Random 219 mg/dL (74-106)
[2018-04-10] MEDS: Pregabalin 75 MG Capsule PO SCH ×2 (08:32→21:00)
[2018-04-10] MEDS: Senna/Docusate Sodium 8.6/50 MG Tablet PO SCH ×2 (08:33→21:00)
[2018-04-10] MEDS ORDERED: Influenza (Quadrivalent) Vaccine 0.5 ML Syringe IM ONE (09:00)
--- NOTE | 2018-04-10 12:28 | P.PNIM ---
Subjective Interval history: The patient said that he had no chest pain or shortness of breath. He worked with physical therapy earlier. He said his pain was controlled. He still did not want to be transferred to the main hospital. Discussed with nursing. Physical Exam Vital signs: Vital Signs 04/09/18 13:29 04/09/18 14:09 04/09/18 14:15 Temperature 97.3 F L Pulse Rate 85 Respiratory Rate 20 Blood Pressure 157/94 H Pulse Oximetry 97 92 L 96 04/09/18 15:11 04/09/18 15:15 04/09/18 16:05 Temperature Pulse Rate 69 80 Respiratory Rate 18 17 18 Blood Pressure 143/70 H 134/71 Pulse Oximetry 95 04/09/18 16:15 04/09/18 17:25 04/09/18 17:41 Temperature Pulse Rate 75 Respiratory Rate 18 16 Blood Pressure 132/82 Pulse Oximetry 95 04/09/18 18:45 04/09/18 20:00 04/10/18 00:00 Temperature 96.2 F L 96.1 F L Pulse Rate 79 61 67 Respiratory Rate 18 20 20 Blood Pressure 140/75 148/89 H Pulse Oximetry 100 100 04/10/18 00:30 04/10/18 04:00 04/10/18 08:00 Temperature 96.6 F L 96.3 F L Pulse Rate 54 L 59 L 73 Respiratory Rate 20 20 Blood Pressure 142/82 H 149/85 H Pulse Oximetry 100 100 04/10/18 08:02 Temperature Pulse Rate Respiratory Rate Blood Pressure Pulse Oximetry 98 Intake & Output 04/09/18 04/10/18 04/10/18 18:59 06:59 18:59 Intake Total 1000 / 1000 845 / 845 Output Total 500 / 500 Balance 500 / 500 845 / 845 Weight 91 kg 97.7 kg Intake: IV 1000 / 1000 NS Inj 1,000 ML @ 1000 mls/hr 1000 / 1000 IV.SIG BOLUS RAJESH Rx#:[id number] Oral 845 / 845 Output: Urine 500 / 500 Other: # Voids 1 Weight On Admission 100.2 kg Narrative: GENERAL: Well-developed, well-nourished, no apparent distress. SKIN: Focused skin assessment warm/dry. No rashes. Several well-healed surgical scars throughout his body which include median sternotomy scar, right upper quadrant abdominal scar from cholecystectomy. HEAD: Atraumatic. Normocephalic. EYES: Pupils equal, round, 3 mm, reactive to light. No scleral icterus. No injection or drainage. ENT: No nasal bleeding or discharge. Mucous membranes pink and moist. NECK: Trachea midline. No JVD. Significant midline cervical spine tenderness without step-off. CARDIOVASCULAR: Regular rate and rhythm. No murmur appreciated. Distal pulses brisk and equal bilaterally. RESPIRATORY: No accessory muscle use. Clear to auscultation. Breath sounds equal bilaterally. GASTROINTESTINAL: Abdomen soft, mildly distended, moderate diffuse tenderness, no peritoneal signs, no hernias, normal bowel sounds. MUSCULOSKELETAL: No obvious deformities. No clubbing. No cyanosis. No edema. NEUROLOGICAL: Awake and alert. No obvious cranial nerve deficits. Motor grossly within normal limits. Normal speech. Normal range of motion in bilateral upper and lower extremities with normal strength and sensation. Normal mcat tutor strength bilaterally. PSYCHIATRIC: Appropriate mood and affect; insight and judgment normal. Results - Labs CBC & Chem 7: 04/10/18 04:56 04/10/18 04:56 Laboratory Results - last 24 hr 04/09/18 04/09/18 04/09/18 14:30 14:30 14:30 CBC w Diff Auto diff final WBC 11.0 RBC 5.87 Hgb 15.6 Hct 47.7 MCV 81.2 MCH 26.5 L MCHC 32.6 RDW 13.5 Plt Count 228 MPV 9.3 Neut % (Auto) 84.3 H Lymph % (Auto) 11.3 Karnes % (Auto) 3.2 Eos % (Auto) 0.6 Baso % (Auto) 0.6 Neut # (Auto) 9.2 H Lymph # (Auto) 1.2 Karnes # (Auto) 0.4 Eos # (Auto) 0.1 Baso # (Auto) 0.1 WBC Differential . Differential Comment . PT 10.6 INR 1.0 APTT 24.5 Sodium 131 L Potassium 4.3 Chloride 96 L Carbon Dioxide 25.9 Anion Gap 9 BUN 16 Creatinine 1.20 Estimated GFR 64 L POC Glucose Random Glucose 410 H Calcium 8.9 Total Bilirubin 0.6 AST 29 ALT 32 Alkaline Phosphatase 146 H Total Creatine Kinase 76 Troponin I 0.20 H Total Protein 7.8 Albumin 3.7 Lipase 94 04/09/18 04/09/18 04/09/18 18:05 18:19 21:20 CBC w Diff WBC RBC Hgb Hct MCV MCH MCHC RDW Plt Count MPV Neut % (Auto) Lymph % (Auto) Karnes % (Auto) Eos % (Auto) Baso % (Auto) Neut # (Auto) Lymph # (Auto) Karnes # (Auto) Eos # (Auto) Baso # (Auto) WBC Differential Differential Comment PT INR APTT Sodium Potassium Chloride Carbon Dioxide Anion Gap BUN Creatinine Estimated GFR POC Glucose 254 H 171 H Random Glucose Calcium Total Bilirubin AST ALT Alkaline Phosphatase Total Creatine Kinase Troponin I 0.24 H Total Protein Albumin Lipase 04/10/18 04/10/18 04/10/18 00:20 00:30 04:56 CBC w Diff Auto diff final WBC 9.3 RBC 5.48 Hgb 14.6 Hct 44.4 MCV 81.1 MCH 26.6 L MCHC 32.8 RDW 13.4 Plt Count 218 MPV 9.0 Neut % (Auto) 53.4 Lymph % (Auto) 36.2 Karnes % (Auto) 7.4 Eos % (Auto) 2.4 Baso % (Auto) 0.6 Neut # (Auto) 4.9 Lymph # (Auto) 3.4 Karnes # (Auto) 0.7 Eos # (Auto) 0.2 Baso # (Auto) 0.1 WBC Differential . Differential Comment . PT INR APTT Sodium Potassium Chloride Carbon Dioxide Anion Gap BUN Creatinine Estimated GFR POC Glucose 125 H Random Glucose Calcium Total Bilirubin AST ALT Alkaline Phosphatase Total Creatine Kinase Troponin I 0.32 H Total Protein Albumin Lipase 04/10/18 04/10/18 04/10/18 04:56 04:56 05:49 CBC w Diff WBC RBC Hgb Hct MCV MCH MCHC RDW Plt Count MPV Neut % (Auto) Lymph % (Auto) Karnes % (Auto) Eos % (Auto) Baso % (Auto) Neut # (Auto) Lymph # (Auto) Karnes # (Auto) Eos # (Auto) Baso # (Auto) WBC Differential Differential Comment PT INR APTT Sodium 136 Potassium 3.9 Chloride 101 Carbon Dioxide 26.8 Anion Gap 8 BUN 16 Creatinine 1.10 Estimated GFR 70 L POC Glucose 193 H Random Glucose 219 H D Calcium 8.7 Total Bilirubin 0.6 AST 22 ALT 29 Alkaline Phosphatase 128 H Total Creatine Kinase Troponin I 0.31 H Total Protein 7.0 D Albumin 3.4 Lipase 04/10/18 04/10/18 07:53 11:30 CBC w Diff WBC RBC Hgb Hct MCV MCH MCHC RDW Plt Count MPV Neut % (Auto) Lymph % (Auto) Karnes % (Auto) Eos % (Auto) Baso % (Auto) Neut # (Auto) Lymph # (Auto) Karnes # (Auto) Eos # (Auto) Baso # (Auto) WBC Differential Differential Comment PT INR APTT Sodium Potassium Chloride Carbon Dioxide Anion Gap BUN Creatinine Estimated GFR POC Glucose 214 H 233 H Random Glucose Calcium Total Bilirubin AST ALT Alkaline Phosphatase Total Creatine Kinase Troponin I Total Protein Albumin Lipase Microbiology 04/09/18 14:55 Nasal Wash Influenza Types A,B Antigen - Final Negative for FLU A and B antigen Infection due to influenza A or B cannot be ruled out since the antigen present in the sample may be below the detection limit of the test. - Imaging Impressions Abdomen/Pelvis CT 04/09/18 14:09 CONCLUSION: 1. Status post interval cholecystectomy. 2. Unremarkable bowel gas pattern with no inflammatory change or obstruction. 3. Simple cysts again noted in both kidneys. 4. Mild hepatic steatosis. Cervical Spine CT 04/09/18 14:09 CONCLUSION: 1. Focal central bulging/protrusion and right paracentral bulging/protrusion with disc osteophyte complex at C3-4. 2. Broad-based bulging with disc osteophyte complex C4-5 3. Mild broad-based bulging C5-6 4. Mild to moderate central bulging C7-T1 5. Bilateral facet arthritis at multiple levels. 6. Primary degenerative changes, disc degeneration and disc space narrowing involving the mid to lower cervical spine. Chest X-Ray 04/09/18 14:09 CONCLUSION: Mild cardiomegaly with no acute cardiopulmonary disease. Assessment and Plan - Plan Neck pain The patient had a CT of the cervical spine which revealed: Focal central bulging /protrusion and right paracentral bulging/protrusion with disc osteophyte complex at C3-4; Broad-based bulging with disc osteophyte complex C4-5; Mild broad-based bulging C5-6; Mild to moderate central bulging C7-T1; Bilateral facet arthritis at multiple levels; Primary degenerative changes, disc degeneration and disc space narrowing involving the mid to lower cervical spine. -the pt would like to follow with his neurosurgeon either as an outpt or at another hospital. He does not want to be transferred to the main hospital for neurosurgery evaluation at this time. -pain control with PO and IV Dilaudid. Continue bowel regimen. -PT eval appreciated. Elevated troponin No chest pain or shortness of breath. CXR unremarkable. EKG appears unchanged. Trops peaked at 0.32. -telemetry. -cardiology consult requested. Chronic pain On PO Dilaudid as an outpt. He is trying to wean off. -wean down narcotics as able. -outpt follow-up with pain management. DM Poorly controlled. He is not compliant with diet or his medication regimen. -insulin sliding scale, Levemir HS and aspart with meals. Adjust as needed. -education. Hyponatremia Likely s/t hyperglycemia. -follow BMP. Resolved. PPx: Lovenox Discharge Planning: Await cardiac eval
[2018-04-10] MEDS ORDERED: Insulin Detemir Inj 1,000 UNIT/10 ML Vial SQ SCH (21:00)
[2018-04-10] MEDS: Enoxaparin Inj 40 MG/0.4 ML Syringe SQ SCH (21:00)
--- NOTE | 2018-04-10 21:15 | MB ---
cc: Israel Martins MD DATE: 04/10/2018 REQUESTING PHYSICIAN: Emergency room. CONSULTING PHYSICIAN: Israel Martins MD CHIEF COMPLAINT: Neck, arm pain, minimally elevated troponin. IMPRESSION: 1. Neck and arm pain, not ischemic in origin. The troponin elevations are minimal and chronic. 2. Atherosclerotic heart disease. 3. Patent grafts to the LAD, right coronary artery and circumflex obtuse marginal in the distant past. Negative PET scan late 2016. 4. Hypertension. 5. Hyperlipidemia all stable. RECOMMENDATIONS/DISCUSSION: No cardiac catheterization or other intervention is planned. The patient can follow up with Dr. Inman as an outpatient. He can be discharged first thing in the morning. He has just undergone 2 surgeries, one earlier this year for his gallbladder and one for his back in January of this year, both of which Dr. Inman cleared him for. These surgeries were uneventful. SUBJECTIVE: Mr. Jose is a 52-year-old white male with atherosclerotic heart disease, status post bypass surgery x3 with patent grafts in 2010 and negative PET late last year and chronic chest pain secondary to small vessel disease. Following his back surgery he began having problems with his neck and the reason he came to the emergency room on this occasion was because of severe neck pain with numbness and tingling in his left hand. CT scan apparently according to the patient has shown bulging disk in his neck and severe arthritis. Troponins were minimally elevated at 0.2. Electrocardiogram was unremarkable without acute change and I was asked to see him to clear him for discharge. He does have renal insufficiency, which probably accounts for the troponin elevation. PAST MEDICAL HISTORY: Remarkable for gallbladder surgery, diabetes mellitus, back surgery, hypertension, hyperlipidemia, history of migraine headaches, questionable claudication. He had a spinal stimulator in 2014. MEDICATIONS: 1. Xtampza oral capsules 18 mg twice a day. 2. Dilaudid 4 mg 3 times a day as needed. 3. Metoprolol 25 mg daily. 4. Atorvastatin 40 mg a day. 5. Potassium chloride 10 mEq a day. 6. Pantoprazole 40 mg a day. 7. Lantus insulin 42 units a day. 8. Lyrica oral capsules 50 mg 3 capsules a day. 9. Glyburide 5 mg 1 tablet twice a day. 10. Gabapentin 300 mg 1 capsule 4 times a day. 11. Lasix 40 mg 1 tablet once a day. 12. Aldactone 25 mg 1 tablet a day. 13. Aspirin 81 mg a day. 14. Isosorbide mononitrate 120 mg 1 tablet a day. It is unclear whether he continues to take this drug. 15. Zantac 150 mg twice a day. ALLERGIES: HE IS ALLERGIC TO MORPHINE. SOCIAL HISTORY: He recently stopped cigarette smoking. Lives at home with his . They have a special needs child. REVIEW OF SYSTEMS: GASTROINTESTINAL: Gallbladder recently removed. He said this made all of his eating intolerances go away. RESPIRATORY: No history of bronchitis, pleurisy, pneumonia. NEUROLOGIC: He has peripheral neuropathy. ENDOCRINE: He has diabetes mellitus. PHYSICAL EXAMINATION: VITAL SIGNS: Blood pressure 106/62, heart rate 70. HEENT: Pupils are equal. Sclerae are clear. NECK: Veins are not distended. Carotids are 2+ without audible bruits. CHEST: Chest wall is nontender. LUNGS: Clear to auscultation and percussion. HEART: Reveals a systolic murmur over the apex. ABDOMEN: Moderately obese. EXTREMITIES: Diminished pulses. He moves all extremities. Sensory is intact. DATA: Echocardiogram shows left axis and incomplete right bundle. DISCUSSION: None. Israel Martins MD [facility]/ct , 06:49 PM , 06:57 PM
[2018-04-11] MEDS: Insulin NovoLOG Aspart Correctional Sugar Inj SQ SCH ×3 (00:15→12:28)
[2018-04-11] MEDS: HYDROmorphone PF Inj 2 MG/ML Vial IV.PUSH PRN ×3 (01:10→12:12)
[2018-04-11] MEDS: Pregabalin 75 MG Capsule PO SCH (08:39)
[2018-04-11] MEDS: Senna/Docusate Sodium 8.6/50 MG Tablet PO SCH (08:40)
[2018-04-11 08:56] VITALS: RESP 15
--- NOTE | 2018-04-11 09:27 | P.PNIM ---
Subjective Interval history: The patient denied any chest pain or shortness of breath. He said that he spoke with the supervisor microwave yesterday. He said that he was still having a lot of neck pain. He said he will follow up with his neurosurgeon upon discharge. No other acute complaints. Physical Exam Vital signs: Vital Signs 04/10/18 12:00 04/10/18 16:00 04/10/18 16:10 Temperature 96.3 F L 97.5 F L Pulse Rate 59 L 59 L 58 L Respiratory Rate 20 20 Blood Pressure 132/73 128/74 Pulse Oximetry 99 98 04/10/18 20:00 04/10/18 20:39 04/11/18 03:55 Temperature 96 F L Pulse Rate 57 L 55 L Respiratory Rate 20 Blood Pressure 123/79 Pulse Oximetry 96 99 04/11/18 08:00 Temperature 96.4 F L Pulse Rate 68 Respiratory Rate 15 Blood Pressure 112/60 Pulse Oximetry 98 Intake & Output 04/10/18 04/11/18 04/11/18 18:59 06:59 18:59 Intake Total 474 / 474 Output Total 950 / 950 Balance -476 / -476 Weight 100 kg Intake: Oral 474 / 474 Output: Urine 950 / 950 Other: # Voids 4 # Bowel Movements 0 Narrative: GENERAL: Well-developed, well-nourished, no apparent distress. SKIN: Focused skin assessment warm/dry. No rashes. HEAD: Atraumatic. Normocephalic. EYES: Pupils equal, round, 3 mm, reactive to light. No scleral icterus. No injection or drainage. ENT: No nasal bleeding or discharge. Mucous membranes pink and moist. NECK: Trachea midline. No JVD. Significant midline cervical spine tenderness without step-off. CARDIOVASCULAR: Regular rate and rhythm. No murmur appreciated. Distal pulses brisk and equal bilaterally. RESPIRATORY: No accessory muscle use. Clear to auscultation. Breath sounds equal bilaterally. GASTROINTESTINAL: Abdomen soft, mildly distended, moderate diffuse tenderness, no peritoneal signs, no hernias, normal bowel sounds. MUSCULOSKELETAL: No obvious deformities. No clubbing. No cyanosis. No edema. NEUROLOGICAL: Awake and alert. No obvious cranial nerve deficits. Motor grossly within normal limits. Normal speech. Normal range of motion in bilateral upper and lower extremities with normal strength and sensation. Normal executive meeting manager strength bilaterally. PSYCHIATRIC: Appropriate mood and affect; insight and judgment normal. Results - Labs CBC & Chem 7: 04/10/18 04:56 04/10/18 04:56 Laboratory Results - last 24 hr 04/10/18 04/10/18 04/10/18 04:56 11:20 11:30 POC Glucose 233 H Troponin I 0.31 H 0.25 H 04/10/18 04/10/18 04/11/18 16:57 20:26 00:13 POC Glucose 251 H 277 H 232 H Troponin I 04/11/18 05:58 POC Glucose 194 H Troponin I Assessment and Plan - Plan Neck pain The patient had a CT of the cervical spine which revealed: Focal central bulging /protrusion and right paracentral bulging/protrusion with disc osteophyte complex at C3-4; Broad-based bulging with disc osteophyte complex C4-5; Mild broad-based bulging C5-6; Mild to moderate central bulging C7-T1; Bilateral facet arthritis at multiple levels; Primary degenerative changes, disc degeneration and disc space narrowing involving the mid to lower cervical spine. -the pt would like to follow with his neurosurgeon either as an outpt or at another hospital. He does not want to be transferred to the main hospital for neurosurgery evaluation at this time. He will call his neurosurgeon upon discharge. -pain control with PO and IV Dilaudid. Continue bowel regimen. -PT eval appreciated. Elevated troponin No chest pain or shortness of breath. CXR unremarkable. EKG appears unchanged. Trops peaked at 0.32. Cardiology consult appreciated. -telemetry. -cardiology follow-up as an outpt. Cleared for discharge. Chronic pain On PO Dilaudid as an outpt. He is trying to wean off. -wean down narcotics as able. -outpt follow-up with pain management. DM Poorly controlled. He is not compliant with diet or his medication regimen. -insulin sliding scale, Levemir HS and aspart with meals. Adjust as needed. -education. Hyponatremia Likely s/t hyperglycemia. -follow BMP. Resolved. PPx: Lovenox Discharge Planning: D/c home
[2018-04-11 12:16] VITALS: BP 142/75; PULSE 55; TEMP 96.8; O2SAT 99
== END 2018-04-11 14:08 | disposition home or self-care (01) ==
LOC: PHED 13:28 → PHEDA 13:28 → PH3 18:59
PROVIDERS: ADMIT Hospitalist; ATTEND Hospitalist